=== PATIENT | female | born 1955 | race American Indian/Alaskan Native ===

== ENCOUNTER 2017-01-23 12:50 | Emergency (ER) | payer SELFPAY ==
[2017-01-23 15:12] LABS: Basophils % (Auto) 2.1 % (0.0-1.8); Eosinophils % (Auto) 1.1 % (0.0-4.3); Hematocrit 36.6 % (30.3-42.9); Hemoglobin 11.6 gm/dl (10.1-14.3); Mean Corpuscular HGB Conc 32 % (30-34); Mean Corpuscular Hemoglobin 27 pg (28-32); Mean Corpuscular Volume 84 fl (79-97); Platelet Count 274 K/mm3 (140-440); Red Blood Count 4.36 M/mm3 (3.65-5.03); Red Cell Distribution Width 17.2 % (13.2-15.2)
[2017-01-23 15:14] LABS: BUN/Creatinine Ratio 12.22; Blood Urea Nitrogen 11 mg/dL (7-17); Calcium 9.4 mg/dL (8.4-10.2); Carbon Dioxide 23 mmol/L (22-30); Glucose 229 mg/dL (65-100)
[2017-01-23 15:15] LABS: Anion Gap 18 mmol/L; Chloride 102.9 mmol/L (98-107); Potassium 3.3 mmol/L (3.6-5.0); Sodium 141 mmol/L (137-145)
[2017-01-23 15:48] LABS: Bilirubin,Urine NEG (Negative); Blood,Urine NEG (Negative); Ketones,Urine NEG (Negative); Leukocyte Esterase,Urine SM (Negative); Nitrite,Urine NEG (Negative); RBC,Urine < 1.0 /HPF (0.0-6.0); Urobilinogen,Urine < 2.0 mg/dL (<2.0)
[2017-01-23] MEDS ORDERED: CATAPRES ONE (18:58)
[2017-01-23] MEDS ORDERED: CATAPRES PO ONE (19:02)
--- NOTE | 2017-01-23 19:08 | Emergency Department Report ---
HPI - General Chief Complaint: Nosebleed Time Seen by Provider: 01/23/17 18:47 - HPI HPI: Room 9 The patient is a 62-year-old female presenting with a chief complaint of epistaxis and hypertension. Patient states she developed a nosebleed yesterday this usually happens when her blood pressure is elevated. Patient states she has not been on her blood pressure medication for several months. Patient denies any other complaints. When asked how she is feeling currently the patient replies that she feels "fine." Patient denies headache chest pain or shortness of breath. Location: [see above] Duration: [see above] Quality: Painless Severity: Moderate Modifying factors: [see above] Context: [see above] Mode of transportation: [not driving] ED Past Medical Hx - Past Medical History Hx Hypertension: Yes Hx Diabetes: Yes Additional medical history: TIA - Surgical History Additional Surgical History: GANGLIAN CYST REMOVED RIGHT WRIST. PARTIAL HYSTERECTOMY - Family History Family history: no significant - Social History Smoking Status: Current Every Day Smoker (1/2 pack per day) Substance Use Type: None - Medications Home Medications: Home Medications Medication Instructions Recorded Confirmed Last Taken Type Clonidine HCl [Catapres] 0.2 mg PO TID 06/27/14 06/30/14 06/24/14 History Hydralazine HCl [Apresoline TAB] 50 mg PO TID #90 tablet 07/09/14 Unknown Rx Metformin HCl [metFORMIN ER] 500 mg PO BID #60 tab.er.24 07/09/14 Unknown Rx Valsartan/Hydrochlorothiazide 160 mg PO DAILY #30 tablet 07/09/14 Unknown Rx [Valsartan-Hctz 160-25 mg] amLODIPine [Norvasc] 5 mg PO DAILY #30 tablet 07/09/14 Unknown Rx cloNIDine [Catapres] 0.2 mg PO TID #90 tablet 01/23/17 Unknown Rx ED Review of Systems ROS: Stated complaint: ELEVATED BP Other details as noted in HPI Comment: All other systems reviewed and negative Constitutional: denies: chills, fever Eyes: denies: eye pain, eye discharge, vision change ENT: epistaxis Respiratory: denies: cough, shortness of breath, wheezing Cardiovascular: denies: chest pain, palpitations Endocrine: no symptoms reported Gastrointestinal: denies: abdominal pain, nausea, diarrhea Genitourinary: denies: urgency, dysuria, discharge Musculoskeletal: denies: back pain, joint swelling, arthralgia Skin: denies: rash, lesions Neurological: denies: headache, weakness, paresthesias Psychiatric: denies: anxiety, depression Hematological/Lymphatic: denies: easy bleeding, easy bruising Physical Exam - Physical Exam Vital Signs: Vital Signs 01/23/17 14:16 Temperature 98.1 F Pulse Rate 79 Respiratory 18 Rate Blood Pressure 192/104 O2 Sat by Pulse 98 Oximetry Vital Signs - 24 hr 01/23/17 01/23/17 01/23/17 14:16 19:05 19:11 Temperature 98.1 F Pulse Rate 79 74 74 Respiratory 18 18 Rate Blood Pressure 192/104 187/101 Blood Pressure 187/101 [Left] O2 Sat by Pulse 98 Oximetry 01/23/17 20:31 Temperature Pulse Rate 51 L Respiratory Rate Blood Pressure Blood Pressure 154/80 [Left] O2 Sat by Pulse 100 Oximetry Physical Exam: GENERAL: The patient is well-developed well-nourished female lying on stretcher not appearing to be in acute distress. [] HEENT: Normocephalic. Atraumatic. Extraocular motions are intact. Patient has moist mucous membranes. No epistaxis. NECK: Supple. No meningitic signs are noted. There is no adenopathy noted. CHEST/LUNGS: Clear to auscultation. There is no respiratory distress noted. HEART/CARDIOVASCULAR: Regular. There is no tachycardia. There is no gallop rub or murmur. ABDOMEN: Abdomen is soft, nontender. Patient has normal bowel sounds. There is no abdominal distention. SKIN: There is no rash. There is no edema. There is no diaphoresis. NEURO: The patient is awake, alert, and oriented. The patient is cooperative. The patient has no focal neurologic deficits. The patient has normal speech. Cranial nerves II through XII grossly intact, no drift MUSCULOSKELETAL: There is no evidence of acute injury. ED Course Vital Signs 01/23/17 14:16 Temperature 98.1 F Pulse Rate 79 Respiratory 18 Rate Blood Pressure 192/104 O2 Sat by Pulse 98 Oximetry ED Medical Decision Making - Lab Data Result diagrams: 01/23/17 14:45 01/23/17 14:45 Laboratory Tests 01/23/17 01/23/17 01/23/17 14:27 14:45 14:45 WBC 6.0 RBC 4.36 Hgb 11.6 Hct 36.6 MCV 84 MCH 27 L MCHC 32 RDW 17.2 H Plt Count 274 Lymph % (Auto) 38.2 H [place] % (Auto) 4.1 Eos % (Auto) 1.1 Baso % (Auto) 2.1 H Lymph # 2.3 [place] # 0.2 Eos # 0.1 Baso # 0.1 Seg Neutrophils % 54.5 Seg Neutrophils # 3.3 Sodium 141 Potassium 3.3 L Chloride 102.9 Carbon Dioxide 23 Anion Gap 18 BUN 11 Creatinine 0.9 Estimated GFR > 60 BUN/Creatinine Ratio 12.22 Glucose 229 H POC Glucose 271 H Calcium 9.4 Urine Color Urine Turbidity Urine pH Ur Specific [place] Urine Protein Urine Glucose (UA) Urine Ketones Urine Blood Urine Nitrite Urine Bilirubin Urine Urobilinogen Ur Leukocyte Esterase Urine WBC (Auto) Urine RBC (Auto) U Epithel Cells (Auto) 01/23/17 15:33 WBC RBC Hgb Hct MCV MCH MCHC RDW Plt Count Lymph % (Auto) [place] % (Auto) Eos % (Auto) Baso % (Auto) Lymph # [place] # Eos # Baso # Seg Neutrophils % Seg Neutrophils # Sodium Potassium Chloride Carbon Dioxide Anion Gap BUN Creatinine Estimated GFR BUN/Creatinine Ratio Glucose POC Glucose Calcium Urine Color Yellow Urine Turbidity Clear Urine pH 6.0 Ur Specific [place] 1.015 Urine Protein 30 mg/dl Urine Glucose (UA) 150 Urine Ketones Neg Urine Blood Neg Urine Nitrite Neg Urine Bilirubin Neg Urine Urobilinogen < 2.0 Ur Leukocyte Esterase Sm Urine WBC (Auto) 8.0 H Urine RBC (Auto) < 1.0 U Epithel Cells (Auto) < 1.0 - Differential Diagnosis epistaxis, hypertension Critical care attestation.: If time is entered above; I have spent that time in minutes in the direct care of this critically ill patient, excluding procedure time. ED Disposition Clinical Impression: HTN (hypertension), History of epistaxis Disposition: DISCHARGED TO HOME OR SELFCARE Is pt being admited?: No Does the pt Need Aspirin: No Condition: Stable Instructions: Epistaxis (ED), Hypertension (ED) Additional Instructions: Return to the emergency department immediately should you develop worsening symptoms, fever, inability to tolerate food or liquid or any other concerns. Prescriptions: cloNIDine [Catapres] 0.2 mg PO TID #90 tablet Referrals: VESTA THOMAS MD [Primary Care Provider] - ARIELA Time of Disposition: 21:00
[2017-01-23 20:32] VITALS: BP 154/80
== END 2017-01-23 21:27 | disposition home or self-care (01) ==
LOC: ED 12:50
DX: I10 Essential (primary) hypertension (principal); E11.9 Type 2 diabetes mellitus without complications; Z86.73 Personal history of transient ischemic attack (TIA), and cerebral infarction without residual deficits; Z90.711 Acquired absence of uterus with remaining cervical stump; F17.200 Nicotine dependence, unspecified, uncomplicated; Z79.84 Long term (current) use of oral hypoglycemic drugs
CPT/HCPCS: 36415; 80048; 81001; 82962; 85025; 99283

== ENCOUNTER 2017-03-13 09:35 | Emergency (ER) | payer SELFPAY ==
[2017-03-13 10:36] LABS: Basophils % (Auto) 0.8 % (0.0-1.8); Eosinophils % (Auto) 2.9 % (0.0-4.3); Hemoglobin 11.2 gm/dl (10.1-14.3); Mean Corpuscular HGB Conc 32 % (30-34); Mean Corpuscular Hemoglobin 27 pg (28-32); Mean Corpuscular Volume 83 fl (79-97); Platelet Count 242 K/mm3 (140-440); Red Blood Count 4.23 M/mm3 (3.65-5.03); Red Cell Distribution Width 15.5 % (13.2-15.2); White Blood Count 5.2 K/mm3 (4.5-11.0)
[2017-03-13 10:51] LABS: INR 1.05 (0.87-1.13); Partial Thromboplastin Time 28.2 Sec. (24.2-36.6)
[2017-03-13 10:52] LABS: Anion Gap 15 mmol/L; BUN/Creatinine Ratio 12.22; Blood Urea Nitrogen 11 mg/dL (7-17); Calcium 9.5 mg/dL (8.4-10.2); Carbon Dioxide 27 mmol/L (22-30); Chloride 102.7 mmol/L (98-107); Glucose 152 mg/dL (65-100); Potassium 3.8 mmol/L (3.6-5.0); Sodium 141 mmol/L (137-145)
[2017-03-13] MEDS ORDERED: CATAPRES PO ONE (12:20)
[2017-03-13] MEDS ORDERED: APRESOLINE IV ONE (12:20)
--- NOTE | 2017-03-13 12:34 | Emergency Department Report ---
ED Dizziness HPI - General Chief Complaint: High BP Stated Complaint: HIGH BLOOD PRESSURE Time Seen by Provider: 03/13/17 12:10 Source: patient Mode of arrival: Ambulatory Limitations: No Limitations - History of Present Illness MD Complaint: dizziness, lightheadedness -: Gradual Timing: gradual onset History of Same: Yes History of Trauma: No Severity: mild Improves With: nothing Worsens With: nothing Associated Symptoms: weakness. denies: ataxia, chest pain, confusion, cough, diaphoresis, fever/chills, loss of appetite, malaise, rash, seizure, shortness of breath, syncope - Related Data Previous Rx's Medication Instructions Recorded Last Taken Type Hydralazine HCl [Apresoline TAB] 50 mg PO TID #90 tablet 03/13/17 Unknown Rx amLODIPine [Norvasc] 10 mg PO DAILY #90 tablet 03/13/17 Unknown Rx glipiZIDE [Glucotrol] 10 mg PO QDAY #90 tablet 03/13/17 Unknown Rx Allergies Allergy/AdvReac Type Severity Reaction Status Date / Time No Known Allergies Allergy Verified 01/23/17 14:32 ED Review of Systems ROS: Stated complaint: HIGH BLOOD PRESSURE Other details as noted in HPI Comment: All other systems reviewed and negative ED Past Medical Hx - Past Medical History Previous Medical History?: Yes Hx Hypertension: Yes Hx CVA: Yes (no residual) Hx Congestive Heart Failure: No Hx Diabetes: Yes Hx Asthma: No Hx COPD: No Additional medical history: TIA - Surgical History Past Surgical History?: Yes Additional Surgical History: GANGLIAN CYST REMOVED RIGHT WRIST. PARTIAL HYSTERECTOMY - Social History Smoking Status: Current Every Day Smoker Substance Use Type: Prescribed - Medications Home Medications: Home Medications Medication Instructions Recorded Confirmed Last Taken Type Hydralazine HCl [Apresoline TAB] 50 mg PO TID #90 tablet 03/13/17 Unknown Rx amLODIPine [Norvasc] 10 mg PO DAILY #90 tablet 03/13/17 Unknown Rx glipiZIDE [Glucotrol] 10 mg PO QDAY #90 tablet 03/13/17 Unknown Rx ED Physical Exam - General Limitations: No Limitations (-) General appearance: alert, in no apparent distress - Head Head exam: Present: atraumatic, normocephalic - Eye Eye exam: Present: normal appearance - ENT ENT exam: Present: mucous membranes moist - Neck Neck exam: Present: normal inspection - Respiratory Respiratory exam: Present: normal lung sounds bilaterally. Absent: respiratory distress - Cardiovascular Cardiovascular Exam: Present: regular rate, normal rhythm. Absent: systolic murmur, diastolic murmur, rubs, gallop - GI/Abdominal GI/Abdominal exam: Present: soft, normal bowel sounds - Extremities Exam Extremities exam: Present: normal inspection - Back Exam Back exam: Present: normal inspection - Neurological Exam Neurological exam: Present: alert, oriented X3 - Psychiatric Psychiatric exam: Present: normal affect, normal mood - Skin Skin exam: Present: warm, dry, intact, normal color. Absent: rash ED Course Vital Signs 03/13/17 03/13/17 03/13/17 10:02 12:30 12:39 Temperature 98.2 F 98.7 F Pulse Rate 54 L 69 69 Respiratory 18 16 Rate Blood Pressure 184/114 224/110 Blood Pressure 224/110 [Left] O2 Sat by Pulse 100 98 Oximetry 03/13/17 03/13/17 03/13/17 12:40 12:42 13:00 Temperature Pulse Rate 69 Respiratory Rate Blood Pressure 224/110 Blood Pressure 118/56 [Left] O2 Sat by Pulse 99 Oximetry 03/13/17 13:36 Temperature Pulse Rate 68 Respiratory 14 Rate Blood Pressure Blood Pressure 140/56 [Left] O2 Sat by Pulse 99 Oximetry ED Medical Decision Making - Lab Data Result diagrams: 03/13/17 10:19 03/13/17 10:19 - EKG Data -: EKG Interpreted by Or EKG shows normal: sinus rhythm - EKG Data Interpretation: no acute changes - Radiology Data Radiology results: report reviewed, image reviewed - Medical Decision Making patient doing well, came for HTN urgency due to non compliance with meds. workup included labs and head ct and were negative. will refill her meds and dc with close follow up Critical care attestation.: If time is entered above; I have spent that time in minutes in the direct care of this critically ill patient, excluding procedure time. ED Disposition Clinical Impression: HTN (hypertension) Disposition: DISCHARGED TO HOME OR SELFCARE Is pt being admited?: No Does the pt Need Aspirin: No Condition: Good Instructions: Hypertension (ED) Prescriptions: amLODIPine [Norvasc] 10 mg PO DAILY #90 tablet glipiZIDE [Glucotrol] 10 mg PO QDAY #90 tablet Hydralazine HCl [Apresoline TAB] 50 mg PO TID #90 tablet Time of Disposition: 13:45
--- NOTE | 2017-03-13 13:04 | Cat Scan Report ---
CT HEAD WITHOUT CONTRAST INDICATION: Headache, hypertension. COMPARISON: 06/28/2014. FINDINGS: Noncontrast head CT demonstrates interval resolution of intracranial hemorrhage with mild ex-vacuo dilatation of the left lateral ventricle. Normal sulci and remainder ventricular system. Mild to moderate periventricular and white matter hypodense small vessel ischemic disease. No definite acute infarct, hemorrhage, mass effect or midline shift. No abnormal extra axial fluid collections. Normal posterior fossa with preserved basilar cisterns. Unremarkable eye globes. Clear imaged paranasal sinuses and mastoid air cells. Slight atherosclerotic internal carotid artery calcifications. Mild hyperostosis frontalis interna. Normal scalp. CONCLUSION: No acute intracranial CT abnormality with findings, as above. Thank you for the opportunity to participate in this patient's care.
[2017-03-13 14:52] VITALS: BP 163/71
== END 2017-03-13 14:50 | disposition home or self-care (01) ==
LOC: ED 09:35
DX: I10 Essential (primary) hypertension (principal); E11.9 Type 2 diabetes mellitus without complications; F17.200 Nicotine dependence, unspecified, uncomplicated
CPT/HCPCS: 36415; 70450; 80048; 84484; 85025; 85610; 85730; 93005; 93010; 96374; 99285; J0360

== ENCOUNTER 2017-08-21 11:35 | Emergency (ER) | payer SELFPAY ==
[2017-08-21 12:58] LABS: Basophils % (Auto) 0.5 % (0.0-1.8); Eosinophils % (Auto) 0.7 % (0.0-4.3); Hematocrit 35.3 % (30.3-42.9); Hemoglobin 11.3 gm/dl (10.1-14.3); Mean Corpuscular HGB Conc 32 % (30-34); Mean Corpuscular Hemoglobin 27 pg (28-32); Mean Corpuscular Volume 85 fl (79-97); Platelet Count 202 K/mm3 (140-440); Red Blood Count 4.15 M/mm3 (3.65-5.03); White Blood Count 4.9 K/mm3 (4.5-11.0)
[2017-08-21 12:59] LABS: Partial Thromboplastin Time 28.1 Sec. (24.2-36.6)
[2017-08-21 13:08] LABS: Anion Gap 17 mmol/L; BUN/Creatinine Ratio 16; Blood Urea Nitrogen 18 mg/dL (7-17); Calcium 9.1 mg/dL (8.4-10.2); Carbon Dioxide 25 mmol/L (22-30); Glucose 119 mg/dL (65-100); Potassium 3.9 mmol/L (3.6-5.0); Sodium 145 mmol/L (137-145)
--- NOTE | 2017-08-21 13:19 | Cat Scan Report ---
Cranial CT without contrast. History: Neurological deficits upon wakening. Findings: Comparison is made to the previous study on March 13, 2017. There is a round area of acute hemorrhage in the right thalamus measuring 1.4 cm in diameter. There is minimal extrinsic compression of the right lateral aspect of the third ventricle. No additional areas of hemorrhage are seen. The posterior fossa is normal. The ventricles are otherwise unremarkable. Bilateral periventricular white matter hypodensities are stable. There are no masses or extra-axial collections. The calvarium is normal. Impression: 1. Acute hemorrhagic infarct in the right thalamus with minimal mass effect as described. 2. Chronic periventricular white matter ischemic changes, stable since March 13, 2017. Comment: Code purple: These findings were given by phone to the charge nurse, Mr. Good in the emergency room at 1:10 PM on August 20, 2017.
--- NOTE | 2017-08-21 13:32 | Emergency Department Report ---
ED Neuro Deficit HPI - General Chief Complaint: Neuro Symptoms/Deficit Stated Complaint: LEFT SIDE WEAKNESS Time Seen by Provider: 08/21/17 13:26 Source: patient, family Mode of arrival: Wheelchair Limitations: No Limitations - History of Present Illness Initial Comments: This is a 62-year-old female with a history of hemorrhagic stroke who presents with left upper extremity weakness and clumsiness and unsteady gait. Symptoms started at 10:00 PM last night. They're constant. They have no exacerbating or relieving factors. CT scan in the ER today demonstrated a right-sided thalamic hemorrhagic stroke. -: Gradual Location: left arm Presenting Symptoms: Present: Weak/Paralyzed One Side History of same: Yes Place: home Severity: moderate Quality: weak, numb Improves With: none Worsens With: none On Anticoagulants: No Context: gradual onset Associated Symptoms: vertigo, weakness. denies: confusion, chest pain, diaphoresis, fever/chills, headaches, loss of appetite, malise, nausea/vomiting , shortness of breath, syncope - Related Data Home Medications: Previous Rx's Medication Instructions Recorded Last Taken Type Hydralazine HCl [Apresoline TAB] 50 mg PO TID #90 tablet 03/13/17 Unknown Rx amLODIPine [Norvasc] 10 mg PO DAILY #90 tablet 03/13/17 Unknown Rx glipiZIDE [Glucotrol] 10 mg PO QDAY #90 tablet 03/13/17 Unknown Rx Allergies/Adverse Reactions: Allergies Allergy/AdvReac Type Severity Reaction Status Date / Time No Known Allergies Allergy Verified 08/21/17 11:39 ED Review of Systems ROS: Stated complaint: LEFT SIDE WEAKNESS Other details as noted in HPI Constitutional: malaise. denies: fever Eyes: denies: vision change ENT: denies: epistaxis Respiratory: denies: cough Cardiovascular: denies: chest pain Gastrointestinal: denies: abdominal pain Genitourinary: denies: urgency, dysuria Musculoskeletal: denies: back pain Skin: denies: lesions Neurological: weakness, abnormal gait ED Past Medical Hx - Past Medical History Hx Hypertension: Yes Hx CVA: Yes (no residual) Hx Congestive Heart Failure: No Hx Diabetes: Yes Hx Asthma: No Hx COPD: No Additional medical history: TIA - Surgical History Additional Surgical History: GANGLIAN CYST REMOVED RIGHT WRIST. PARTIAL HYSTERECTOMY - Social History Smoking Status: Current Every Day Smoker Substance Use Type: None - Medications Home Medications: Home Medications Medication Instructions Recorded Confirmed Last Taken Type Hydralazine HCl [Apresoline TAB] 50 mg PO TID #90 tablet 03/13/17 Unknown Rx amLODIPine [Norvasc] 10 mg PO DAILY #90 tablet 03/13/17 Unknown Rx glipiZIDE [Glucotrol] 10 mg PO QDAY #90 tablet 03/13/17 Unknown Rx ED Neuro Physical Exam - General Limitations: No Limitations General appearance: alert, in no apparent distress Suspected Stroke: Yes - Head Head exam: Present: atraumatic, normocephalic - Eye Eye exam: Present: normal appearance, PERRL, EOMI, other (visual acuity intact to finger counting, color perception, reading at a close distance). Absent: nystagmus - ENT ENT exam: Present: normal exam, normal orophraynx, mucous membranes moist, normal external ear exam - Neck Neck exam: Present: normal inspection, full ROM. Absent: tenderness, meningismus - Respiratory Respiratory exam: Present: normal lung sounds bilaterally. Absent: respiratory distress, wheezes, rales, rhonchi, stridor, chest wall tenderness, accessory muscle use, decreased breath sounds, prolonged expiratory - Cardiovascular Cardiovascular Exam: Present: regular rate, normal rhythm, normal heart sounds. Absent: bradycardia, tachycardia, irregular rhythm, systolic murmur, diastolic murmur, rubs, gallop - GI/Abdominal GI/Abdominal exam: Present: soft, normal bowel sounds. Absent: distended, tenderness, guarding, rebound, rigid - Extremities Exam Extremities exam: Present: normal inspection, full ROM, normal capillary refill. Absent: pedal edema, joint swelling, calf tenderness - Back Exam Back exam: Present: normal inspection, full ROM. Absent: paraspinal tenderness , vertebral tenderness - Neurological Exam Neurological exam: Present: alert, oriented X3, abnormal gait (patient is clumsy and ataxic in the left upper extremity), motor sensory deficit (there is 4 out of 5 strength in the left upper extremity), other (there is no facial droop. The tongue is midline. Extraocular movements are intact bilaterally. Sensation intact to light touch in the bilateral upper and lower extremities.) - NIHSS Assessment Interval: Baseline 1a. Level of Consciousness: alert 1b. LOC Questions: answers correctly 1c. LOC Commands: performs tasks correctly 2. Best Gaze: normal 3. Visual: no visual loss 4. Facial Palsy: normal symmetrical movement 5b. Motor Arm Right: no drift 5a. Motor Arm Left: drift 6a. Motor Leg Left: no drift 6b. Motor Leg Right: no drift 7. Limb Ataxia: present 1 limb 8. Sensory: normal 9. Best Language: no aphasia 10. Dysarthria: normal 11. Extinction/Inattention: no abnormality Total Score: 2 Stroke Severity: Minor Stroke - Psychiatric Psychiatric exam: Present: normal affect, normal mood - Skin Skin exam: Present: warm, dry, intact, normal color. Absent: rash ED Course Vital Signs 08/21/17 08/21/17 08/21/17 11:39 13:26 13:31 Temperature 98.1 F Pulse Rate 87 Respiratory 18 Rate Blood Pressure 130/92 155/83 155/83 Blood Pressure [Left] O2 Sat by Pulse 97 99 100 Oximetry 08/21/17 08/21/17 08/21/17 14:00 14:25 14:30 Temperature Pulse Rate 52 L 49 L Respiratory 17 16 16 Rate Blood Pressure 158/88 167/83 Blood Pressure [Left] O2 Sat by Pulse 100 99 99 Oximetry 08/21/17 08/21/17 08/21/17 15:00 15:30 16:00 Temperature Pulse Rate 45 L 45 L 44 L Respiratory 11 L 12 16 Rate Blood Pressure 162/86 161/83 159/83 Blood Pressure [Left] O2 Sat by Pulse 99 99 100 Oximetry 08/21/17 08/21/17 08/21/17 16:29 16:30 17:00 Temperature Pulse Rate 50 L 52 L 65 Respiratory 17 16 Rate Blood Pressure 167/95 141/71 149/78 Blood Pressure [Left] O2 Sat by Pulse 98 100 Oximetry 08/21/17 08/21/17 17:30 18:40 Temperature Pulse Rate 72 67 Respiratory 14 16 Rate Blood Pressure 144/80 Blood Pressure 154/82 [Left] O2 Sat by Pulse 97 99 Oximetry - Reevaluation(s) Reevaluation #1: 08/21/17 14:53 Reassessed, appears comfortable, protecting airway. - Lab Data Result diagrams: 08/21/17 12:33 08/21/17 12:33 Lab Results 08/21/17 08/21/17 08/21/17 Range/Units 12:33 12:33 12:33 WBC 4.9 (4.5-11.0) K/mm3 RBC 4.15 (3.65-5.03) M/mm3 Hgb 11.3 (10.1-14.3) gm/dl Hct 35.3 (30.3-42.9) % MCV 85 (79-97) fl MCH 27 L (28-32) pg MCHC 32 (30-34) % RDW 15.0 (13.2-15.2) % Plt Count 202 (140-440) K/mm3 Lymph % (Auto) 39.5 H (13.4-35.0) % [place] % (Auto) 5.3 (0.0-7.3) % Eos % (Auto) 0.7 (0.0-4.3) % Baso % (Auto) 0.5 (0.0-1.8) % Lymph # 2.0 (1.2-5.4) K/mm3 [place] # 0.3 (0.0-0.8) K/mm3 Eos # 0.0 (0.0-0.4) K/mm3 Baso # 0.0 (0.0-0.1) K/mm3 Seg Neutrophils % 54.0 (40.0-70.0) % Seg Neutrophils # 2.7 (1.8-7.7) K/mm3 PT 13.7 (12.2-14.9) Sec. INR 1.00 (0.87-1.13) APTT 28.1 (24.2-36.6) Sec. Thrombin Time (15.1-19.6) Sec. Sodium 145 (137-145) mmol/L Potassium 3.9 (3.6-5.0) mmol/L Chloride 107.0 (98-107) mmol/L Carbon Dioxide 25 (22-30) mmol/L Anion Gap 17 mmol/L BUN 18 H (7-17) mg/dL Creatinine 1.1 (0.7-1.2) mg/dL Estimated GFR > 60 ml/min BUN/Creatinine Ratio 16 % Glucose 119 H (65-100) mg/dL Calcium 9.1 (8.4-10.2) mg/dL Troponin T < 0.010 (0.00-0.029) ng/mL 08/21/ Range/Units 12:33 WBC (4.5-11.0) K/mm3 RBC (3.65-5.03) M/mm3 Hgb (10.1-14.3) gm/dl Hct (30.3-42.9) % MCV (79-97) fl MCH (28-32) pg MCHC (30-34) % RDW (13.2-15.2) % Plt Count (140-440) K/mm3 Lymph % (Auto) (13.4-35.0) % [place] % (Auto) (0.0-7.3) % Eos % (Auto) (0.0-4.3) % Baso % (Auto) (0.0-1.8) % Lymph # (1.2-5.4) K/mm3 [place] # (0.0-0.8) K/mm3 Eos # (0.0-0.4) K/mm3 Baso # (0.0-0.1) K/mm3 Seg Neutrophils % (40.0-70.0) % Seg Neutrophils # (1.8-7.7) K/mm3 PT (12.2-14.9) Sec. INR (0.87-1.13) APTT (24.2-36.6) Sec. Thrombin Time 15.9 (15.1-19.6) Sec. Sodium (137-145) mmol/L Potassium (3.6-5.0) mmol/L Chloride (98-107) mmol/L Carbon Dioxide (22-30) mmol/L Anion Gap mmol/L BUN (7-17) mg/dL Creatinine (0.7-1.2) mg/dL Estimated GFR ml/min BUN/Creatinine Ratio % Glucose (65-100) mg/dL Calcium (8.4-10.2) mg/dL Troponin T (0.00-0.029) ng/mL - EKG Data -: EKG Interpreted by De EKG shows normal: sinus rhythm Rate: normal Interpretation: unchanged when compared t - Radiology Data Radiology results: report reviewed, image reviewed CT scan demonstrates right-sided thalamic stroke - Medical Decision Making Differential diagnosis: Hemorrhagic stroke, ischemic stroke Assessment and plan: 62-year-old female with spontaneous right-sided thalamic hemorrhagic stroke, left-sided ataxia and weakness, NIH score of 2, GCS of 15, not a thrombolysis or TPA candidate secondary to intracranial hemorrhage. This hospital does not have neurosurgery, or neurology or neuro critical care available for consultation. Given the presence of intracranial hemorrhage with neurologic findings, patient will benefit from transfer to a facility that has these aforementioned subspecialty services. Contacted [facility], they do not have ICU beds. Contacted [facility], case is discussed with Dr. Mayers, accepting neuro critical care physician, accepts patient to the ICU. Patient has no headache, neck pain, chest pain, abdominal pain or shortness of breath at this time. He does not recommend antiepileptic drug therapy at this time, the family informed. Patient informed. Critical Care Time: Yes Critical care time in (mins) excluding proc time.: 35 Critical care attestation.: If time is entered above; I have spent that time in minutes in the direct care of this critically ill patient, excluding procedure time. ED Disposition Clinical Impression: Acute intracerebral hemorrhage Disposition: [id number] IP Is pt being admited?: No Condition: Critical Referrals: PRIMARY CARE, [Primary Care Provider] - 3-5 Days
[2017-08-21] MEDS ORDERED: APRESOLINE IV ONE (16:24)
[2017-08-21] MEDS ORDERED: APRESOLINE ONE (16:28)
[2017-08-21 18:47] VITALS: BP 154/82
== END 2017-08-21 18:40 | disposition short-term general hospital (02) ==
LOC: ED 11:35
DX: I61.9 Nontraumatic intracerebral hemorrhage, unspecified (principal); I10 Essential (primary) hypertension; E11.9 Type 2 diabetes mellitus without complications; F17.200 Nicotine dependence, unspecified, uncomplicated; Z90.710 Acquired absence of both cervix and uterus
CPT/HCPCS: 36415; 70450; 80048; 84484; 85025; 85610; 85670; 85730; 93005; 93010; 96374; 99291; J0360

== ENCOUNTER 2018-01-25 13:06 | Emergency (ER) | payer OTHER ==
--- NOTE | 2018-01-25 15:03 | Cat Scan Report ---
FINAL REPORT EXAM: CT HEAD/BRAIN WO CON HISTORY: RT SIDE WEAKNESS TECHNIQUE: CT of the head was performed. No intravenous contrast was administered. PRIORS: None. FINDINGS: There is no evidence of intracranial hemorrhage. There is no edema, mass effect or midline shift. There are no abnormal extra-axial fluid collections. The ventricles are appropriate for brain volume. There is no skull fracture seen. The visualized aspects of the sinuses are clear. IMPRESSION: There is no acute intracranial abnormality identified.
[2018-01-25 15:24] LABS: Basophils # (Auto) 0.1 K/mm3 (0.0-0.1); Eosinophils # (Auto) 0.1 K/mm3 (0.0-0.4); Hematocrit 36.2 % (30.3-42.9); Hemoglobin 11.9 gm/dl (10.1-14.3); Lymphocytes # (Auto) 1.4 K/mm3 (1.2-5.4); Lymphocytes % (Auto) 24.7 % (13.4-35.0); Mean Corpuscular HGB Conc 33 % (30-34); Mean Corpuscular Hemoglobin 28 pg (28-32); Mean Corpuscular Volume 84 fl (79-97); Monocytes # (Auto) 0.3 K/mm3 (0.0-0.8); Monocytes % (Auto) 4.5 % (0.0-7.3); Platelet Count 184 K/mm3 (140-440); Red Blood Count 4.31 M/mm3 (3.65-5.03); Red Cell Distribution Width 16.2 % (13.2-15.2)
[2018-01-25 15:33] LABS: INR 0.89 (0.87-1.13); Partial Thromboplastin Time 26.9 Sec. (24.2-36.6); Thrombin Time 15.5 Sec. (15.1-19.6)
[2018-01-25 15:45] LABS: BUN/Creatinine Ratio 14; Blood Urea Nitrogen 10 mg/dL (7-17); Calcium 9.3 mg/dL (8.4-10.2); Hemolysis Index 2
--- NOTE | 2018-01-25 16:14 | Emergency Department Report ---
HPI - General Chief Complaint: Neuro Symptoms/Deficit Time Seen by Provider: 01/25/18 13:59 - HPI HPI: 63-year-old -Serbian female states she tripped and fell on the carpet and had some right-sided pain and weakness on the floor. Upon getting off the floor her weakness was gone, still having some pain. Denies any hip pain any chest pain. Patients can move all extremities, no slurred speech. Patient has a history of blood pressure, past CVA. ED Past Medical Hx - Past Medical History Hx Hypertension: Yes Hx CVA: Yes (no residual) Hx Congestive Heart Failure: No Hx Diabetes: Yes Hx Asthma: No Hx COPD: No Additional medical history: TIA - Surgical History Additional Surgical History: GANGLIAN CYST REMOVED RIGHT WRIST. PARTIAL HYSTERECTOMY - Social History Smoking Status: Never Smoker - Medications Home Medications: Home Medications Medication Instructions Recorded Confirmed Last Taken Type Hydralazine HCl [Apresoline TAB] 50 mg PO TID #90 tablet 03/13/17 Unknown Rx amLODIPine [Norvasc] 10 mg PO DAILY #90 tablet 03/13/17 Unknown Rx glipiZIDE [Glucotrol] 10 mg PO QDAY #90 tablet 03/13/17 Unknown Rx ED Review of Systems ROS: Stated complaint: LEFT SIDED WEAKNESS Other details as noted in HPI Comment: All other systems reviewed and negative ENT: denies: ear pain Musculoskeletal: denies: back pain, joint swelling Neurological: denies: headache, weakness Physical Exam - Physical Exam Vital Signs: Vital Signs 01/25/18 01/25/18 01/25/18 13:46 13:51 14:56 Temperature 98.3 F Pulse Rate 62 72 Respiratory 18 18 Rate Blood Pressure 153/89 Blood Pressure 170/93 [Right] O2 Sat by Pulse 96 96 Oximetry Physical Exam: - Physical Exam: - General Limitations: No Limitations General appearance: alert, in no apparent distress. - Head Head exam: Present: atraumatic, normocephalic - Eye Eye exam: Present: normal appearance - ENT ENT exam: Present: mucous membranes moist - Neck Neck exam: Present: normal inspection - Respiratory Respiratory exam: Present: normal lung sounds bilaterally. Absent: respiratory distress - Cardiovascular Cardiovascular Exam: Present: normal rhythm, tachycardia. Absent: systolic murmur, diastolic murmur, rubs, gallop - GI/Abdominal GI/Abdominal exam: Present: soft, normal bowel sounds - Extremities Exam Extremities exam: Present: normal inspection - Back Exam Back exam: Present: normal inspection - Neurological Exam Neurological exam: Present: alert, oriented X3 - Psychiatric Psychiatric exam: normal affect and mood - Skin Skin exam: Present: warm, dry, intact, normal color. Absent: rash ED Course Vital Signs 01/25/18 01/25/18 01/25/18 13:46 13:51 14:56 Temperature 98.3 F Pulse Rate 62 72 Respiratory 18 18 Rate Blood Pressure 153/89 Blood Pressure 170/93 [Right] O2 Sat by Pulse 96 96 Oximetry ED Medical Decision Making - Lab Data Result diagrams: 01/25/18 14:37 01/25/18 14:37 Critical care attestation.: If time is entered above; I have spent that time in minutes in the direct care of this critically ill patient, excluding procedure time. ED Disposition Clinical Impression: Fall Qualifiers: Encounter type: initial encounter Qualified Code(s): W19.XXXA - Unspecified fall, initial encounter Disposition: - TO HOME OR SELFCARE Is pt being admited?: No Does the pt Need Aspirin: No Condition: Stable Instructions: Fall Prevention for Older Adults (ED) Referrals: PRIMARY CARE, [Primary Care Provider] - 3-5 Days
[2018-01-25 17:52] VITALS: BP 165/94
== END 2018-01-25 17:30 | disposition home or self-care (01) ==
LOC: ED 13:06
DX: R53.1 Weakness (principal); M79.1 Myalgia; I10 Essential (primary) hypertension; E11.9 Type 2 diabetes mellitus without complications; Z86.73 Personal history of transient ischemic attack (TIA), and cerebral infarction without residual deficits
CPT/HCPCS: 36415; 70450; 80048; 84484; 85025; 85610; 85670; 85730; 93005; 93010; 99285

== ENCOUNTER 2019-01-26 17:22 | Inpatient (IN) | payer SELFPAY ==
[2019-01-26] MEDS ORDERED: TYLENOL PO PRN (19:12)
[2019-01-26] MEDS ORDERED: DULCOLAX PR PRN (19:12)
[2019-01-26] MEDS ORDERED: MILK OF MAGNESIA PO PRN (19:12)
[2019-01-26] MEDS ORDERED: D50W (25GM) Syringe IV PRN (19:12)
--- NOTE | 2019-01-26 20:19 | History and Physical Report ---
History of Present Illness Date: 01/26/19 Referring Facility: [facility] Date of admission: 01/26/19 19:49 Chief Complaint: CVA History of present illness: 64-year-old female who presented to the ED with stroke symptoms. Stated that nick campoverde had taken a nap and woke up with right facial droop and dysarthria. She was outside the therapeutic window for TPA and was not a candidate for thrombectomy. She was worked up for CVA and the brain MRI showed small left internal capsule lacunar infarct. Hemoglobin A1c at outside hospital was 5.3. She has a history of previous strokes in the past. She and her son state that she had recovered from previous strokes without major residual deficits. She is right hand dominant. She lives with family in a single story home and was previously independent with ADLs. She states is been several days since her last bowel movement. She's been sleeping poorly but declines assistance with medication. Secondary prevention was discussed with her and her son. Stroke prognosis and anticipated recovery time was also discussed. After the patient was medically stabilized they were transferred for further rehabilitation. All available medical records have been reviewed but there are limited records from the acute care hospital. Plan of care was discussed with patient and family and all questions were answered. Past History Past Medical History: diabetes, hypertension, hyperlipidemia, stroke Past Surgical History: No surgical history Social history: lives with family, smoking, full code, other (previously independent, single-story home). denies: alcohol abuse, prescription drug abuse, IV drug use Family history: CAD, cancer, diabetes, hypertension Medications and Allergies Allergies Allergy/AdvReac Type Severity Reaction Status Date / Time No Known Allergies Allergy Verified 08/21/17 11:39 Home Medications Medication Instructions Recorded Confirmed Last Taken Type Hydralazine HCl [Apresoline TAB] 50 mg PO TID #90 tablet 03/13/17 Unknown Rx amLODIPine [Norvasc] 10 mg PO DAILY #90 tablet 03/13/17 Unknown Rx glipiZIDE [Glucotrol] 10 mg PO QDAY #90 tablet 03/13/17 Unknown Rx Active Meds: Active Medications Acetaminophen (Tylenol) 650 mg PO Q4H PRN PRN Reason: Pain MILD(1-3)/Fever >100.5/ARCHER Amlodipine Besylate (Norvasc) 10 mg PO QDAY BAY Aspirin (Ecotrin) 325 mg PO QDAY BAY Atorvastatin Calcium (Lipitor) 40 mg PO QHS BAY Bisacodyl (Dulcolax) 10 mg GA QDAY PRN PRN Reason: Constipation unrelieved by MOM Carvedilol (Coreg) 6.25 mg PO BID BAY Dextrose (D50w (25gm) Syringe) 50 ml IV PRN PRN PRN Reason: Hypoglycemia Enoxaparin Sodium (Lovenox) 40 mg SUB-Q QDAY BAY Insulin Human Lispro (Humalog) 0 unit SUB-Q ACHS BAY; Protocol Lisinopril (Zestril) 40 mg PO QDAY BAY Magnesium Hydroxide (Milk Of Magnesia) 30 ml PO Q4H PRN PRN Reason: Constipation Review of Systems All systems: negative (ROS negative for 12 systems except as noted below with pertinent positives and negatives.) Constitutional: weakness Ears, nose, mouth and throat: dysphagia, voice changes, no decreased hearing Cardiovascular: high blood pressure, no chest pain, no rapid/irregular heart beat, no shortness of breath, no leg edema Respiratory: cough Gastrointestinal: constipation, no nausea, no vomiting Genitourinary Female: no dysuria Musculoskeletal: gait dysfunction Neurological: lack of coordination, change in speech, balance difficulties, gait dysfunction, sensory deficit, no headaches, no change in mentation, no double vision, no hearing difficulties Exam - Exam Narrative exam: MUSCULOSKELETAL SPECIALTY EXAM CONSTITUTIONAL: Well developed, well nourished, appropriately groomed. RIGHT hand dominant. LYMPHATIC: No appreciable abnormalities palpable in neck RESPIRATORY: Clear to ascultation bilaterally, no increased work of breathing CARDIOVASCULAR: Regular Rate/ Rhythm, no swelling, edema or tenderness in BUE or BLE. Pulses palpable in all extremities. All extremities warm. GI: + bowel sounds, soft, NTTP, nondistended. INTEGUMENTARY: Normal, no lesion, rash, masses or bruising noted in extremities. MUSCULOSKELETAL: BUE and BLE normal without defect, crepitus, subluxation, effusion, arthritic changes or TTP. SA EF WE EE FF FA HF KE ADF EHL APF R 4-/5 4-/5 4-/5 4-/5 4-/5 4-/5 4-/5 4-/5 4-/5 4-/5 4-/5 L 5/5 5/5 5/5 5/5 5/5 5 /5 5/5 5/5 5/5 5/5 5/5 ROM full Tone normal NEURO: CN II : Visual hedrick full to confrontation CN II, III : PERRL CN III, IV, : EOMI CN V : Facial sensation intact CN VII : Right facial droop CN VIII : Hearing intact to finger rustle CN IX, X : Palate/uvula elevate midline, phonation impaired CN XI : Intact shoulder shrug and head rotation CN XII : Tongue protrudes midline Sensation intact in all extremities with extinction present on RLE Reflexes 3+ bilaterally at biceps, brachioradialis and patella. No clonus at ankles. Coordination intact in LUE, and altered in RUE. No tremor noted in 4 extremities. Naming and repetition intact. Follows 2 step commands. Dysarthria present Dysphagia present Neglect not appreciated POSTURE and GAIT: Sitting posture good. Balance appears fair. Gait deferred until seen with therapy. PSYCH: Alert, orientated x3, affect appears flat. Insight appears intact. Assessment and Plan Assessment and plan: Patient was assessed and evaluated for Acute Inpatient Rehab Unit. Due to the patients above-mentioned medical complexity, along with decreased functional mobility and self care, this patient continues to require and be appropriate for a comprehensive, multidisciplinary [id number] rehabilitation program. These needs cannot be met in an outpatient or other less intensive setting. The patient would continue to benefit from skilled therapy intervention for at least 3 hours per day, five days a week, with techniques specific to the needs of the patient to improve function, activities of daily living, and reintegration into the community. The patient continues to require: -- OT to improve ROM, self-care, and learn use of adaptive equipment -- PT to improve strength and balance, functional transfers, and ambulation with energy conservation techniques to improve functional mobility -- EXCHANGE TROUBLE SHOOTER to address cognitive deficits and swallowing ability -- 24 hour RN to ensure and prevent skin breakdown, promote progressive independence while ensuring safety, ensure education regarding medications, and incorporation of the rehabilitation at the bedside -- 24 hour Graduate Student Instructor to coordinate this interdisciplinary program, and to manage/prevent complications as a result of the patients medical comorbidities. -Plan of care by day 4 -Weekly team conferences With such a program, there is a reasonable certainty that the goals individualized for this patient can be achieved within the specified length of stay. I69.351 CVA with hemiparesis of the right dominant side: Continue secondary stroke prevention. Monitor for post stroke depression and CRPS. Continue therapy in order to improve stroke recovery. Monitor for change in neurologic function or worsening of stroke symptoms. I69.391 Dysphagia: Continue dysphagia diet and advance as safely able. EXCHANGE TROUBLE SHOOTER monitor and may use FEES and/or MBS to assess for safe diet upgrade. E-stim if needed. I69.322 Dysarthria: Continue EXCHANGE TROUBLE SHOOTER strategies to improve vocalization and are alternative methods of communication if needed. K59.00 Constipation: Start MiraLAX monitor for improvement. Z73.6 ADL dysfunction: OT will work on improving ability to perform ADLs ( including assistive devices) to increase independence and decrease caregiver burden and improve functional transfers and mobility training. R26.2 Difficulty walking: PT will work on gait training and proper use of assistive devices and advance as appropriate to use of stairs and outside ambulation on uneven surfaces. R26.81 Unsteadiness on feet: PT will work on improving static and dynamic sitting and standing balance as well as proper use of assistive devices to decrease risk of falls. R26.89 Abnormality of gait: PT will work to improve safety and efficiency of gait through neuromotor training and gait training along with instruction on proper use of assistive devices. M62.81 Muscle weakness: PT & OT will work on strengthening exercises to improve functional strength including mixture of closed and open kinetic chain exercises. R53.81 Debility: PT & OT will work on improving overall functional status to improve participation with ADLs, mobility and social involvement. R53.83 Fatigue: PT & OT will work on improving endurance through aerobic exercises and therapeutic activity while monitoring patients tolerance for activity and vital signs as needed. Internal medicine consultation for management of diabetes and hypertension. Orders for medications have been placed and the holds were placed on antihypertensives. Appreciate their assistance DVT ppx: Lovenox Pain: Continue physical modalities in therapy and pain medications as needed to achieve functional pain control. Sleep: Monitor and address as needed. Bowel: Monitor and address as needed. Appetite: Monitor and address as needed. Discharge planning: Pending therapy progress and care plan meeting. Will continue discussion with therapy team, SW, patient and family. Restrictions/ Precautions: Falls, swallow WB status: FWB Functional Hx: ADLs: Independent Cognition: Independent Mobility: No AD Barriers to Discharge: Decreased mobility and ability to perform self care, balance deficits, weakness, dominant hemiparesis, dysphagia and dysarthria Estimated Length of Stay: 14-21 days Discharge Destination: Home with family POST ADMISSION PHYSICIAN EVALUATION I have examined the patient and find that functional status, medical condition and appropriateness for IRF admission are essentially unchanged from those described in the preadmission screening. Will monitor for worsening neurologic function and other disorders associated with CVA including shoulder-hand syndrome, post stroke depression, worsening dysphagia, DVT/PE, bowel and bladder complications and complications due to hypertension and diabetes and electrolyte abnormalities. Will attempt to avoid occurrence of these issues or treat them if they present themselves.
[2019-01-26] MEDS: HumaLOG SUB-Q SCH (23:06)
[2019-01-26] MEDS: COREG PO SCH (23:08)
[2019-01-27 05:35] LABS: Basophils % (Auto) 0.6 % (0.0-1.8); Eosinophils # (Auto) 0.1 K/mm3 (0.0-0.4); Hematocrit 32.5 % (30.3-42.9); Hemoglobin 10.6 gm/dl (10.1-14.3); Lymphocytes # (Auto) 2.2 K/mm3 (1.2-5.4); Lymphocytes % (Auto) 54.4 % (13.4-35.0); Mean Corpuscular HGB Conc 33 % (30-34); Mean Corpuscular Volume 84 fl (79-97); Monocytes # (Auto) 0.3 K/mm3 (0.0-0.8); Monocytes % (Auto) 6.7 % (0.0-7.3); Platelet Count 175 K/mm3 (140-440); Red Blood Count 3.85 M/mm3 (3.65-5.03); Red Cell Distribution Width 14.3 % (13.2-15.2)
[2019-01-27 05:54] LABS: Alanine Aminotransferase 6 units/L (7-56); Albumin 3.4 g/dL (3.9-5); BUN/Creatinine Ratio 10; Blood Urea Nitrogen 8 mg/dL (7-17); Chol/HDL Ratio 2.28 %; HDL Cholesterol 49 mg/dL (40-59); Hemolysis Index 2; LDL Cholesterol,Direct 56 mg/dL (50-130)
[2019-01-27] MEDS: HumaLOG SUB-Q SCH ×3 (07:32→16:29)
[2019-01-27] MEDS: NORVASC PO SCH (08:47)
[2019-01-27] MEDS: COREG PO SCH ×2 (08:47→22:14)
[2019-01-27] MEDS: MIRALAX 3350 PO SCH (08:48)
[2019-01-27] MEDS: LOVENOX SUB-Q SCH (08:48)
[2019-01-27] MEDS: ZESTRIL PO SCH (08:48)
[2019-01-27] MEDS: ECOTRIN PO SCH (08:49)
--- NOTE | 2019-01-27 15:20 | Consultation ---
History of Present Illness - Reason for Consult Consult date: 01/27/19 medical management Requesting physician: DAPHNE WYATT III - History of Present Illness 52 pleasant 64-year-old female patient with significant past medical history of diabetes mellitus hypertension dyslipidemia cerebrovascular accident with right facial weakness and dysarthria, patient was not a candidate for TPA or thrombectomy. Admitted to acute rehabilitation unit for rehabilitation PT/OT/ST.Medical consult requested for medical management Patient has history of type 2 diabetes mellitus on oral hypoglycemics, hypertension and dyslipidemia as well as ongoing tobacco use Time of my evaluation patient denies any chest pain or shortness of breath Denies headache dizziness, denies shortness of breath or cough Past History Past Medical History: diabetes, hypertension, hyperlipidemia, stroke Past Surgical History: No surgical history Social history: lives with family, smoking, full code, other (previously independent, single-story home). denies: alcohol abuse, prescription drug ab use, IV drug use Family history: CAD, cancer, diabetes, hypertension Medications and Allergies Allergies Allergy/AdvReac Type Severity Reaction Status Date / Time No Known Allergies Allergy Verified 08/21/17 11:39 Home Medications Medication Instructions Recorded Confirmed Last Taken Type Hydralazine HCl [Apresoline TAB] 50 mg PO TID #90 tablet 03/13/17 Unknown Rx amLODIPine [Norvasc] 10 mg PO DAILY #90 tablet 03/13/17 Unknown Rx glipiZIDE [Glucotrol] 10 mg PO QDAY #90 tablet 03/13/17 Unknown Rx Active Meds: Active Medications Acetaminophen (Tylenol) 650 mg PO Q4H PRN PRN Reason: Pain MILD(1-3)/Fever >100.5/ARCHER Amlodipine Besylate (Norvasc) 10 mg PO QDAY [facility] Last Admin: 01/27/19 08:47 Dose: 10 mg Documented by: Aspirin (Ecotrin) 325 mg PO QDAY [facility] Last Admin: 01/27/19 08:49 Dose: 325 mg Documented by: Atorvastatin Calcium (Lipitor) 40 mg PO QHS [facility] Last Admin: 01/26/19 23:08 Dose: 40 mg Documented by: Bisacodyl (Dulcolax) 10 mg HI QDAY PRN PRN Reason: Constipation unrelieved by MOM Carvedilol (Coreg) 6.25 mg PO BID [facility] Last Admin: 01/27/19 08:47 Dose: 6.25 mg Documented by: Dextrose (D50w (25gm) Syringe) 50 ml IV PRN PRN PRN Reason: Hypoglycemia Enoxaparin Sodium (Lovenox) 40 mg SUB-Q QDAY [facility] Last Admin: 01/27/19 08:48 Dose: 40 mg Documented by: Insulin Human Lispro (Humalog) 0 unit SUB-Q [facility]; Protocol Last Admin: 01/26/19 23:06 Dose: Not Given Documented by: Lisinopril (Zestril) 40 mg PO QDAY [facility] Last Admin: 01/27/19 08:48 Dose: 40 mg Documented by: Magnesium Hydroxide (Milk Of Magnesia) 30 ml PO Q4H PRN PRN Reason: Constipation Polyethylene Glycol (Miralax 3350) 17 gm PO QDAY [facility] Last Admin: 01/27/19 08:48 Dose: 17 gm Documented by: Review of Systems Constitutional: fatigue, weakness, no weight loss, no weight gain Ears, nose, mouth and throat: no nasal congestion, no nasal discharge Cardiovascular: no chest pain, no orthopnea, no palpitations, no lightheadedness Respiratory: no cough, no hemoptysis Gastrointestinal: no abdominal pain, no nausea, no vomiting Genitourinary Female: no flank pain, no dysuria Musculoskeletal: other, no myalgias, no arthritis Integumentary: no rash, no lesions Neurological: weakness, other (dysarthria, facial weakness) Psychiatric: no anxiety, no depression Endocrine: no cold intolerance, no heat intolerance, no polyuria, no nocturia Hematologic/Lymphatic: no easy bruising, no easy bleeding Allergic/Immunologic: no urticaria, no allergic rhinitis Exam - Constitutional Vitals: Temp Pulse Resp BP Pulse Ox 97.8 F 66 18 139/82 98 01/27/19 12:00 01/27/19 12:00 01/27/19 12:00 01/27/19 12:00 01/27/19 12:00 General appearance: Present: no acute distress, well-nourished - EENT Eyes: Present: PERRL, EOM intact - Neck Neck: Present: supple, normal ROM - Respiratory Respiratory effort: normal Respiratory: bilateral: diminished, negative: rales, rhonchi, wheezing - Cardiovascular Rhythm: regular Heart Sounds: Present: S1 & S2 - Extremities Extremities: No edema - Abdominal General gastrointestinal: Present: soft, non-tender, non-distended, normal bowel sounds - Integumentary Integumentary: Present: clear, warm - Musculoskeletal Musculoskeletal: right sided weakness, other (dysarthria) - Psychiatric Psychiatric: appropriate mood/affect, cooperative - Neurologic Neurologic: other (dysarthria, right facial droop, mild right-sided weakness) Results - Labs CBC & Chem 7: 01/27/19 05:12 01/29/19 07:26 Labs: Abnormal lab results 01/26/19 01/27/19 01/27/19 Range/Units 22:35 05:12 05:12 WBC 4.1 L (4.5-11.0) K/mm3 Lymph % (Auto) 54.4 H (13.4-35.0) % Seg Neutrophils % 35.3 L (40.0-70.0) % Seg Neutrophils # 1.5 L (1.8-7.7) K/mm3 Potassium 3.5 L (3.6-5.0) mmol/L Chloride 107.1 H (98-107) mmol/L Glucose 106 H (65-100) mg/dL POC Glucose 112 H (70-105) ALT 6 L (7-56) units/L Total Protein 5.9 L (6.3-8.2) g/dL Albumin 3.4 L (3.9-5) g/dL 01/27/19 Range/Units 11:34 WBC (4.5-11.0) K/mm3 Lymph % (Auto) (13.4-35.0) % Seg Neutrophils % (40.0-70.0) % Seg Neutrophils # (1.8-7.7) K/mm3 Potassium (3.6-5.0) mmol/L Chloride (98-107) mmol/L Glucose (65-100) mg/dL POC Glucose 158 H (70-105) ALT (7-56) units/L Total Protein (6.3-8.2) g/dL Albumin (3.9-5) g/dL Assessment and Plan --Hypertension; moderate control Continue current antihypertensives and when necessary medications --Type 2 diabetes mellitus; Accu-Chek sliding scale coverage and ADA diet Oral hypoglycemics, check hemoglobin A1c, diabetic education if needed --Dyslipidemia; continue statin, low cholesterol diet --History of CVA; with right-sided weakness Not a candidate for TPA or thrombectomy Physical therapy occupational therapist is therapy Speech therapyRehabilitation per protocol --Mild/moderate malnutrition hypoalbuminemia; nutrition supplements --DVT prophylaxis; Lovenox --Full code Monitor closely and adjust the management as needed Plan of care is reviewed with the patient and the son at the bedside Thank you for this consultation We will follow the patient along with you
[2019-01-27] MEDS ORDERED: NON-FORMULARY (Hydralazine Hcl [Apresoline Tab] 50 MG) PO SCH (20:00)
[2019-01-27] MEDS: APRESOLINE PO SCH (22:13)
[2019-01-28] MEDS: HumaLOG SUB-Q SCH ×4 (01:24→23:05)
[2019-01-28] MEDS: LOVENOX SUB-Q SCH (09:23)
[2019-01-28] MEDS: ZESTRIL PO SCH (09:24)
[2019-01-28] MEDS: ECOTRIN PO SCH (09:24)
[2019-01-28] MEDS: COREG PO SCH ×2 (09:24→23:03)
[2019-01-28] MEDS: NORVASC PO SCH (09:25)
[2019-01-28] MEDS: GLUCOTROL PO SCH (09:25)
[2019-01-28] MEDS: APRESOLINE PO SCH ×3 (09:26→23:04)
[2019-01-28] MEDS: MIRALAX 3350 PO SCH (09:26)
[2019-01-28] MEDS ORDERED: NORVASC PO SCH ×2 (10:00)
--- NOTE | 2019-01-28 11:00 | Progress Note ---
Subjective Date of service: 01/28/19 Principal diagnosis: CVA Interval history: 64-year-old female who presented to the ED with stroke symptoms. Stated that she had taken a nap and woke up with right facial droop and dysarthria. She was outside the therapeutic window for TPA and was not a candidate for thrombectomy. She was worked up for CVA and the brain MRI showed small left internal capsule lacunar infarct. Hemoglobin A1c at outside hospital was 5.3. She has a history of previous strokes in the past. She and her son state that she had recovered from previous strokes without major residual deficits. She is right hand dominant. She lives with family in a single story home and was previously independent with ADLs. She states is been several days since her last bowel movement. She's been sleeping poorly but declines assistance with medication. Secondary prevention was discussed with her and her son. Stroke prognosis and anticipated recovery time was also discussed. She is placed back on glipizide by internal medicine. She seemed to be well controlled with this at home. Antihypertensives were adjusted by internal medicine as well. Appreciate their assistance, will continue to monitor. Potassium slightly low, will replace and recheck. Vital signs within normal limits. Patient was discussed in team conference. She is making fair progress and will need to continue working with therapy in order to improve and return back to her prior level of function. With continued work we hope to be able to get her prepared for safe discharge home. She is scheduled for a modified barium swallow today. Patient is participating in therapy and making reasonable progress. Taking rest breaks as needed. -BM, will utilize suppository this afternoon. Denies pain, palpitations, dyspnea, cough, N/V or joint pain. All records, vitals, labs and medications were reviewed. No other issues per patient, nursing or therapy. Objective - Exam Narrative Exam: MUSCULOSKELETAL SPECIALTY EXAM CONSTITUTIONAL: Well developed, well nourished, appropriately groomed. RIGHT hand dominant. RESPIRATORY: Clear to auscultation bilaterally, no increased work of breathing CARDIOVASCULAR: Regular Rate/ Rhythm, no swelling, edema or tenderness in BUE or BLE. All extremities warm. GI: + bowel sounds, soft, NTTP, nondistended. INTEGUMENTARY: Normal, no lesion, rash, masses or bruising noted in extremities. MUSCULOSKELETAL: BUE and BLE normal without defect, crepitus, subluxation, effusion, arthritic changes or TTP. SA EF WE EE FF FA HF KE ADF EHL APF R 4-/5 4-/5 4-/5 4-/5 4-/5 4-/5 4-/5 4-/5 4-/5 4-/5 4-/5 L 5/5 5/5 5/5 5/5 5/5 5 /5 5/5 5/5 5/5 5/5 5/5 ROM full Tone normal NEURO: CN II - XII intact except Right facial droop Sensation intact in all extremities with extinction present on RLE No tremor noted in 4 extremities. Naming and repetition intact. Follows 2 step commands. Dysarthria present Dysphagia present POSTURE and GAIT: Sitting posture good. Balance appears fair. Gait deferred until seen with therapy. PSYCH: Alert, orientated x3, affect appears flat. Insight appears intact. - Constitutional Vitals: Vital Signs - 12hr 01/28/19 01/28/19 01/28/19 05:29 07:39 07:40 Temperature 36.7 C 37.2 C Pulse Rate 52 L 67 52 L Respiratory 18 18 Rate Blood Pressure 140/77 131/86 O2 Sat by Pulse 100 96 100 Oximetry 01/28/19 01/28/19 01/28/19 09:24 09:25 09:26 Temperature Pulse Rate 60 60 60 Respiratory Rate Blood Pressure 131/80 131/80 131/80 O2 Sat by Pulse Oximetry 01/28/19 09:27 Temperature Pulse Rate 60 Respiratory Rate Blood Pressure 131/80 O2 Sat by Pulse Oximetry - Allied health notes Allied health notes reviewed: nursing, PT, ST, OT FIMS assessment as documented by PT/OT/ST: Grooming Patient cleans teeth/dentures: Yes Patient blanco/brushes hair: No Patient washes, rinses and Yes dries face: Patient washes, rinses and Yes dries hands: Patient applies make-up: No Patient performs (no make-up/ 3/4 (75%) shaving): Grooming FIM Score 4. Minimal Assistance (Patient = 75% or more. Needs touching.) Toileting Toileting Device Grab Bar Patient able to: Adjust clothes before Patient able to perform: 2/3 (67%) Toileting FIM Score 3. Moderate Assistance (Patient = 50% or more. Some lifting.) Social interaction/Memory/Problem solving Social Interaction FIM Score 7. Complete [place] (Interacts appropriately. Controls temper.) Memory FIM Score 6. Modified [place](Mild difficulty remembering people/routines.) Problem Solving FIM Score 4. Minimal Assistance (Solves routine problems 75-90%.) Transfers Mode of Locomotion: Walking Bed/Chair/Wheelchair Transfers 3. Moderate Assistance (Patient = 50% or more. FIM Score Some lifting.) Toilet Transfers FIM Score 4. Minimal Assistance (Patient = 75% or more. Needs touching.) Patient transferred to: Shower Shower Transfers FIM Score 4. Minimal Assistance (Patient = 75% or more. Needs touching.) Locomotion- Stairs Stairs FIM Score 0. Activity does not occur Locomotion- walk/wheelchair Most Frequent Mode of Walking Locomotion: Ambulation Distance 6 Walking FIM Score 3. Moderate Assistance (Patient=50% or more. Lifting. Minimum 150 ft.) Wheelchair FIM Score 4. Minimal Assistance (Patient = 75% or more. Minimum of 150 ft.) Eating Eating FIM Score 5. Supervision/Set-Up (Needs help w/ containers, cutting meat, etc.) Dressing-Upper body Patient retrieves clothing No items: Patient applies/removes UE No: n/a prosthesis or orthosis: Upper Body Dressing FIM Score 4. Minimal Assistance (Patient = 75% or more. Needs touching.) Dressing-lower body Patient retrieves clothing No items: Patient applies/removes LE No: n/a prosthesis or orthosis: Lower Body Dressing FIM Score 3. Moderate Assistance (Patient = 50% or more) - Labs CBC & Chem 7: 01/27/19 05:12 01/27/19 05:12 Labs: Laboratory Results - last 72 hr 01/26/19 01/27/19 01/27/19 22:35 05:12 05:12 WBC 4.1 L RBC 3.85 Hgb 10.6 Hct 32.5 MCV 84 MCH 28 MCHC 33 RDW 14.3 Plt Count 175 Lymph % (Auto) 54.4 H [place] % (Auto) 6.7 Eos % (Auto) 3.0 Baso % (Auto) 0.6 Lymph # 2.2 [place] # 0.3 Eos # 0.1 Baso # 0.0 Seg Neutrophils % 35.3 L Seg Neutrophils # 1.5 L Sodium 142 Potassium 3.5 L Chloride 107.1 H Carbon Dioxide 24 Anion Gap 14 BUN 8 Creatinine 0.8 Estimated GFR > 60 BUN/Creatinine Ratio 10 Glucose 106 H POC Glucose 112 H Calcium 9.0 Total Bilirubin 0.20 AST 11 ALT 6 L Alkaline Phosphatase 63 Total Protein 5.9 L Albumin 3.4 L Albumin/Globulin Ratio 1.4 Triglycerides 85 Cholesterol 112 LDL Cholesterol Direct 56 HDL Cholesterol 49 Cholesterol/HDL Ratio 2.28 01/27/19 01/27/19 01/27/19 07:57 11:34 16:45 WBC RBC Hgb Hct MCV MCH MCHC RDW Plt Count Lymph % (Auto) [place] % (Auto) Eos % (Auto) Baso % (Auto) Lymph # [place] # Eos # Baso # Seg Neutrophils % Seg Neutrophils # Sodium Potassium Chloride Carbon Dioxide Anion Gap BUN Creatinine Estimated GFR BUN/Creatinine Ratio Glucose POC Glucose 105 158 H 97 Calcium Total Bilirubin AST ALT Alkaline Phosphatase Total Protein Albumin Albumin/Globulin Ratio Triglycerides Cholesterol LDL Cholesterol Direct HDL Cholesterol Cholesterol/HDL Ratio 01/27/19 01/28/19 22:43 07:42 WBC RBC Hgb Hct MCV MCH MCHC RDW Plt Count Lymph % (Auto) [place] % (Auto) Eos % (Auto) Baso % (Auto) Lymph # [place] # Eos # Baso # Seg Neutrophils % Seg Neutrophils # Sodium Potassium Chloride Carbon Dioxide Anion Gap BUN Creatinine Estimated GFR BUN/Creatinine Ratio Glucose POC Glucose 124 H 112 H Calcium Total Bilirubin AST ALT Alkaline Phosphatase Total Protein Albumin Albumin/Globulin Ratio Triglycerides Cholesterol LDL Cholesterol Direct HDL Cholesterol Cholesterol/HDL Ratio Assessment and Plan I69.351 CVA with hemiparesis of the right dominant side: Continue secondary stroke prevention. Monitor for post stroke depression and CRPS. Continue therapy in order to improve stroke recovery. Monitor for change in neurologic function or worsening of stroke symptoms. I69.391 Dysphagia: Continue dysphagia diet and advance as safely able. WINE STEWARD/STEWARDESS monitor and may use FEES and/or MBS to assess for safe diet upgrade. E-stim if needed. MBSS showed aspiration - [facility] / Eighty Four Thick I69.322 Dysarthria: Continue WINE STEWARD/STEWARDESS strategies to improve vocalization and are alternative methods of communication if needed. K59.00 Constipation: Start MiraLAX monitor for improvement. No improvement, suppository today E87.6 Hypokalemia: Replace and recheck BMP and Mg. Z73.6 ADL dysfunction: OT will work on improving ability to perform ADLs (including assistive devices) to increase independence and decrease caregiver b urden and improve functional transfers and mobility training. R26.2 Difficulty walking: PT will work on gait training and proper use of assistive devices and advance as appropriate to use of stairs and outside ambulation on uneven surfaces. R26.81 Unsteadiness on feet: PT will work on improving static and dynamic sitting and standing balance as well as proper use of assistive devices to decrease risk of falls. R26.89 Abnormality of gait: PT will work to improve safety and efficiency of gait through neuromotor training and gait training along with instruction on proper use of assistive devices. M62.81 Muscle weakness: PT & OT will work on strengthening exercises to improve functional strength including mixture of closed and open kinetic chain exercises. R53.81 Debility: PT & OT will work on improving overall functional status to improve participation with ADLs, mobility and social involvement. R53.83 Fatigue: PT & OT will work on improving endurance through aerobic exercises and therapeutic activity while monitoring patients tolerance for activity and vital signs as needed. Internal medicine consultation for management of diabetes and hypertension. Orders for medications have been placed and the holds were placed on antihypertensives. Appreciate their assistance DVT ppx: Lovenox Pain: Continue physical modalities in therapy and pain medications as needed to achieve functional pain control. Sleep: Monitor and address as needed. Bowel: Monitor and address as needed. Appetite: Monitor and address as needed. Discharge planning: Pending therapy progress and care plan meeting. Will continue discussion with therapy team, SW, patient and family. Restrictions/ Precautions: Falls, swallow WB status: FWB Functional Hx: ADLs: Independent Cognition: Independent Mobility: No AD Barriers to Discharge: Decreased mobility and ability to perform self care, balance deficits, weakness, dominant hemiparesis, dysphagia and dysarthria Estimated Length of Stay: 14-21 days Discharge Destination: Home with family
--- NOTE | 2019-01-28 13:04 | Fluoroscopy Report ---
Modified barium swallow under video fluoroscopy fluoroscopy time 3 minutes.: History: Dysphagia. Findings: There was penetration noted during swallowing of liquid barium. This was not seen with solid food. Completed report to be provided by speech therapist. Impression: Findings as detailed above.
[2019-01-28] MEDS ORDERED: DULCOLAX PR ONE (15:00)
[2019-01-28] MEDS ORDERED: K-DUR PO ONE ×2 (16:00→23:13)
--- NOTE | 2019-01-28 20:06 | Progress Note ---
Assessment and Plan Assessment and plan: --History of CVA; with right-sided weakness Not a candidate for TPA or thrombectomy Physical therapy occupational therapist is therapy Speech therapy ,Rehabilitation per protocols --Hypertension; moderate control Continue current antihypertensives and when necessary medications --Type 2 diabetes mellitus; Accu-Chek sliding scale coverage and ADA diet Oral hypoglycemics, check hemoglobin A1c, diabetic education if needed --Dyslipidemia; continue statin, low cholesterol diet --Mild/moderate malnutrition hypoalbuminemia; nutrition supplements Supportive care --DVT prophylaxis; Lovenox --Full code Monitor closely and adjust the management as needed Plan of care is reviewed with the patient and the son at the bedside History Interval history: Patient seen and examined medical records reviewed No new events. Reported by the nursing patient feels slightly better no new complaints Vital signs noted Hospitalist Physical - Constitutional Vitals: Temp Pulse Resp BP Pulse Ox 97.9 F 63 18 148/85 100 01/28/19 16:30 01/28/19 16:30 01/28/19 16:30 01/28/19 16:30 01/28/19 12:22 General appearance: Present: no acute distress, well-nourished - EENT Eyes: Present: PERRL, EOM intact - Neck Neck: Present: supple, normal ROM - Respiratory Respiratory effort: normal Respiratory: bilateral: diminished, negative: rales, rhonchi, wheezing - Cardiovascular Rhythm: regular Heart Sounds: Present: S1 & S2 - Extremities Extremities: no ischemia, No edema - Abdominal General gastrointestinal: soft, non-tender, non-distended, distended - Integumentary Integumentary: Present: clear, warm - Psychiatric Psychiatric: appropriate mood/affect, other (dysarthria) - Neurologic Neurologic: other (residual weakness) Results - Labs CBC & Chem 7: 01/27/19 05:12 01/29/19 07:26 Labs: Laboratory Last Values WBC 4.1 K/mm3 (4.5-11.0) L 01/27/19 05:12 RBC 3.85 M/mm3 (3.65-5.03) 01/27/19 05:12 Hgb 10.6 gm/dl (10.1-14.3) 01/27/19 05:12 Hct 32.5 % (30.3-42.9) 01/27/19 05:12 MCV 84 fl (79-97) 01/27/19 05:12 MCH 28 pg (28-32) 01/27/19 05:12 MCHC 33 % (30-34) 01/27/19 05:12 RDW 14.3 % (13.2-15.2) 01/27/19 05:12 Plt Count 175 K/mm3 (140-440) 01/27/19 05:12 Lymph % (Auto) 54.4 % (13.4-35.0) H 01/27/19 05:12 [place] % (Auto) 6.7 % (0.0-7.3) 01/27/19 05:12 Eos % (Auto) 3.0 % (0.0-4.3) 01/27/19 05:12 Baso % (Auto) 0.6 % (0.0-1.8) 01/27/19 05:12 Lymph # 2.2 K/mm3 (1.2-5.4) 01/27/19 05:12 [place] # 0.3 K/mm3 (0.0-0.8) 01/27/19 05:12 Eos # 0.1 K/mm3 (0.0-0.4) 01/27/19 05:12 Baso # 0.0 K/mm3 (0.0-0.1) 01/27/19 05:12 Seg Neutrophils % 35.3 % (40.0-70.0) L 01/27/19 05:12 Seg Neutrophils # 1.5 K/mm3 (1.8-7.7) L 01/27/19 05:12 Sodium 142 mmol/L (137-145) 01/27/19 05:12 Potassium 3.5 mmol/L (3.6-5.0) L 01/27/19 05:12 Chloride 107.1 mmol/L (98-107) H 01/27/19 05:12 Carbon Dioxide 24 mmol/L (22-30) 01/27/19 05:12 Anion Gap 14 mmol/L 01/27/19 05:12 BUN 8 mg/dL (7-17) 01/27/19 05:12 Creatinine 0.8 mg/dL (0.7-1.2) 01/27/19 05:12 Estimated GFR > 60 ml/min 01/27/19 05:12 BUN/Creatinine Ratio 10 % 01/27/19 05:12 Glucose 106 mg/dL (65-100) H 01/27/19 05:12 POC Glucose 54 (70-105) L 01/28/19 16:59 Calcium 9.0 mg/dL (8.4-10.2) 01/27/19 05:12 Total Bilirubin 0.20 mg/dL (0.1-1.2) 01/27/19 05:12 AST 11 units/L (5-40) 01/27/19 05:12 ALT 6 units/L (7-56) L 01/27/19 05:12 Alkaline Phosphatase 63 units/L (35-129) 01/27/19 05:12 Total Protein 5.9 g/dL (6.3-8.2) L 01/27/19 05:12 Albumin 3.4 g/dL (3.9-5) L 01/27/19 05:12 Albumin/Globulin Ratio 1.4 % 01/27/19 05:12 Triglycerides 85 mg/dL (2-149) 01/27/19 05:12 Cholesterol 112 mg/dL (50-199) 01/27/19 05:12 LDL Cholesterol Direct 56 mg/dL (50-130) 01/27/19 05:12 HDL Cholesterol 49 mg/dL (40-59) 01/27/19 05:12 Cholesterol/HDL Ratio 2.28 % 01/27/19 05:12 Active Medications - Current Medications Current Medications: Generic Name Dose Route Start Last Admin Trade Name Freq PRN Reason Stop Dose Admin Acetaminophen 650 mg 01/26/19 19:12 Tylenol PO Q4H PRN Pain MILD(1-3)/Fever >100.5/ARCHER Amlodipine Besylate 10 mg 01/27/19 08:00 01/28/19 09:25 Norvasc PO 10 mg QDAY BAY Administration Aspirin 325 mg 01/27/19 08:00 01/28/19 09:24 Ecotrin PO 325 mg QDAY BAY Administration Atorvastatin Calcium 40 mg 01/26/19 21:00 01/27/19 22:12 Lipitor PO 40 mg QHS BAY Administration Bisacodyl 10 mg 01/26/19 19:12 Dulcolax [place] QDAY PRN Constipation unrelieved by MOM Carvedilol 6.25 mg 01/26/19 22:00 01/28/19 09:24 Coreg PO 6.25 mg BID BAY Administration Dextrose 50 ml 01/26/19 19:12 D50w (25gm) Syringe IV PRN PRN Hypoglycemia Enoxaparin Sodium 40 mg 01/27/19 08:00 01/28/19 09:23 Lovenox SUB-Q 40 mg QDAY BAY Administration Glipizide 10 mg 01/28/19 08:00 01/28/19 09:25 Glucotrol PO 10 mg QDDIAB BAY Administration Hydralazine HCl 50 mg 01/27/19 22:00 01/28/19 15:41 Apresoline PO 50 mg Q8HR BAY Administration Insulin Human Lispro 0 unit 01/26/19 22:00 01/28/19 15:46 Humalog SUB-Q Not Given [facility]S [facility] Protocol Lisinopril 40 mg 01/27/19 08:00 01/28/19 09:24 Zestril PO 40 mg QDAY BAY Administration Magnesium Hydroxide 30 ml 01/26/19 19:12 Milk Of Magnesia PO Q4H PRN Constipation Polyethylene Glycol 17 gm 01/27/19 08:00 01/28/19 09:26 Miralax 3350 PO 17 gm QDAY BAY Administration Nutrition/Malnutrition Assess - Dietary Evaluation Nutrition/Malnutrition Findings: Nutrition Notes Start: 01/27/19 12:34 Freq: Status: Active Protocol: Document 01/27/19 12:34 RM (Rec: 01/27/19 12:39 RM [id number]) Nutrition Notes Need for Assessment generated from: MD Order Initial or Follow up Assessment Current Diagnosis Diabetes,Hypertension, Hyperlipidemia Other Pertinent Diagnosis Hx multiple CVAs Current Diet Consistent CHO Labs/Tests A1c 5.3 per Hx and physical Pertinent Medications Reviewed Height 5 ft 1 in Weight 52.9 kg [place] Body Weight (kg) 47.72 BMI 22.0 Subjective/Other Information Consulted for DM diet education. Reviewed DM diet education to prevention development of prediabetes. Gave handout. #1 Nutrition Diagnosis Food and nutrition-related knowledge deficit Etiology lack of prior education As Evidenced by Signs and Symptoms no prior knowledge of need for food and nutrition recommendations Nutrition Intervention Teaching Recipient Patient Learning Readiness Good Teaching Methods Discussion,Handout Response to Teaching Verbalize understanding Education Handouts Provided Carbohydrate Counting for People with Diabetes Barriers to Learning No Barriers RD phone number provided Yes Patient aware of follow up options Yes Goal #1 Utilize carbohydrate counting Revisit per MD consult or patient Sign Off request:
[2019-01-29] MEDS: APRESOLINE PO SCH ×3 (07:34→22:45)
[2019-01-29 07:59] LABS: BUN/Creatinine Ratio 19; Blood Urea Nitrogen 19 mg/dL (7-17); Calcium 9.1 mg/dL (8.4-10.2); Hemolysis Index 18; Prealbumin 0.225 g/L (0.200-0.400)
--- NOTE | 2019-01-29 08:48 | Progress Note ---
Subjective Date of service: 01/29/19 Principal diagnosis: CVA Interval history: 64-year-old female who presented to the ED with stroke symptoms. Stated that she had taken a nap and woke up with right facial droop and dysarthria. She was outside the therapeutic window for TPA and was not a candidate for thrombectomy. She was worked up for CVA and the brain MRI showed small left internal capsule lacunar infarct. Hemoglobin A1c at outside hospital was 5.3. She has a history of previous strokes in the past. She and her son state that she had recovered from previous strokes without major residual deficits. She is right hand dominant. She lives with family in a single story home and was previously independent with ADLs. She states is been several days since her last bowel movement. She's been sleeping poorly but declines assistance with medication. Secondary prevention was discussed with her and her son. Stroke prognosis and anticipated recovery time was also discussed. Potassium normalized. Renal function good, not dehydrated. Encouraged to continue PO fluid intake - she is not a fan of thickener. Vital signs within normal limits, will need to avoid hypotension. Discussed disability with patient and daughter yesterday afternoon as well as secondary stroke prevention and use of RW for safety. Patient is participating in therapy and making reasonable progress. Taking rest breaks as needed. +BM. Denies pain, palpitations, dyspnea, cough, N/V or joint pain. All records, vitals, labs and medications were reviewed. No other issues per patient, nursing or therapy. Objective - Exam Narrative Exam: MUSCULOSKELETAL SPECIALTY EXAM CONSTITUTIONAL: Well developed, well nourished, appropriately groomed. RIGHT hand dominant. RESPIRATORY: Clear to auscultation bilaterally, no increased work of breathing CARDIOVASCULAR: Regular Rate/ Rhythm, no swelling, edema or tenderness in BUE or BLE. All extremities warm. GI: + bowel sounds, soft, NTTP, nondistended. INTEGUMENTARY: Normal, no lesion, rash, masses or bruising noted in extremities. MUSCULOSKELETAL: BUE and BLE normal without defect, crepitus, subluxation, effusion, arthritic changes or TTP. SA EF WE EE FF FA HF KE ADF EHL APF R 4-/5 4-/5 4-/5 4-/5 4-/5 4-/5 4-/5 4-/5 4-/5 4-/5 4-/5 L 5/5 5/5 5/5 5/5 5/5 5 /5 5/5 5/5 5/5 5/5 5/5 ROM full Tone normal NEURO: CN II - XII intact except Right facial droop Sensation intact in all extremities with extinction present on RLE No tremor noted in 4 extremities. Naming and repetition intact. Follows 2 step commands. Dysarthria present Dysphagia present POSTURE and GAIT: Sitting posture good. Balance appears fair. Gait deferred until seen with therapy. PSYCH: Alert, orientated x3, affect appears flat. Insight appears intact. - Constitutional Vitals: Vital Signs - 12hr 01/28/19 01/28/19 01/29/19 23:03 23:04 07:34 Temperature Pulse Rate 67 67 72 Respiratory Rate Blood Pressure 132/84 132/84 115/79 Blood Pressure [Left] O2 Sat by Pulse Oximetry 01/29/19 08:09 Temperature 36.6 C Pulse Rate 72 Respiratory 18 Rate Blood Pressure Blood Pressure 115/79 [Left] O2 Sat by Pulse 97 Oximetry - Allied health notes Allied health notes reviewed: nursing, PT, ST, OT FIMS assessment as documented by PT/OT/ST: Grooming Patient cleans teeth/dentures: Yes Patient blanco/brushes hair: No Patient washes, rinses and Yes dries face: Patient washes, rinses and Yes dries hands: Patient applies make-up: No Patient performs (no make-up/ 3/4 (75%) shaving): Grooming FIM Score 4. Minimal Assistance (Patient = 75% or more. Needs touching.) Toileting Toileting Device Grab Bar Patient able to: Adjust clothes before Patient able to perform: 2/3 (67%) Toileting FIM Score 3. Moderate Assistance (Patient = 50% or more. Some lifting.) Social interaction/Memory/Problem solving Social Interaction FIM Score 7. Complete Dixon (Interacts appropriately. Controls temper.) Memory FIM Score 6. Modified Dixon(Mild difficulty remembering people/routines.) Problem Solving FIM Score 4. Minimal Assistance (Solves routine problems 75-90%.) Transfers Mode of Locomotion: Walking Bed/Chair/Wheelchair Transfers 4. Minimal Assistance (Patient = 75% or more. FIM Score Needs touching.) Toilet Transfers FIM Score 4. Minimal Assistance (Patient = 75% or more. Needs touching.) Patient transferred to: Shower Shower Transfers FIM Score 4. Minimal Assistance (Patient = 75% or more. Needs touching.) Locomotion- Stairs Stairs FIM Score 0. Activity does not occur Locomotion- walk/wheelchair Most Frequent Mode of Walking Locomotion: Ambulation Distance 150 Walking FIM Score 4. Minimal Assistance (Patient = 75% or more. Minimum of 150 ft.) Wheelchair Propulsion Distance 150 Wheelchair FIM Score 5. Supervision (Minimum 150 ft. supv./cues or 50 ft. independently.) Eating Eating FIM Score 5. Supervision/Set-Up (Needs help w/ containers, cutting meat, etc.) Dressing-Upper body Patient retrieves clothing No items: Patient applies/removes UE No: n/a prosthesis or orthosis: Upper Body Dressing FIM Score 4. Minimal Assistance (Patient = 75% or more. Needs touching.) Dressing-lower body Patient retrieves clothing No items: Patient applies/removes LE No: n/a prosthesis or orthosis: Lower Body Dressing FIM Score 3. Moderate Assistance (Patient = 50% or more) - Labs CBC & Chem 7: 01/27/19 05:12 01/29/19 07:26 Labs: Laboratory Results - last 72 hr 01/26/19 01/27/19 01/27/19 22:35 05:12 05:12 WBC 4.1 L RBC 3.85 Hgb 10.6 Hct 32.5 MCV 84 MCH 28 MCHC 33 RDW 14.3 Plt Count 175 Lymph % (Auto) 54.4 H White % (Auto) 6.7 Eos % (Auto) 3.0 Baso % (Auto) 0.6 Lymph # 2.2 White # 0.3 Eos # 0.1 Baso # 0.0 Seg Neutrophils % 35.3 L Seg Neutrophils # 1.5 L Sodium 142 Potassium 3.5 L Chloride 107.1 H Carbon Dioxide 24 Anion Gap 14 BUN 8 Creatinine 0.8 Estimated GFR > 60 BUN/Creatinine Ratio 10 Glucose 106 H POC Glucose 112 H Calcium 9.0 Magnesium Total Bilirubin 0.20 AST 11 ALT 6 L Alkaline Phosphatase 63 Total Protein 5.9 L Albumin 3.4 L Albumin/Globulin Ratio 1.4 Prealbumin Triglycerides 85 Cholesterol 112 LDL Cholesterol Direct 56 HDL Cholesterol 49 Cholesterol/HDL Ratio 2.28 01/27/19 01/27/19 01/27/19 07:57 11:34 16:45 WBC RBC Hgb Hct MCV MCH MCHC RDW Plt Count Lymph % (Auto) White % (Auto) Eos % (Auto) Baso % (Auto) Lymph # White # Eos # Baso # Seg Neutrophils % Seg Neutrophils # Sodium Potassium Chloride Carbon Dioxide Anion Gap BUN Creatinine Estimated GFR BUN/Creatinine Ratio Glucose POC Glucose 105 158 H 97 Calcium Magnesium Total Bilirubin AST ALT Alkaline Phosphatase Total Protein Albumin Albumin/Globulin Ratio Prealbumin Triglycerides Cholesterol LDL Cholesterol Direct HDL Cholesterol Cholesterol/HDL Ratio 01/27/19 01/28/19 01/28/19 22:43 07:42 12:16 WBC RBC Hgb Hct MCV MCH MCHC RDW Plt Count Lymph % (Auto) White % (Auto) Eos % (Auto) Baso % (Auto) Lymph # White # Eos # Baso # Seg Neutrophils % Seg Neutrophils # Sodium Potassium Chloride Carbon Dioxide Anion Gap BUN Creatinine Estimated GFR BUN/Creatinine Ratio Glucose POC Glucose 124 H 112 H 115 H Calcium Magnesium Total Bilirubin AST ALT Alkaline Phosphatase Total Protein Albumin Albumin/Globulin Ratio Prealbumin Triglycerides Cholesterol LDL Cholesterol Direct HDL Cholesterol Cholesterol/HDL Ratio 01/28/19 01/28/19 01/28/19 16:59 18:52 21:42 WBC RBC Hgb Hct MCV MCH MCHC RDW Plt Count Lymph % (Auto) White % (Auto) Eos % (Auto) Baso % (Auto) Lymph # White # Eos # Baso # Seg Neutrophils % Seg Neutrophils # Sodium Potassium Chloride Carbon Dioxide Anion Gap BUN Creatinine Estimated GFR BUN/Creatinine Ratio Glucose POC Glucose 54 L 165 H 92 Calcium Magnesium Total Bilirubin AST ALT Alkaline Phosphatase Total Protein Albumin Albumin/Globulin Ratio Prealbumin Triglycerides Cholesterol LDL Cholesterol Direct HDL Cholesterol Cholesterol/HDL Ratio 01/29/19 01/29/19 07:26 07:44 WBC RBC Hgb Hct MCV MCH MCHC RDW Plt Count Lymph % (Auto) White % (Auto) Eos % (Auto) Baso % (Auto) Lymph # White # Eos # Baso # Seg Neutrophils % Seg Neutrophils # Sodium 143 Potassium 4.1 Chloride 110.0 H Carbon Dioxide 23 Anion Gap 14 BUN 19 H Creatinine 1.0 Estimated GFR > 60 BUN/Creatinine Ratio 19 Glucose 125 H POC Glucose 121 H Calcium 9.1 Magnesium 1.90 Total Bilirubin AST ALT Alkaline Phosphatase Total Protein Albumin Albumin/Globulin Ratio Prealbumin 0.225 Triglycerides Cholesterol LDL Cholesterol Direct HDL Cholesterol Cholesterol/HDL Ratio Assessment and Plan I69.351 CVA with hemiparesis of the right dominant side: Continue secondary stroke prevention. Monitor for post stroke depression and CRPS. Continue therapy in order to improve stroke recovery. Monitor for change in neurologic function or worsening of stroke symptoms. I69.391 Dysphagia: Continue dysphagia diet and advance as safely able. NURSING AIDE monitor and may use FEES and/or MBS to assess for safe diet upgrade. E-stim if needed. MBSS showed aspiration - [facility] [place] Th[facility] I69.322 Dysarthria: Continue NURSING AIDE strategies to improve vocalization and are alternative methods of communication if needed. K59.00 Constipation: Start MiraLAX monitor for improvement. E87.6 Hypokalemia: normalized after replacement, Mg WNL. Z73.6 ADL dysfunction: OT will work on improving ability to perform ADLs (including assistive devices) to increase independence and decrease caregiver burden and improve functional transfers and mobility training. R26.2 Difficulty walking: PT will work on gait training and proper use of assistive devices and advance as appropriate to use of stairs and outside ambulation on uneven surfaces. R26.81 Unsteadiness on feet: PT will work on improving static and dynamic sitting and standing balance as well as proper use of assistive devices to decrease risk of falls. R26.89 Abnormality of gait: PT will work to improve safety and efficiency of gait through neuromotor training and gait training along with instruction on proper use of assistive devices. M62.81 Muscle weakness: PT & OT will work on strengthening exercises to improve functional strength including mixture of closed and open kinetic chain exercises. R53.81 Debility: PT & OT will work on improving overall functional status to improve participation with ADLs, mobility and social involvement. R53.83 Fatigue: PT & OT will work on improving endurance through aerobic exercises and therapeutic activity while monitoring patients tolerance for activity and vital signs as needed. Internal medicine consultation for management of diabetes and hypertension. Orders for medications have been placed and the holds were placed on antihypertensives. Appreciate their assistance DVT ppx: Lovenox Pain: Continue physical modalities in therapy and pain medications as needed to achieve functional pain control. Sleep: Monitor and address as needed. Bowel: Monitor and address as needed. Appetite: Monitor and address as needed. Discharge planning: Pending therapy progress and care plan meeting. Will continue discussion with therapy team, SW, patient and family. Restrictions/ Precautions: Falls, swallow WB status: FWB Functional Hx: ADLs: Independent Cognition: Independent Mobility: No AD Barriers to Discharge: Decreased mobility and ability to perform self care, balance deficits, weakness, dominant hemiparesis, dysphagia and dysarthria Estimated Length of Stay: 14-21 days Discharge Destination: Home with family
[2019-01-29] MEDS: HumaLOG SUB-Q SCH ×5 (09:59→23:39)
[2019-01-29] MEDS: ECOTRIN PO SCH (10:26)
[2019-01-29] MEDS: GLUCOTROL PO SCH (10:26)
[2019-01-29] MEDS: COREG PO SCH ×2 (10:26→22:45)
[2019-01-29] MEDS: NORVASC PO SCH (10:27)
[2019-01-29] MEDS: ZESTRIL PO SCH (10:27)
[2019-01-29] MEDS: LOVENOX SUB-Q SCH (10:28)
[2019-01-29] MEDS: MIRALAX 3350 PO SCH (10:28)
--- NOTE | 2019-01-29 11:49 | IRU Plan of Care ---
Interdisciplinary Plan of Care - [facility] [place] IRU INTERDISCIPLINARY PLAN: [facility] Inpatient Rehab Unit Plan of Care IRU Interdisciplinary Care Plan Start: 01/26/19 20:55 Freq: Admission then PRN Status: Active Protocol: Document 01/29/19 09:19 TH (Rec: 01/29/19 09:24 TH REHAB-DIR) Interdisciplinary Problem List Interdisciplinary Problem List Interdisciplinary Problem List Impaired Eating/Swallowing, Query Text:Answers will Trigger Problems Impaired Bathing/Grooming, and Outcomes on Worklist. Impaired Dressing,Impaired Mobility,Impaired Transfers, Impaired Toileting,Impaired Expression,Impaired Problem Solving,Impaired Skin/Tissue Integrity,Discharge Concerns, Impaired Safety,Medications Education,Diabetes Education IRU Interdisciplinary Care Plan Therapy Services Therapy Services Will Include: Physical Therapy,Occupational Query Text:Patient will be seen for a Therapy,Speech Therapy minimum of 3 hours of daily therapy 5 out of 7 days a week. Therapy intensity may be adjusted within a 7 consecutive day period to effectively serve the individual needs of the patient. Treatment Frequency/Intensity/Duration Treatment Frequency 5 days per week Treatment Intensity 3 hours/day Treatment Duration 14-21 days Problem Area: Eating/Swallowing Eating/Swallowing Outcomes Consume Least Restrictive Diet Eating/Swallowing Interventions Neuromuscular Re-Education, Patient/Caregiver Education Problem Area: Bathing/Grooming Bathing/Grooming Outcomes Improve Worth w/ Grooming,Improve Worth w/ Bathing Bathing/Grooming Interventions ADL Training,Use of Assistive Devices,Therapeutic Exercise, Therapeutic Activity, Neuromuscular Re-Education, Balance Work,Activity Tolerance Work,Patient/ Caregiver Education Problem Area: Dressing Dressing Outcomes Improve Worth w/ UB Dressing,Improve Worth w/ LB Dressing Dressing Interventions ADL Training,Use of Assistive Devices,Neuromuscular Re- Education,Therapeutic Exercise ,Balance Work,Modalities, Patient/Caregiver Education Problem Area: Mobility Mobility Outcomes Improve Worth w/ Bed Mobility,Improve Worth w/ Ambulation,Improve Worth w/ Stairs/Curb, Improve Worth w/ Wheelchair Mobility Interventions Therapeutic Exercise, Neuromuscular Re-Ed.,Activity Tolerance Work,Modalities,Use of Assistive Devices,Patient/ Caregiver Education,Bed Mobility Work,Gait Training, Household Mobility Work,W/C Mobility Work Problem Area: Transfers Transfers Outcomes Improve Worth w/ Toilet Transfers,Improve Worth w/ Tub/Shower Transfers Transfers Interventions Transfer Training,Therapeutic Exercise,Neuromuscular Re- Education,Visual/Perceptual Training,Activity Tolerance Work,Modalities,Use of Assistive Devices,Patient/ Caregiver Education Problem Area: Bowel/Bladder Managment Bowel/Bladder Outcomes Bowel/Bladder Interventions Problem Area: Toileting Toileting Outcomes Improve Worth w/ Toileting Toileting Interventions ADL Training,Balance Work,Use of Assistive Devices,Patient/ Caregiver Education Problem Area: Nutrition Nutrition Outcomes Nutrition Interventions Problem Area: Comprehension Comprehension Outcomes Comprehension Interventions Problem Area: Expression Expression Outcomes Improve Intelligibility Expression Interventions Patient/Caregiver Education Problem Area: Problem Solving Problem Solving Outcomes Improve Problem Solving Problem Solving Interventions Cognitive Training Problem Area: Memory Memory Outcomes Memory Interventions Problem Area: Pain Management Pain Management Outcomes Pain Management Interventions Problem Area: Knowledge Deficits Knowledge Deficits Outcomes Knowledge Deficits Interventions Problem Area: Skin/Tissue Integrity Skin/Tissue Integrity Outcomes Demonstrate Understanding of Pressure Relief Skin/Tissue Integrity Interventions Positioning/Turning Problem Area: Social Interaction Social Interaction Outcomes Social Interaction Interventions Problem Area: Adjustment to Disability Adjustment to Disability Outcomes Adjustment to Disability Interventions Problem Area: Discharge Concerns Discharge Concerns Outcomes Discharge w/ Necessary Equipment,Have Home Health/ Outpatient Services Discharge Concerns Interventions Discharge Planning,Family/ Caregiver Training Problem Area: Community Reintegration Community Reintegration Outcomes Community Reintegration Interventions Problem Area: Home Management Home Management Outcomes Improve Worth w/ Home Management Home Management Interventions Clothing Care,Activity Tolerance Work,House Cleaning, Patient/Caregiver Education Problem Area: Safety Safety Outcomes Provide Safe Environment, Perform Selfcare Safely, Demonstrate Good Safety w/ Transfers/Mobility Safety Interventions Identify Fall Risk,[place] Pt. to Environment,Reduce Environmental Hazards, Implement Mechanical Devices, i.e. Chair Alarm (Post Fall Update) Problem Area: Medication Education Medication Education Outcomes Medication Education Interventions Problem Area: Diabetes Education Diabetes Education Outcomes Demonstrate Knowledge of Resources Availlable in Diabetic Ed. Folder Diabetes Education Interventions Discuss Pathophysiology of Diabetes Problem Area: Oxygenation Oxygenation Outcomes Oxygenation Interventions Problem Area: Cardiovascular Cardiovascular Outcomes Cardiovascular Interventions Physician Only Medical Prognosis and Rehabilitation Potential (Completed by Physician) Good medical prognosis s/p repair of aortic dissection. Rehab potential is good, sternal precautions will limit full use of UE until sternum is healed. Decreased activity tolerance/endurance. Will monitor for cardiac symptoms and utilize rest breaks as needed to maximize participation. This plan of care has been developed based on the findings from the pre- admission assessment, post admission physician evaluation, information gathered from the assessments from all therapy disciplines and other pertinent clinicians. The plan of care has been reviewed and discussed in collaboration with the interdisciplinary team. The plan of care will be reviewed and updated at least weekly.
--- NOTE | 2019-01-29 11:55 | IRU Plan of Care ---
Interdisciplinary Plan of Care - [facility] [place] INTERDISCIPLINARY PLAN: [facility] Inpatient Rehab Unit Plan of Care IRU Interdisciplinary Care Plan Start: 01/26/19 20:55 Freq: Admission then PRN Status: Active Protocol: Document 01/29/19 09:19 TH (Rec: 01/29/19 09:24 TH REHAB-DIR) Interdisciplinary Problem List Interdisciplinary Problem List Interdisciplinary Problem List Impaired Eating/Swallowing, Query Text:Answers will Trigger Problems Impaired Bathing/Grooming, and Outcomes on Worklist. Impaired Dressing,Impaired Mobility,Impaired Transfers, Impaired Toileting,Impaired Expression,Impaired Problem Solving,Impaired Skin/Tissue Integrity,Discharge Concerns, Impaired Safety,Medications Education,Diabetes Education IRU Interdisciplinary Care Plan Therapy Services Therapy Services Will Include: Physical Therapy,Occupational Query Text:Patient will be seen for a Therapy,Speech Therapy minimum of 3 hours of daily therapy 5 out of 7 days a week. Therapy intensity may be adjusted within a 7 consecutive day period to effectively serve the individual needs of the patient. Treatment Frequency/Intensity/Duration Treatment Frequency 5 days per week Treatment Intensity 3 hours/day Treatment Duration 14-21 days Problem Area: Eating/Swallowing Eating/Swallowing Outcomes Consume Least Restrictive Diet Eating/Swallowing Interventions Neuromuscular Re-Education, Patient/Caregiver Education Problem Area: Bathing/Grooming Bathing/Grooming Outcomes Improve Iron w/ Grooming,Improve Iron w/ Bathing Bathing/Grooming Interventions ADL Training,Use of Assistive Devices,Therapeutic Exercise, Therapeutic Activity, Neuromuscular Re-Education, Balance Work,Activity Tolerance Work,Patient/ Caregiver Education Problem Area: Dressing Dressing Outcomes Improve Iron w/ UB Dressing,Improve Iron w/ LB Dressing Dressing Interventions ADL Training,Use of Assistive Devices,Neuromuscular Re- Education,Therapeutic Exercise ,Balance Work,Modalities, Patient/Caregiver Education Problem Area: Mobility Mobility Outcomes Improve Iron w/ Bed Mobility,Improve Iron w/ Ambulation,Improve Iron w/ Stairs/Curb, Improve Iron w/ Wheelchair Mobility Interventions Therapeutic Exercise, Neuromuscular Re-Ed.,Activity Tolerance Work,Modalities,Use of Assistive Devices,Patient/ Caregiver Education,Bed Mobility Work,Gait Training, Household Mobility Work,W/C Mobility Work Problem Area: Transfers Transfers Outcomes Improve Iron w/ Toilet Transfers,Improve Iron w/ Tub/Shower Transfers Transfers Interventions Transfer Training,Therapeutic Exercise,Neuromuscular Re- Education,Visual/Perceptual Training,Activity Tolerance Work,Modalities,Use of Assistive Devices,Patient/ Caregiver Education Problem Area: Bowel/Bladder Managment Bowel/Bladder Outcomes Bowel/Bladder Interventions Problem Area: Toileting Toileting Outcomes Improve Iron w/ Toileting Toileting Interventions ADL Training,Balance Work,Use of Assistive Devices,Patient/ Caregiver Education Problem Area: Nutrition Nutrition Outcomes Nutrition Interventions Problem Area: Comprehension Comprehension Outcomes Comprehension Interventions Problem Area: Expression Expression Outcomes Improve Intelligibility Expression Interventions Patient/Caregiver Education Problem Area: Problem Solving Problem Solving Outcomes Improve Problem Solving Problem Solving Interventions Cognitive Training Problem Area: Memory Memory Outcomes Memory Interventions Problem Area: Pain Management Pain Management Outcomes Pain Management Interventions Problem Area: Knowledge Deficits Knowledge Deficits Outcomes Knowledge Deficits Interventions Problem Area: Skin/Tissue Integrity Skin/Tissue Integrity Outcomes Demonstrate Understanding of Pressure Relief Skin/Tissue Integrity Interventions Positioning/Turning Problem Area: Social Interaction Social Interaction Outcomes Social Interaction Interventions Problem Area: Adjustment to Disability Adjustment to Disability Outcomes Adjustment to Disability Interventions Problem Area: Discharge Concerns Discharge Concerns Outcomes Discharge w/ Necessary Equipment,Have Home Health/ Outpatient Services Discharge Concerns Interventions Discharge Planning,Family/ Caregiver Training Problem Area: Community Reintegration Community Reintegration Outcomes Community Reintegration Interventions Problem Area: Home Management Home Management Outcomes Improve Iron w/ Home Management Home Management Interventions Clothing Care,Activity Tolerance Work,House Cleaning, Patient/Caregiver Education Problem Area: Safety Safety Outcomes Provide Safe Environment, Perform Selfcare Safely, Demonstrate Good Safety w/ Transfers/Mobility Safety Interventions Identify Fall Risk,[place] Pt. to Environment,Reduce Environmental Hazards, Implement Mechanical Devices, i.e. Chair Alarm (Post Fall Update) Problem Area: Medication Education Medication Education Outcomes Medication Education Interventions Problem Area: Diabetes Education Diabetes Education Outcomes Demonstrate Knowledge of Resources Availlable in Diabetic Ed. Folder Diabetes Education Interventions Discuss Pathophysiology of Diabetes Problem Area: Oxygenation Oxygenation Outcomes Oxygenation Interventions Problem Area: Cardiovascular Cardiovascular Outcomes Cardiovascular Interventions Physician Only Medical Prognosis and Rehabilitation Potential (Completed by Physician) Fair medical prognosis, multiple CVAs and not fully compliant with medications. PET SITTER by training. Multiple discussions about compliance. Fair rehab potential, dysarthria and dysphagia will likely be most problematic for her recovery. Taking rest breaks as needed This plan of care has been developed based on the findings from the pre- admission assessment, post admission physician evaluation, information gathered from the assessments from all therapy disciplines and other pertinent clinicians. The plan of care has been reviewed and discussed in collaboration with the interdisciplinary team. The plan of care will be reviewed and updated at least weekly.
--- NOTE | 2019-01-29 15:10 | Progress Note ---
Assessment and Plan Assessment and plan: --Hypertension; well controlled Continue current antihypertensives Amlodipine, carvedilol, Lisinopril, hydralazine and when necessary medications --Type 2 diabetes mellitus; well controlled Continue Accu-Chek sliding scale coverage and ADA diet Glipizide, hemoglobin A1c 9.7, diabetic education if needed --Dyslipidemia; continue statin, low cholesterol diet --Mild/moderate malnutrition hypoalbuminemia; nutrition supplements, Supportive care --History of CVA; with right-sided weakness Not a candidate for TPA or thrombectomy Physical therapy occupational and speech therapy Rehabilitation per protocols --DVT prophylaxis; Lovenox --Full code Continue current management Plan of care reviewed with the patient and her nurse History Interval history: Patient seen and examined medical records reviewed. No events reported by the nursing staff Sitting in the chair comfortably No new complaints Vitals signs reviewed Hospitalist Physical - Constitutional Vitals: Temp Pulse Resp BP Pulse Ox 97.9 F 86 18 110/81 97 01/29/19 08:09 01/29/19 14:07 01/29/19 08:09 01/29/19 14:07 01/29/19 08:09 General appearance: Present: no acute distress, well-nourished - EENT Eyes: Present: PERRL, EOM intact - Neck Neck: Present: supple, normal ROM - Respiratory Respiratory effort: normal Respiratory: bilateral: diminished, negative: rales, rhonchi, wheezing - Cardiovascular Rhythm: regular Heart Sounds: Present: S1 & S2 - Extremities Extremities: no ischemia, No edema - Abdominal General gastrointestinal: soft, non-tender, non-distended, normal bowel sounds - Integumentary Integumentary: Present: clear, warm - Psychiatric Psychiatric: appropriate mood/affect - Neurologic Neurologic: other (dysarthria and residual weakness) Results - Labs CBC & Chem 7: 01/27/19 05:12 01/29/19 07:26 Labs: Laboratory Last Values WBC 4.1 K/mm3 (4.5-11.0) L 01/27/19 05:12 RBC 3.85 M/mm3 (3.65-5.03) 01/27/19 05:12 Hgb 10.6 gm/dl (10.1-14.3) 01/27/19 05:12 Hct 32.5 % (30.3-42.9) 01/27/19 05:12 MCV 84 fl (79-97) 01/27/19 05:12 MCH 28 pg (28-32) 01/27/19 05:12 MCHC 33 % (30-34) 01/27/19 05:12 RDW 14.3 % (13.2-15.2) 01/27/19 05:12 Plt Count 175 K/mm3 (140-440) 01/27/19 05:12 Lymph % (Auto) 54.4 % (13.4-35.0) H 01/27/19 05:12 [place] % (Auto) 6.7 % (0.0-7.3) 01/27/19 05:12 Eos % (Auto) 3.0 % (0.0-4.3) 01/27/19 05:12 Baso % (Auto) 0.6 % (0.0-1.8) 01/27/19 05:12 Lymph # 2.2 K/mm3 (1.2-5.4) 01/27/19 05:12 [place] # 0.3 K/mm3 (0.0-0.8) 01/27/19 05:12 Eos # 0.1 K/mm3 (0.0-0.4) 01/27/19 05:12 Baso # 0.0 K/mm3 (0.0-0.1) 01/27/19 05:12 Seg Neutrophils % 35.3 % (40.0-70.0) L 01/27/19 05:12 Seg Neutrophils # 1.5 K/mm3 (1.8-7.7) L 01/27/19 05:12 Sodium 143 mmol/L (137-145) 01/29/19 07:26 Potassium 4.1 mmol/L (3.6-5.0) 01/29/19 07:26 Chloride 110.0 mmol/L (98-107) H 01/29/19 07:26 Carbon Dioxide 23 mmol/L (22-30) 01/29/19 07:26 Anion Gap 14 mmol/L 01/29/19 07:26 BUN 19 mg/dL (7-17) H 01/29/19 07:26 Creatinine 1.0 mg/dL (0.7-1.2) 01/29/19 07:26 Estimated GFR > 60 ml/min 01/29/19 07:26 BUN/Creatinine Ratio 19 % 01/29/19 07:26 Glucose 125 mg/dL (65-100) H 01/29/19 07:26 POC Glucose 170 (70-105) H 01/29/19 11:23 Calcium 9.1 mg/dL (8.4-10.2) 01/29/19 07:26 Magnesium 1.90 mg/dL (1.7-2.3) 01/29/19 07:26 Total Bilirubin 0.20 mg/dL (0.1-1.2) 01/27/19 05:12 AST 11 units/L (5-40) 01/27/19 05:12 ALT 6 units/L (7-56) L 01/27/19 05:12 Alkaline Phosphatase 63 units/L (35-129) 01/27/19 05:12 Total Protein 5.9 g/dL (6.3-8.2) L 01/27/19 05:12 Albumin 3.4 g/dL (3.9-5) L 01/27/19 05:12 Albumin/Globulin Ratio 1.4 % 01/27/19 05:12 Prealbumin 0.225 g/L (0.200-0.400) 01/29/19 07:26 Triglycerides 85 mg/dL (2-149) 01/27/19 05:12 Cholesterol 112 mg/dL (50-199) 01/27/19 05:12 LDL Cholesterol Direct 56 mg/dL (50-130) 01/27/19 05:12 HDL Cholesterol 49 mg/dL (40-59) 01/27/19 05:12 Cholesterol/HDL Ratio 2.28 % 01/27/19 05:12 Active Medications - Current Medications Current Medications: Generic Name Dose Route Start Last Admin Trade Name Freq PRN Reason Stop Dose Admin Acetaminophen 650 mg 01/26/19 19:12 Tylenol PO Q4H PRN Pain MILD(1-3)/Fever >100.5/ARCHER Amlodipine Besylate 10 mg 01/27/19 08:00 01/29/19 10:27 Norvasc PO 10 mg QDAY BAY Administration Aspirin 325 mg 01/27/19 08:00 01/29/19 10:26 Ecotrin PO 325 mg QDAY BAY Administration Atorvastatin Calcium 40 mg 01/26/19 21:00 01/28/19 23:03 Lipitor PO 40 mg QHS BAY Administration Bisacodyl 10 mg 01/26/19 19:12 Dulcolax OK QDAY PRN Constipation unrelieved by MOM Carvedilol 6.25 mg 01/26/19 22:00 01/29/19 10:26 Coreg PO 6.25 mg BID BAY Administration Dextrose 50 ml 01/26/19 19:12 D50w (25gm) Syringe IV PRN PRN Hypoglycemia Enoxaparin Sodium 40 mg 01/27/19 08:00 01/29/19 10:28 Lovenox SUB-Q 40 mg QDAY BAY Administration Glipizide 10 mg 01/28/19 08:00 01/29/19 10:26 Glucotrol PO 10 mg QDDIAB BAY Administration Hydralazine HCl 50 mg 01/27/19 22:00 01/29/19 14:07 Apresoline PO 25 mg Q8HR BAY Administration Insulin Human Lispro 0 unit 01/26/19 22:00 01/29/19 14:09 Humalog SUB-Q Not Given [facility] Protocol Lisinopril 40 mg 01/27/19 08:00 01/29/19 10:27 Zestril PO 40 mg QDAY BAY Administration Magnesium Hydroxide 30 ml 01/26/19 19:12 Milk Of Magnesia PO Q4H PRN Constipation Polyethylene Glycol 17 gm 01/27/19 08:00 01/29/19 10:28 Miralax 3350 PO 17 gm QDAY BAY Administration Nutrition/Malnutrition Assess - Dietary Evaluation Nutrition/Malnutrition Findings: Nutrition Notes Start: 01/27/19 12:34 Freq: Status: Active Protocol: Document 01/27/19 12:34 RM (Rec: 01/27/19 12:39 RM [id number]) Nutrition Notes Need for Assessment generated from: MD Order Initial or Follow up Assessment Current Diagnosis Diabetes,Hypertension, Hyperlipidemia Other Pertinent Diagnosis Hx multiple CVAs Current Diet Consistent CHO Labs/Tests A1c 5.3 per Hx and physical Pertinent Medications Reviewed Height 5 ft 1 in Weight 52.9 kg [place] Body Weight (kg) 47.72 BMI 22.0 Subjective/Other Information Consulted for DM diet education. Reviewed DM diet education to prevention development of prediabetes. Gave handout. #1 Nutrition Diagnosis Food and nutrition-related knowledge deficit Etiology lack of prior education As Evidenced by Signs and Symptoms no prior knowledge of need for food and nutrition recommendations Nutrition Intervention Teaching Recipient Patient Learning Readiness Good Teaching Methods Discussion,Handout Response to Teaching Verbalize understanding Education Handouts Provided Carbohydrate Counting for People with Diabetes Barriers to Learning No Barriers RD phone number provided Yes Patient aware of follow up options Yes Goal #1 Utilize carbohydrate counting Revisit per MD consult or patient Sign Off request:
[2019-01-30] MEDS: APRESOLINE PO SCH ×2 (06:22→15:40)
[2019-01-30] MEDS: ZESTRIL PO SCH (09:35)
[2019-01-30] MEDS: HumaLOG SUB-Q SCH ×4 (10:05→23:02)
[2019-01-30] MEDS: GLUCOTROL PO SCH ×2 (10:05→11:49)
--- NOTE | 2019-01-30 11:01 | Progress Note ---
Subjective Date of service: 01/30/19 Principal diagnosis: CVA Interval history: 64-year-old female who presented to the ED with stroke symptoms. Stated that she had taken a nap and woke up with right facial droop and dysarthria. She was outside the therapeutic window for TPA and was not a candidate for thrombectomy. She was worked up for CVA and the brain MRI showed small left internal capsule lacunar infarct. Hemoglobin A1c at outside hospital was 5.3. She has a history of previous strokes in the past. She and her son state that she had recovered from previous strokes without major residual deficits. She is right hand dominant. She lives with family in a single story home and was previously independent with ADLs. She states is been several days since her last bowel movement. She's been sleeping poorly but declines assistance with medication. Secondary prevention was discussed with her and her son. Stroke prognosis and anticipated recovery time was also discussed. States she is getting lightheaded at times when standing, BP is trending to the lower side. Would prefer to keep her SBP >120 if possible. GLU has improved but she does have reduced PO intake compared to home due to food preference, consistency and thickeners. May be beneficial to reduce glipizide for now to avoid hypoglycemia. Encouraged to continue PO fluid intake - she is not a fan of thickener. Vital signs within normal limits, will need to avoid hypotension. Patient is participating in therapy and making reasonable progress. Taking rest breaks as needed. +BM. Denies pain, palpitations, dyspnea, cough, N/V or joint pain. Right inattention worse with ambulation. All records, vitals, labs and medications were reviewed. No other issues per patient, nursing or therapy. Objective - Exam Narrative Exam: MUSCULOSKELETAL SPECIALTY EXAM CONSTITUTIONAL: Well developed, well nourished, appropriately groomed. RIGHT hand dominant. RESPIRATORY: Clear to auscultation bilaterally, no increased work of breathing CARDIOVASCULAR: Regular Rate/ Rhythm, no swelling, edema or tenderness in BUE or BLE. All extremities warm. GI: + bowel sounds, soft, NTTP, nondistended. INTEGUMENTARY: Normal, no lesion, rash, masses or bruising noted in extremities. MUSCULOSKELETAL: BUE and BLE normal without defect, crepitus, subluxation, effusion, arthritic changes or TTP. SA EF WE EE FF FA HF KE ADF EHL APF R 4-/5 4-/5 4-/5 4-/5 4-/5 4-/5 4-/5 4-/5 4-/5 4-/5 4-/5 L 5/5 5/5 5/5 5/5 5/5 5 /5 5/5 5/5 5/5 5/5 5/5 ROM full Tone normal NEURO: CN II - XII intact except Right facial droop Sensation intact in all extremities with extinction present on RLE No tremor noted in 4 extremities. Naming and repetition intact. Follows 2 step commands. Dysarthria present Dysphagia present Some right sided inattention when ambulating with contact of reyes. Able to draw a clock with no issue. Continue to push for improvement in scanning with walking. POSTURE and GAIT: Sitting posture good. Balance appears fair. Gait slowed, tends to drift right. PSYCH: Alert, orientated x3, affect appears flat. Insight appears intact. - Constitutional Vitals: Vital Signs - 12hr 01/30/19 01/30/19 01/30/19 00:02 04:31 07:26 Temperature 36.7 C 36.4 C 37.1 C Pulse Rate 59 L 56 L Respiratory 17 17 16 Rate Blood Pressure 135/81 128/72 106/64 O2 Sat by Pulse 100 98 Oximetry 01/30/19 07:30 Temperature Pulse Rate 74 Respiratory Rate Blood Pressure O2 Sat by Pulse Oximetry - Allied health notes Allied health notes reviewed: nursing, PT, ST, OT FIMS assessment as documented by PT/OT/ST: Grooming Patient cleans teeth/dentures: Yes Patient blanco/brushes hair: No Patient washes, rinses and Yes dries face: Patient washes, rinses and Yes dries hands: Patient applies make-up: No Patient performs (no make-up/ 3/4 (75%) shaving): Grooming FIM Score 4. Minimal Assistance (Patient = 75% or more. Needs touching.) Toileting Toileting Device Grab Bar Patient able to: Adjust clothes before Patient able to perform: 2/3 (67%) Toileting FIM Score 3. Moderate Assistance (Patient = 50% or more. Some lifting.) Social interaction/Memory/Problem solving Social Interaction FIM Score 3. Moderate Assistance (Interacts appropriately 50-74%.) Memory FIM Score 3. Moderate Assistance (Recognizes and remembers 50-74%.) Problem Solving FIM Score 3. Moderate Assistance (Solves routine problems 50-74%.) Transfers Mode of Locomotion: Wheelchair Bed/Chair/Wheelchair Transfers 4. Minimal Assistance (Patient = 75% or more. FIM Score Needs touching.) Toilet Transfers FIM Score 4. Minimal Assistance (Patient = 75% or more. Needs touching.) Patient transferred to: Shower Shower Transfers FIM Score 4. Minimal Assistance (Patient = 75% or more. Needs touching.) Locomotion- Stairs Device used on Stairs Handrail/s Number of Stairs Ascended/ 12 Descended Patient used handrail/support: Yes Stairs FIM Score 5. Supervision (12-14 stairs w/ supv. 4-6 stairs independently.) Locomotion- walk/wheelchair Most Frequent Mode of Walking Locomotion: Ambulation Distance 170 Walking FIM Score 4. Minimal Assistance (Patient = 75% or more. Minimum of 150 ft.) Wheelchair Propulsion Distance 150 Wheelchair FIM Score 5. Supervision (Minimum 150 ft. supv./cues or 50 ft. independently.) Eating Eating FIM Score 3. Moderate Assistance (Patient = 50% or more) Dressing-Upper body Patient retrieves clothing No items: Patient applies/removes UE No: n/a prosthesis or orthosis: Upper Body Dressing FIM Score 4. Minimal Assistance (Patient = 75% or more. Needs touching.) Dressing-lower body Patient retrieves clothing No items: Patient applies/removes LE No: n/a prosthesis or orthosis: Lower Body Dressing FIM Score 3. Moderate Assistance (Patient = 50% or more) - Labs CBC & Chem 7: 01/27/19 05:12 01/29/19 07:26 Labs: Laboratory Results - last 72 hr 01/27/19 01/27/19 01/27/19 11:34 16:45 22:43 Sodium Potassium Chloride Carbon Dioxide Anion Gap BUN Creatinine Estimated GFR BUN/Creatinine Ratio Glucose POC Glucose 158 H 97 124 H Calcium Magnesium Prealbumin 01/28/19 01/28/19 01/28/19 07:42 12:16 16:59 Sodium Potassium Chloride Carbon Dioxide Anion Gap BUN Creatinine Estimated GFR BUN/Creatinine Ratio Glucose POC Glucose 112 H 115 H 54 L Calcium Magnesium Prealbumin 04/04/19 04/04/19 04/05/19 18:52 21:42 07:26 Sodium 143 Potassium 4.1 Chloride 110.0 H Carbon Dioxide 23 Anion Gap 14 BUN 19 H Creatinine 1.0 Estimated GFR > 60 BUN/Creatinine Ratio 19 Glucose 125 H POC Glucose 165 H 92 Calcium 9.1 Magnesium 1.90 Prealbumin 0.225 01/29/19 01/29/19 01/29/19 07:44 11:23 16:50 Sodium Potassium Chloride Carbon Dioxide Anion Gap BUN Creatinine Estimated GFR BUN/Creatinine Ratio Glucose POC Glucose 121 H 170 H 63 L Calcium Magnesium Prealbumin 01/29/19 01/30/19 22:05 07:30 Sodium Potassium Chloride Carbon Dioxide Anion Gap BUN Creatinine Estimated GFR BUN/Creatinine Ratio Glucose POC Glucose 83 85 Calcium Magnesium Prealbumin Assessment and Plan I69.351 CVA with hemiparesis of the right dominant side: Continue secondary stroke prevention. Monitor for post stroke depression and CRPS. Continue therapy in order to improve stroke recovery. Monitor for change in neurologic function or worsening of stroke symptoms. I69.391 Dysphagia: Continue dysphagia diet and advance as safely able. RECORDER GRAVITY PROSPECTING monitor and may use FEES and/or MBS to assess for safe diet upgrade. E-stim if needed. MBSS showed aspiration - will remain on Mech Soft / [place] Thick I69.322 Dysarthria: Continue RECORDER GRAVITY PROSPECTING strategies to improve vocalization and are alternative methods of communication if needed. K59.00 Constipation: Start MiraLAX monitor for improvement. E87.6 Hypokalemia: normalized after replacement, Mg WNL. Z73.6 ADL dysfunction: OT will work on improving ability to perform ADLs (including assistive devices) to increase independence and decrease caregiver burden and improve functional transfers and mobility training. R26.2 Difficulty walking: PT will work on gait training and proper use of assistive devices and advance as appropriate to use of stairs and outside ambulation on uneven surfaces. R26.81 Unsteadiness on feet: PT will work on improving static and dynamic si tting and standing balance as well as proper use of assistive devices to decrease risk of falls. R26.89 Abnormality of gait: PT will work to improve safety and efficiency of gait through neuromotor training and gait training along with instruction on proper use of assistive devices. M62.81 Muscle weakness: PT & OT will work on strengthening exercises to improve functional strength including mixture of closed and open kinetic chain exercises. R53.81 Debility: PT & OT will work on improving overall functional status to improve participation with ADLs, mobility and social involvement. R53.83 Fatigue: PT & OT will work on improving endurance through aerobic exercises and therapeutic activity while monitoring patients tolerance for activity and vital signs as needed. Internal medicine consultation for management of diabetes and hypertension. Appreciate their assistance. BP trending to low side, patient states she has felt lightheaded recently with standing, consider reduction of hydralazine. GLU on lower side, patient with reduced intake due to food preference and consistency, consider reduction of glipizide. DVT ppx: Lovenox Pain: Continue physical modalities in therapy and pain medications as needed to achieve functional pain control. Sleep: Monitor and address as needed. Bowel: Monitor and address as needed. Appetite: Monitor and address as needed. Discharge planning: Pending therapy progress and care plan meeting. Will continue discussion with therapy team, SW, patient and family. Restrictions/ Precautions: Falls, swallow WB status: FWB Functional Hx: ADLs: Independent Cognition: Independent Mobility: No AD Barriers to Discharge: Decreased mobility and ability to perform self care, balance deficits, weakness, dominant hemiparesis, dysphagia and dysarthria Estimated Length of Stay: 14-21 days Discharge Destination: Home with family
[2019-01-30] MEDS: LOVENOX SUB-Q SCH (11:48)
[2019-01-30] MEDS: ECOTRIN PO SCH (11:49)
[2019-01-30] MEDS: COREG PO SCH ×2 (11:49→21:39)
[2019-01-30] MEDS: MIRALAX 3350 PO SCH (11:50)
--- NOTE | 2019-01-30 14:04 | Progress Note ---
Assessment and Plan Assessment and plan: --Hypertension; well controlled Blood pressures in the lower range, did not need all the medications today DC lisinopril, hydralazine, amlodipine, continue carvedilol When necessary hydralazine, closely monitor blood pressures Adjust medications as needed --Type 2 diabetes mellitus; well controlled Continue Accu-Chek sliding scale coverage and ADA diet Glipizide, hemoglobin A1c 9.7, diabetic education if needed --Dyslipidemia; continue statin, low cholesterol diet --Mild/moderate malnutrition hypoalbuminemia; nutrition supplements, Supportive care --History of CVA; with right-sided weakness/dysarthria Not a candidate for TPA or thrombectomy Physical therapy occupational and speech therapy Rehabilitation per protocols --DVT prophylaxis; Lovenox --Full code Plan of care reviewed with the patient and her nurse History Interval history: Patient seen and examined medical records reviewed Patient feels better, speech slowly improving Patient's blood pressures are in the lower range We will adjust antihypertensives Patient is alert and awake responding to simple questions appropriately Not in acute distress, vital signs reviewed Hospitalist Physical - Constitutional Vitals: Temp Pulse Resp BP Pulse Ox 97.6 F 75 18 113/76 97 01/30/19 11:30 01/30/19 11:49 01/30/19 11:30 01/30/19 11:49 01/30/19 11:30 General appearance: Present: no acute distress, well-nourished - EENT Eyes: Present: PERRL, EOM intact - Neck Neck: Present: supple, rigidity - Respiratory Respiratory effort: normal Respiratory: bilateral: diminished, negative: rales, rhonchi, wheezing - Cardiovascular Rhythm: regular Heart Sounds: Present: S1 & S2 - Extremities Extremities: no ischemia, No edema - Abdominal General gastrointestinal: soft, non-tender, non-distended, normal bowel sounds - Integumentary Integumentary: Present: clear, warm - Psychiatric Psychiatric: appropriate mood/affect, cooperative - Neurologic Neurologic: other (CVA with residual weakness, dysarthria) Results - Labs CBC & Chem 7: 01/27/19 05:12 01/29/19 07:26 Labs: Laboratory Last Values WBC 4.1 K/mm3 (4.5-11.0) L 01/27/19 05:12 RBC 3.85 M/mm3 (3.65-5.03) 04/03/19 05:12 Hgb 10.6 gm/dl (10.1-14.3) 01/27/19 05:12 Hct 32.5 % (30.3-42.9) 01/27/19 05:12 MCV 84 fl (79-97) 01/27/19 05:12 MCH 28 pg (28-32) 01/27/19 05:12 MCHC 33 % (30-34) 01/27/19 05:12 RDW 14.3 % (13.2-15.2) 01/27/19 05:12 Plt Count 175 K/mm3 (140-440) 01/27/19 05:12 Lymph % (Auto) 54.4 % (13.4-35.0) H 01/27/19 05:12 [place]ron % (Auto) 6.7 % (0.0-7.3) 01/27/19 05:12 Eos % (Auto) 3.0 % (0.0-4.3) 01/27/19 05:12 Baso % (Auto) 0.6 % (0.0-1.8) 01/27/19 05:12 Lymph # 2.2 K/mm3 (1.2-5.4) 01/27/19 05:12 Barron # 0.3 K/mm3 (0.0-0.8) 01/27/19 05:12 Eos # 0.1 K/mm3 (0.0-0.4) 01/27/19 05:12 Baso # 0.0 K/mm3 (0.0-0.1) 01/27/19 05:12 Seg Neutrophils % 35.3 % (40.0-70.0) L 01/27/19 05:12 Seg Neutrophils # 1.5 K/mm3 (1.8-7.7) L 01/27/19 05:12 Sodium 143 mmol/L (137-145) 01/29/19 07:26 Potassium 4.1 mmol/L (3.6-5.0) 01/29/19 07:26 Chloride 110.0 mmol/L (98-107) H 01/29/19 07:26 Carbon Dioxide 23 mmol/L (22-30) 01/29/19 07:26 Anion Gap 14 mmol/L 01/29/19 07:26 BUN 19 mg/dL (7-17) H 01/29/19 07:26 Creatinine 1.0 mg/dL (0.7-1.2) 01/29/19 07:26 Estimated GFR > 60 ml/min 01/29/19 07:26 BUN/Creatinine Ratio 19 % 01/29/19 07:26 Glucose 125 mg/dL (65-100) H 01/29/19 07:26 POC Glucose 220 (70-105) H 01/30/19 11:30 Calcium 9.1 mg/dL (8.4-10.2) 01/29/19 07:26 Magnesium 1.90 mg/dL (1.7-2.3) 01/29/19 07:26 Total Bilirubin 0.20 mg/dL (0.1-1.2) 01/27/19 05:12 AST 11 units/L (5-40) 01/27/19 05:12 ALT 6 units/L (7-56) L 01/27/19 05:12 Alkaline Phosphatase 63 units/L (35-129) 01/27/19 05:12 Total Protein 5.9 g/dL (6.3-8.2) L 01/27/19 05:12 Albumin 3.4 g/dL (3.9-5) L 01/27/19 05:12 Albumin/Globulin Ratio 1.4 % 01/27/19 05:12 Prealbumin 0.225 g/L (0.200-0.400) 01/29/19 07:26 Triglycerides 85 mg/dL (2-149) 01/27/19 05:12 Cholesterol 112 mg/dL (50-199) 01/27/19 05:12 LDL Cholesterol Direct 56 mg/dL (50-130) 01/27/19 05:12 HDL Cholesterol 49 mg/dL (40-59) 01/27/19 05:12 Cholesterol/HDL Ratio 2.28 % 01/27/19 05:12 Active Medications - Current Medications Current Medications: Generic Name Dose Route Start Last Admin Trade Name Freq PRN Reason Stop Dose Admin Acetaminophen 650 mg 01/26/19 19:12 Tylenol PO Q4H PRN Pain MILD(1-3)/Fever >100.5/ARCHER Amlodipine Besylate 10 mg 01/27/19 08:00 01/29/19 10:27 Norvasc PO 10 mg QDAY BAY Administration Aspirin 325 mg 01/27/19 08:00 01/30/19 11:49 Ecotrin PO 325 mg QDAY BAY Administration Atorvastatin Calcium 40 mg 01/26/19 21:00 01/29/19 22:45 Lipitor PO 40 mg QHS BAY Administration Bisacodyl 10 mg 01/26/19 19:12 Dulcolax AR QDAY PRN Constipation unrelieved by MOM Carvedilol 6.25 mg 01/26/19 22:00 01/30/19 11:49 Coreg PO 6.25 mg BID BAY Administration Dextrose 50 ml 01/26/19 19:12 D50w (25gm) Syringe IV PRN PRN Hypoglycemia Enoxaparin Sodium 40 mg 01/27/19 08:00 01/30/19 11:48 Lovenox SUB-Q 40 mg QDAY BAY Administration Glipizide 10 mg 01/28/19 08:00 01/30/19 11:49 Glucotrol PO 10 mg QDDIAB BAY Administration Hydralazine HCl 50 mg 01/27/19 22:00 01/30/19 06:22 Apresoline PO 50 mg Q8HR BAY Administration Insulin Human Lispro 0 unit 01/26/19 22:00 01/30/19 12:41 Humalog SUB-Q Not Given [facility] Protocol Lisinopril 40 mg 01/27/19 08:00 01/29/19 10:27 Zestril PO 40 mg QDAY BAY Administration Magnesium Hydroxide 30 ml 01/26/19 19:12 Milk Of Magnesia PO Q4H PRN Constipation Polyethylene Glycol 17 gm 01/27/19 08:00 01/30/19 11:50 Miralax 3350 PO Not Given QDAY BAY Nutrition/Malnutrition Assess - Dietary Evaluation Nutrition/Malnutrition Findings: Nutrition Notes Start: 01/27/19 12:34 Freq: Status: Active Protocol: Document 01/27/19 12:34 RM (Rec: 01/27/19 12:39 RM [id number]) Nutrition Notes Need for Assessment generated from: MD Order Initial or Follow up Assessment Current Diagnosis Diabetes,Hypertension, Hyperlipidemia Other Pertinent Diagnosis Hx multiple CVAs Current Diet Consistent CHO Labs/Tests A1c 5.3 per Hx and physical Pertinent Medications Reviewed Height 5 ft 1 in Weight 52.9 kg [place] Body Weight (kg) 47.72 BMI 22.0 Subjective/Other Information Consulted for DM diet education. Reviewed DM diet education to prevention development of prediabetes. Gave handout. #1 Nutrition Diagnosis Food and nutrition-related knowledge deficit Etiology lack of prior education As Evidenced by Signs and Symptoms no prior knowledge of need for food and nutrition recommendations Nutrition Intervention Teaching Recipient Patient Learning Readiness Good Teaching Methods Discussion,Handout Response to Teaching Verbalize understanding Education Handouts Provided Carbohydrate Counting for People with Diabetes Barriers to Learning No Barriers RD phone number provided Yes Patient aware of follow up options Yes Goal #1 Utilize carbohydrate counting Revisit per MD consult or patient Sign Off request:
[2019-01-30] MEDS: NORVASC PO SCH (15:33)
[2019-01-31] MEDS: HumaLOG SUB-Q SCH ×4 (07:00→22:46)
[2019-01-31] MEDS: COREG PO SCH ×2 (08:10→22:41)
[2019-01-31] MEDS: LOVENOX SUB-Q SCH (08:10)
[2019-01-31] MEDS: GLUCOTROL PO SCH ×2 (08:10→16:30)
[2019-01-31] MEDS: MIRALAX 3350 PO SCH (08:35)
[2019-01-31] MEDS: ECOTRIN PO SCH (08:35)
--- NOTE | 2019-01-31 11:07 | Progress Note ---
Subjective Date of service: 01/31/19 Principal diagnosis: CVA Interval history: 64-year-old female who presented to the ED with stroke symptoms. Stated that she had taken a nap and woke up with right facial droop and dysarthria. She was outside the therapeutic window for TPA and was not a candidate for thrombectomy. She was worked up for CVA and the brain MRI showed small left internal capsule lacunar infarct. Hemoglobin A1c at outside hospital was 5.3. She has a history of previous strokes in the past. She and her son state that she had recovered from previous strokes without major residual deficits. She is right hand dominant. She lives with family in a single story home and was previously independent with ADLs. She states is been several days since her last bowel movement. She's been sleeping poorly but declines assistance with medication. Secondary prevention was discussed with her and her son. Stroke prognosis and anticipated recovery time was also discussed. States lightheadedness when standing has improved, BP is improved. GLU has improved but she does have reduced PO intake compared to home due to food preference, consistency and thickeners. May be beneficial to reduce glipizide for now to avoid hypoglycemia. Most recent A1c at OSH was 5.3. Encouraged to continue PO fluid intake. Vital signs within normal limits. Patient is participating in therapy and making reasonable progress. Taking rest breaks as needed. +BM. Denies pain, palpitations, dyspnea, cough, N/V or joint pain. Right inattention worse with ambulation but clock drawing is actu ally pretty good. Discussed use of walker vs furniture walking for safety purposes. All records, vitals, labs and medications were reviewed. No other issues per patient, nursing or therapy. Objective - Exam Narrative Exam: MUSCULOSKELETAL SPECIALTY EXAM CONSTITUTIONAL: Well developed, well nourished, appropriately groomed. RIGHT hand dominant. RESPIRATORY: Clear to auscultation bilaterally, no increased work of breathing CARDIOVASCULAR: Regular Rate/ Rhythm, no swelling, edema or tenderness in BUE or BLE. All extremities warm. GI: + bowel sounds, soft, NTTP, nondistended. INTEGUMENTARY: Normal, no lesion, rash, masses or bruising noted in extremities. MUSCULOSKELETAL: BUE and BLE normal without defect, crepitus, subluxation, effusion, arthritic changes or TTP. SA EF WE EE FF FA HF KE ADF EHL APF R 4-/5 4-/5 4-/5 4-/5 4-/5 4-/5 4-/5 4-/5 4-/5 4-/5 4-/5 L 5/5 5/5 5/5 5/5 5/5 5 /5 5/5 5/5 5/5 5/5 5/5 ROM full Tone normal NEURO: CN II - XII intact except Right facial droop Sensation intact in all extremities with extinction present on RLE No tremor noted in 4 extremities. Naming and repetition intact. Follows 2 step commands. Dysarthria present Dysphagia present Some right sided inattention when ambulating with contact of reyes. Able to draw a clock with no issue. Continue to push for improvement in scanning with walking. POSTURE and GAIT: Sitting posture good. Balance appears fair. Gait slowed, tends to drift right. PSYCH: Alert, orientated x3, affect appears flat. Insight appears intact. - Constitutional Vitals: Vital Signs - 12hr 01/31/19 07:52 Temperature 36.7 C Pulse Rate 77 Respiratory 18 Rate Blood Pressure 141/85 O2 Sat by Pulse 99 Oximetry - Allied health notes Allied health notes reviewed: nursing, PT, ST FIMS assessment as documented by PT/OT/ST: Grooming Patient cleans teeth/dentures: Yes Patient blanco/brushes hair: Yes Patient washes, rinses and Yes dries face: Patient washes, rinses and Yes dries hands: Patient shaves: No Patient applies make-up: No Patient performs (no make-up/ 3/4 (75%) shaving): Grooming FIM Score 5. Supervision (Mcnabb applies toothpaste or opens containers.) Toileting Toileting Device Grab Bar Patient able to: Adjust clothes before Patient able to perform: 2/3 (67%) Toileting FIM Score 3. Moderate Assistance (Patient = 50% or more. Some lifting.) Social interaction/Memory/Problem solving Social Interaction FIM Score 6. Mod. Semora (Mostly appropriate. May need meds. No supv.) Memory FIM Score 4. Minimal Assistance (Recognizes and remembers 75-90%.) Problem Solving FIM Score 4. Minimal Assistance (Solves routine problems 75-90%.) Transfers Mode of Locomotion: Wheelchair Bed/Chair/Wheelchair Transfers 4. Minimal Assistance (Patient = 75% or more. FIM Score Needs touching.) Toilet Transfers FIM Score 4. Minimal Assistance (Patient = 75% or more. Needs touching.) Patient transferred to: Shower Shower Transfers FIM Score 4. Minimal Assistance (Patient = 75% or more. Needs touching.) Locomotion- Stairs Device used on Stairs Handrail/s Number of Stairs Ascended/ 12 Descended Patient used handrail/support: Yes Stairs FIM Score 5. Supervision (12-14 stairs w/ supv. 4-6 stairs independently.) Locomotion- walk/wheelchair Most Frequent Mode of Wheelchair Locomotion: Ambulation Distance 155 Walking FIM Score 4. Minimal Assistance (Patient = 75% or more. Minimum of 150 ft.) Wheelchair Propulsion Distance 150 Wheelchair FIM Score 5. Supervision (Minimum 150 ft. supv./cues or 50 ft. independently.) Eating Eating FIM Score 4. Minimal Assistance (Patient = 75% or more) Dressing-Upper body Patient retrieves clothing No items: Patient applies/removes UE No: n/a prosthesis or orthosis: Upper Body Dressing FIM Score 5. Supv./Set-Up (Mcnabb sets out clothes or applies pros./orth.) Dressing-lower body Patient retrieves clothing No items: Patient applies/removes LE No: n/a prosthesis or orthosis: Lower Body Dressing FIM Score 5. Supv./Set-Up (Mcnabb sets out clothes or applies pros./orth.) - Labs CBC & Chem 7: 01/27/19 05:12 01/29/19 07:26 Labs: Laboratory Results - last 72 hr 01/28/19 01/28/19 01/28/19 12:16 16:59 18:52 Sodium Potassium Chloride Carbon Dioxide Anion Gap BUN Creatinine Estimated GFR BUN/Creatinine Ratio Glucose POC Glucose 115 H 54 L 165 H Calcium Magnesium Prealbumin 01/28/19 01/29/19 01/29/19 21:42 07:26 07:44 Sodium 143 Potassium 4.1 Chloride 110.0 H Carbon Dioxide 23 Anion Gap 14 BUN 19 H Creatinine 1.0 Estimated GFR > 60 BUN/Creatinine Ratio 19 Glucose 125 H POC Glucose 92 121 H Calcium 9.1 Magnesium 1.90 Prealbumin 0.225 01/29/19 01/29/19 01/29/19 11:23 16:50 22:05 Sodium Potassium Chloride Carbon Dioxide Anion Gap BUN Creatinine Estimated GFR BUN/Creatinine Ratio Glucose POC Glucose 170 H 63 L 83 Calcium Magnesium Prealbumin 01/30/19 01/30/19 01/30/19 07:30 11:30 16:24 Sodium Potassium Chloride Carbon Dioxide Anion Gap BUN Creatinine Estimated GFR BUN/Creatinine Ratio Glucose POC Glucose 85 220 H 128 H Calcium Magnesium Prealbumin 01/31/19 07:55 Sodium Potassium Chloride Carbon Dioxide Anion Gap BUN Creatinine Estimated GFR BUN/Creatinine Ratio Glucose POC Glucose 97 Calcium Magnesium Prealbumin Assessment and Plan I69.351 CVA with hemiparesis of the right dominant side: Continue secondary stroke prevention. Monitor for post stroke depression and CRPS. Continue therapy in order to improve stroke recovery. Monitor for change in neurologic function or worsening of stroke symptoms. I69.391 Dysphagia: Continue dysphagia diet and advance as safely able. CLAMP REMOVER monitor and may use FEES and/or MBS to assess for safe diet upgrade. E-stim if needed. MBSS showed aspiration [facility] [place] Thick I69.322 Dysarthria: Continue CLAMP REMOVER strategies to improve vocalization and are alternative methods of communication if needed. K59.00 Constipation: Start MiraLAX monitor for improvement. Z73.6 ADL dysfunction: OT will work on improving ability to perform ADLs (including assistive devices) to increase independence and decrease caregiver burden and improve functional transfers and mobility training. R26.2 Difficulty walking: PT will work on gait training and proper use of assistive devices and advance as appropriate to use of stairs and outside ambulation on uneven surfaces. R26.81 Unsteadiness on feet: PT will work on improving static and dynamic sitting and standing balance as well as proper use of assistive devices to decrease risk of falls. R26.89 Abnormality of gait: PT will work to improve safety and efficiency of gait through neuromotor training and gait training along with instruction on proper use of assistive devices. M62.81 Muscle weakness: PT & OT will work on strengthening exercises to improve functional strength including mixture of closed and open kinetic chain exercises. R53.81 Debility: PT & OT will work on improving overall functional status to improve participation with ADLs, mobility and social involvement. R53.83 Fatigue: PT & OT will work on improving endurance through aerobic exercises and therapeutic activity while monitoring patients tolerance for activity and vital signs as needed. Internal medicine consultation for management of diabetes and hypertension. Appreciate their assistance. BP trending to low side, patient states she has felt lightheaded recently with standing, consider reduction of hydralazine. GLU on lower side, patient with reduced intake due to food preference and consistency, consider reduction of glipizide. DVT ppx: Lovenox Pain: Continue physical modalities in therapy and pain medications as needed to achieve functional pain control. Sleep: Monitor and address as needed. Bowel: Monitor and address as needed. Appetite: Monitor and address as needed. Discharge planning: Pending therapy progress and care plan meeting. Will continue discussion with therapy team, SW, patient and family. Restrictions/ Precautions: Falls, swallow WB status: FWB Functional Hx: ADLs: Independent Cognition: Independent Mobility: No AD Barriers to Discharge: Decreased mobility and ability to perform self care, balance deficits, weakness, dominant hemiparesis, dysphagia and dysarthria Estimated Length of Stay: 14-21 days Discharge Destination: Home with family
--- NOTE | 2019-01-31 11:22 | Progress Note ---
Assessment and Plan Assessment and plan: --Hypertension; well controlled Continue current antihypertensives, when necessary medications --Type 2 diabetes mellitus; well controlled Accu-Chek SSC and ADA diet Glipizide, hemoglobin A1c 9.7, diabetic education --Dyslipidemia; on statin, low cholesterol diet --Mild/moderate malnutrition hypoalbuminemia; nutrition supplements --History of CVA; with right-sided weakness/dysarthria Not a candidate for TPA or thrombectomy PT,OT,ST and rehab --DVT prophylaxis; Lovenox --Full code Plan of care reviewed with the patient and her nurse Also discussed with the family member at the bedside History Interval history: Patient seen and examined The patient is comfortable in no new complaints Family member at the bedside Vital signs stable Hospitalist Physical - Constitutional Vitals: Temp Pulse Resp BP Pulse Ox 98.0 F 77 18 141/85 99 01/31/19 07:52 01/31/19 07:52 01/31/19 07:52 01/31/19 07:52 01/31/19 07:52 General appearance: Present: no acute distress, well-nourished - EENT Eyes: Present: PERRL, EOM intact - Neck Neck: Present: supple, normal ROM - Respiratory Respiratory effort: normal Respiratory: bilateral: diminished, negative: rales, rhonchi, wheezing - Cardiovascular Rhythm: regular Heart Sounds: Present: S1 & S2 - Extremities Extremities: no ischemia, No edema - Abdominal General gastrointestinal: soft, non-tender, non-distended, normal bowel sounds - Integumentary Integumentary: Present: clear, warm - Psychiatric Psychiatric: appropriate mood/affect, cooperative - Neurologic Neurologic: CNII-XII intact, moves all extremities Results - Labs CBC & Chem 7: 01/27/19 05:12 01/29/19 07:26 Labs: Laboratory Last Values WBC 4.1 K/mm3 (4.5-11.0) L 01/27/19 05:12 RBC 3.85 M/mm3 (3.65-5.03) 01/27/19 05:12 Hgb 10.6 gm/dl (10.1-14.3) 01/27/19 05:12 Hct 32.5 % (30.3-42.9) 01/27/19 05:12 MCV 84 fl (79-97) 01/27/19 05:12 MCH 28 pg (28-32) 01/27/19 05:12 MCHC 33 % (30-34) 01/27/19 05:12 RDW 14.3 % (13.2-15.2) 01/27/19 05:12 Plt Count 175 K/mm3 (140-440) 01/27/19 05:12 Lymph % (Auto) 54.4 % (13.4-35.0) H 01/27/19 05:12 Hunt % (Auto) 6.7 % (0.0-7.3) 01/27/19 05:12 Eos % (Auto) 3.0 % (0.0-4.3) 01/27/19 05:12 Baso % (Auto) 0.6 % (0.0-1.8) 01/27/19 05:12 Lymph # 2.2 K/mm3 (1.2-5.4) 01/27/19 05:12 Hunt # 0.3 K/mm3 (0.0-0.8) 01/27/19 05:12 Eos # 0.1 K/mm3 (0.0-0.4) 01/27/19 05:12 Baso # 0.0 K/mm3 (0.0-0.1) 01/27/19 05:12 Seg Neutrophils % 35.3 % (40.0-70.0) L 01/27/19 05:12 Seg Neutrophils # 1.5 K/mm3 (1.8-7.7) L 01/27/19 05:12 Sodium 143 mmol/L (137-145) 01/29/19 07:26 Potassium 4.1 mmol/L (3.6-5.0) 01/29/19 07:26 Chloride 110.0 mmol/L (98-107) H 01/29/19 07:26 Carbon Dioxide 23 mmol/L (22-30) 01/29/19 07:26 Anion Gap 14 mmol/L 01/29/19 07:26 BUN 19 mg/dL (7-17) H 01/29/19 07:26 Creatinine 1.0 mg/dL (0.7-1.2) 01/29/19 07:26 Estimated GFR > 60 ml/min 01/29/19 07:26 BUN/Creatinine Ratio 19 % 01/29/19 07:26 Glucose 125 mg/dL (65-100) H 01/29/19 07:26 POC Glucose 97 (70-105) 01/31/19 07:55 Calcium 9.1 mg/dL (8.4-10.2) 01/29/19 07:26 Magnesium 1.90 mg/dL (1.7-2.3) 01/29/19 07:26 Total Bilirubin 0.20 mg/dL (0.1-1.2) 01/27/19 05:12 AST 11 units/L (5-40) 01/27/19 05:12 ALT 6 units/L (7-56) L 01/27/19 05:12 Alkaline Phosphatase 63 units/L (35-129) 01/27/19 05:12 Total Protein 5.9 g/dL (6.3-8.2) L 01/27/19 05:12 Albumin 3.4 g/dL (3.9-5) L 01/27/19 05:12 Albumin/Globulin Ratio 1.4 % 01/27/19 05:12 Prealbumin 0.225 g/L (0.200-0.400) 01/29/19 07:26 Triglycerides 85 mg/dL (2-149) 01/27/19 05:12 Cholesterol 112 mg/dL (50-199) 01/27/19 05:12 LDL Cholesterol Direct 56 mg/dL (50-130) 01/27/19 05:12 HDL Cholesterol 49 mg/dL (40-59) 01/27/19 05:12 Cholesterol/HDL Ratio 2.28 % 01/27/19 05:12 Active Medications - Current Medications Current Medications: Generic Name Dose Route Start Last Admin Trade Name Freq PRN Reason Stop Dose Admin Acetaminophen 650 mg 01/26/19 19:12 Tylenol PO Q4H PRN Pain MILD(1-3)/Fever >100.5/ARCHER Aspirin 325 mg 01/27/19 08:00 01/30/19 11:49 Ecotrin PO 325 mg QDAY BAY Administration Atorvastatin Calcium 40 mg 01/26/19 21:00 01/30/19 21:39 Lipitor PO 40 mg QHS BAY Administration Bisacodyl 10 mg 01/26/19 19:12 Dulcolax NV QDAY PRN Constipation unrelieved by MOM Carvedilol 6.25 mg 01/26/19 22:00 01/31/19 08:10 Coreg PO 6.25 mg BID BAY Administration Dextrose 50 ml 01/26/19 19:12 D50w (25gm) Syringe IV PRN PRN Hypoglycemia Enoxaparin Sodium 40 mg 01/27/19 08:00 01/31/19 08:10 Lovenox SUB-Q 40 mg QDAY BAY Administration Glipizide 10 mg 01/28/19 08:00 01/31/19 08:10 Glucotrol PO 10 mg QDDIAB BAY Administration Insulin Human Lispro 0 unit 01/26/19 22:00 01/30/19 23:02 Humalog SUB-Q Not Given ACHS [facility] Protocol Magnesium Hydroxide 30 ml 01/26/19 19:12 Milk Of Magnesia PO Q4H PRN Constipation Polyethylene Glycol 17 gm 01/27/19 08:00 01/30/19 11:50 Miralax 3350 PO Not Given QDAY BAY Nutrition/Malnutrition Assess - Dietary Evaluation Nutrition/Malnutrition Findings: Nutrition Notes Start: 01/27/19 12:34 Freq: Status: Active Protocol: Document 01/27/19 12:34 RM (Rec: 01/27/19 12:39 RM [email or web address]) Nutrition Notes Need for Assessment generated from: MD Order Initial or Follow up Assessment Current Diagnosis Diabetes,Hypertension, Hyperlipidemia Other Pertinent Diagnosis Hx multiple CVAs Current Diet Consistent CHO Labs/Tests A1c 5.3 per Hx and physical Pertinent Medications Reviewed Height 5 ft 1 in Weight 52.9 kg [place] Body Weight (kg) 47.72 BMI 22.0 Subjective/Other Information Consulted for DM diet education. Reviewed DM diet education to prevention development of prediabetes. Gave handout. #1 Nutrition Diagnosis Food and nutrition-related knowledge deficit Etiology lack of prior education As Evidenced by Signs and Symptoms no prior knowledge of need for food and nutrition recommendations Nutrition Intervention Teaching Recipient Patient Learning Readiness Good Teaching Methods Discussion,Handout Response to Teaching Verbalize understanding Education Handouts Provided Carbohydrate Counting for People with Diabetes Barriers to Learning No Barriers RD phone number provided Yes Patient aware of follow up options Yes Goal #1 Utilize carbohydrate counting Revisit per MD consult or patient Sign Off request:
[2019-02-01] MEDS: HumaLOG SUB-Q SCH ×4 (07:35→22:10)
[2019-02-01] MEDS: ECOTRIN PO SCH (08:11)
[2019-02-01] MEDS: GLUCOTROL PO SCH (08:12)
[2019-02-01] MEDS: COREG PO SCH ×2 (08:12→21:50)
--- NOTE | 2019-02-01 15:12 | Progress Note ---
Subjective Date of service: 02/01/19 Principal diagnosis: CVA Interval history: 64-year-old female who presented to the ED with stroke symptoms. Stated that she had taken a nap and woke up with right facial droop and dysarthria. She was outside the therapeutic window for TPA and was not a candidate for thrombectomy. She was worked up for CVA and the brain MRI showed small left internal capsule lacunar infarct. Hemoglobin A1c at outside hospital was 5.3. She has a history of previous strokes in the past. She and her son state that she had recovered from previous strokes without major residual deficits. She is right hand dominant. She lives with family in a single story home and was previously independent with ADLs. She states is been several days since her last bowel movement. She's been sleeping poorly but declines assistance with medication. Secondary prevention was discussed with her and her son. Stroke prognosis and anticipated recovery time was also discussed. GLU has improved but she does have reduced PO intake compared to home due to food preference, consistency and thickeners. Glipizide reduced, monitor GLU for improvement. Most recent A1c at OSH was 5.3. Encouraged to continue PO fluid intake. Vital signs within normal limits. Patient is participating in therapy and making reasonable progress. Taking rest breaks as needed. +BM. Denies pain, palpitations, dyspnea, cough, N/V or joint pain. Right inattention worse with ambulation. E-Stim being used to improve swallowing ability. Constipated - will try suppository tonight. All records, vitals, labs and medications were reviewed. No other issues per patient, nursing or therapy. Objective - Exam Narrative Exam: MUSCULOSKELETAL SPECIALTY EXAM CONSTITUTIONAL: Well developed, well nourished, appropriately groomed. RIGHT hand dominant. RESPIRATORY: Clear to auscultation bilaterally, no increased work of breathing CARDIOVASCULAR: Regular Rate/ Rhythm, no swelling, edema or tenderness in BUE or BLE. All extremities warm. GI: + bowel sounds, soft, NTTP, nondistended. INTEGUMENTARY: Normal, no lesion, rash, masses or bruising noted in extremities. MUSCULOSKELETAL: BUE and BLE normal without defect, crepitus, subluxation, effusion, arthritic changes or TTP. SA EF WE EE FF FA HF KE ADF EHL APF R 4-/5 4-/5 4-/5 4-/5 4-/5 4-/5 4-/5 4-/5 4-/5 4-/5 4-/5 L 5/5 5/5 5/5 5/5 5/5 5 /5 5/5 5/5 5/5 5/5 5/5 ROM full Tone normal NEURO: CN II - XII intact except Right facial droop Sensation intact in all extremities with extinction present on RLE No tremor noted in 4 extremities. Naming and repetition intact. Follows 2 step commands. Dysarthria present Dysphagia present Some right sided inattention when ambulating with contact of reyes. Able to draw a clock with no issue. Continue to push for improvement in scanning with walking. POSTURE and GAIT: Sitting posture good. Balance appears fair. Gait slowed, tends to drift right. PSYCH: Alert, orientated x3, affect appears flat. Insight appears intact. - Constitutional Vitals: Vital Signs - 12hr 02/01/19 02/01/19 02/01/19 07:30 08:12 10:24 Temperature 36.7 C Pulse Rate 56 L 60 Respiratory 18 Rate Blood Pressure 147/85 Blood Pressure 147/85 [Left] O2 Sat by Pulse 99 99 Oximetry 02/01/19 11:30 Temperature 37.2 C Pulse Rate 84 Respiratory 16 Rate Blood Pressure Blood Pressure 110/80 [Left] O2 Sat by Pulse 97 Oximetry - Allied health notes Allied health notes reviewed: nursing, PT, ST, OT FIMS assessment as documented by PT/OT/ST: Grooming Patient cleans teeth/dentures: Yes Patient blanco/brushes hair: Yes Patient washes, rinses and Yes dries face: Patient washes, rinses and Yes dries hands: Patient shaves: No: N/A Patient applies make-up: No Patient performs (no make-up/ 3/4 (75%) shaving): Grooming FIM Score 4. Minimal Assistance (Patient = 75% or more. Needs touching.) Toileting Toileting Device Grab Bar Patient able to: Adjust clothes before Patient able to perform: 2/3 (67%) Toileting FIM Score 3. Moderate Assistance (Patient = 50% or more. Some lifting.) Social interaction/Memory/Problem solving Social Interaction FIM Score 6. Mod. Lee (Mostly appropriate. May need meds. No supv.) Memory FIM Score 5. Supervision (Needs cueing <10%, stressful/ unfamiliar situations.) Problem Solving FIM Score 4. Minimal Assistance (Solves routine problems 75-90%.) Transfers Mode of Locomotion: Wheelchair Bed/Chair/Wheelchair Transfers 4. Minimal Assistance (Patient = 75% or more. FIM Score Needs touching.) Toilet Transfers FIM Score 4. Minimal Assistance (Patient = 75% or more. Needs touching.) Patient transferred to: Shower Shower Transfers FIM Score 4. Minimal Assistance (Patient = 75% or more. Needs touching.) Locomotion- Stairs Device used on Stairs Handrail/s Number of Stairs Ascended/ 12 Descended Patient used handrail/support: Yes Stairs FIM Score 5. Supervision (12-14 stairs w/ supv. 4-6 stairs independently.) Locomotion- walk/wheelchair Most Frequent Mode of Wheelchair Locomotion: Ambulation Distance 155 Walking FIM Score 4. Minimal Assistance (Patient = 75% or more. Minimum of 150 ft.) Wheelchair Propulsion Distance 150 Wheelchair FIM Score 5. Supervision (Minimum 150 ft. supv./cues or 50 ft. independently.) Eating Eating FIM Score 4. Minimal Assistance (Patient = 75% or more) Dressing-Upper body Patient retrieves clothing No items: Patient applies/removes UE No: N/A prosthesis or orthosis: Upper Body Dressing FIM Score 4. Minimal Assistance (Patient = 75% or more. Needs touching.) Dressing-lower body Patient retrieves clothing No items: Patient applies/removes LE No: N/A prosthesis or orthosis: Lower Body Dressing FIM Score 3. Moderate Assistance (Patient = 50% or more) - Labs CBC & Chem 7: 01/27/19 05:12 01/29/19 07:26 Labs: Laboratory Results - last 72 hr 01/29/19 01/29/19 01/30/19 16:50 22:05 07:30 POC Glucose 63 L 83 85 01/30/19 01/30/19 01/31/19 11:30 16:24 07:55 POC Glucose 220 H 128 H 97 01/31/19 01/31/19 01/31/19 11:54 16:47 18:24 POC Glucose 86 64 L 151 H 01/31/19 02/01/19 02/01/19 22:49 07:18 11:49 POC Glucose 107 H 78 229 H Assessment and Plan I69.351 CVA with hemiparesis of the right dominant side: Continue secondary stroke prevention. Monitor for post stroke depression and CRPS. Continue therapy in order to improve stroke recovery. Monitor for change in neurologic function or worsening of stroke symptoms. I69.391 Dysphagia: Continue dysphagia diet and advance as safely able. UTILITY REPAIRER monitor and may use FEES and/or MBS to assess for safe diet upgrade. E-stim if needed. MBSS showed [facility] [place] Thick I69.322 Dysarthria: Continue UTILITY REPAIRER strategies to improve vocalization and are alternative methods of communication if needed. K59.00 Constipation: Start MiraLAX monitor for improvement. Bisacodyl supp prn Z73.6 ADL dysfunction: OT will work on improving ability to perform ADLs (including assistive devices) to increase independence and decrease caregiver burden and improve functional transfers and mobility training. R26.2 Difficulty walking: PT will work on gait training and proper use of assistive devices and advance as appropriate to use of stairs and outside ambu lation on uneven surfaces. R26.81 Unsteadiness on feet: PT will work on improving static and dynamic sitting and standing balance as well as proper use of assistive devices to decrease risk of falls. R26.89 Abnormality of gait: PT will work to improve safety and efficiency of gait through neuromotor training and gait training along with instruction on proper use of assistive devices. M62.81 Muscle weakness: PT & OT will work on strengthening exercises to improve functional strength including mixture of closed and open kinetic chain exercises. R53.81 Debility: PT & OT will work on improving overall functional status to improve participation with ADLs, mobility and social involvement. R53.83 Fatigue: PT & OT will work on improving endurance through aerobic exercises and therapeutic activity while monitoring patients tolerance for activity and vital signs as needed. Internal medicine consultation for management of diabetes and hypertension. Appreciate their assistance. BP improving. DVT ppx: Lovenox Pain: Continue physical modalities in therapy and pain medications as needed to achieve functional pain control. Sleep: Monitor and address as needed. Bowel: Monitor and address as needed. Appetite: Monitor and address as needed. Discharge planning: Pending therapy progress and care plan meeting. Will continue discussion with therapy team, SW, patient and family. Restrictions/ Precautions: Falls, swallow WB status: FWB Functional Hx: ADLs: Independent Cognition: Independent Mobility: No AD Barriers to Discharge: Decreased mobility and ability to perform self care, balance deficits, weakness, dominant hemiparesis, dysphagia and dysarthria Estimated Length of Stay: 14-21 days Discharge Destination: Home with family
[2019-02-01] MEDS: MIRALAX 3350 PO SCH (17:20)
[2019-02-01] MEDS: LOVENOX SUB-Q SCH (17:21)
--- NOTE | 2019-02-01 17:59 | Progress Note ---
Assessment and Plan Assessment and plan: --Hypertension; well controlled Continue current antihypertensives, when necessary medications --Type 2 diabetes mellitus; well controlled Accu-Chek SSC and ADA diet Glipizide 5 mg daily hemoglobin A1c 9.7, diabetic education --Dyslipidemia; on statin, low cholesterol diet --Mild/moderate malnutrition hypoalbuminemia; nutrition supplements --History of CVA; with right-sided weakness/dysarthria Not a candidate for TPA or thrombectomy PT,OT,ST and rehab --DVT prophylaxis; Lovenox --Full code Plan of care reviewed with the patient and her nurse Also discussed with the family member at the bedside History Interval history: Patient seen and examined this morning medical records reviewed Patient feels better sitting in a chair in the dining room Not in acute distress Vital signs reviewed Hospitalist Physical - Constitutional Vitals: Temp Pulse Resp BP Pulse Ox 98.9 F 84 16 110/80 97 02/01/19 11:30 02/01/19 11:30 02/01/19 11:30 02/01/19 11:30 02/01/19 11:30 General appearance: Present: no acute distress, well-nourished - EENT Eyes: Present: PERRL, EOM intact - Neck Neck: Present: supple, normal ROM - Respiratory Respiratory effort: normal Respiratory: bilateral: diminished, negative: rales, rhonchi, wheezing - Cardiovascular Rhythm: regular Heart Sounds: Present: S1 & S2 - Extremities Extremities: no ischemia, No edema - Abdominal General gastrointestinal: soft, non-tender, non-distended, normal bowel sounds - Integumentary Integumentary: Present: clear, warm - Psychiatric Psychiatric: appropriate mood/affect, cooperative - Neurologic Neurologic: other (Dysarthria and residual weakness) Results - Labs CBC & Chem 7: 01/27/19 05:12 01/29/19 07:26 Labs: Laboratory Last Values WBC 4.1 K/mm3 (4.5-11.0) L 01/27/19 05:12 RBC 3.85 M/mm3 (3.65-5.03) 01/27/19 05:12 Hgb 10.6 gm/dl (10.1-14.3) 01/27/19 05:12 Hct 32.5 % (30.3-42.9) 01/27/19 05:12 MCV 84 fl (79-97) 01/27/19 05:12 MCH 28 pg (28-32) 01/27/19 05:12 MCHC 33 % (30-34) 01/27/19 05:12 RDW 14.3 % (13.2-15.2) 01/27/19 05:12 Plt Count 175 K/mm3 (140-440) 01/27/19 05:12 Lymph % (Auto) 54.4 % (13.4-35.0) H 01/27/19 05:12 Love % (Auto) 6.7 % (0.0-7.3) 01/27/19 05:12 Eos % (Auto) 3.0 % (0.0-4.3) 01/27/19 05:12 Baso % (Auto) 0.6 % (0.0-1.8) 01/27/19 05:12 Lymph # 2.2 K/mm3 (1.2-5.4) 01/27/19 05:12 Love # 0.3 K/mm3 (0.0-0.8) 01/27/19 05:12 Eos # 0.1 K/mm3 (0.0-0.4) 01/27/19 05:12 Baso # 0.0 K/mm3 (0.0-0.1) 01/27/19 05:12 Seg Neutrophils % 35.3 % (40.0-70.0) L 01/27/19 05:12 Seg Neutrophils # 1.5 K/mm3 (1.8-7.7) L 01/27/19 05:12 Sodium 143 mmol/L (137-145) 01/29/19 07:26 Potassium 4.1 mmol/L (3.6-5.0) 01/29/19 07:26 Chloride 110.0 mmol/L (98-107) H 01/29/19 07:26 Carbon Dioxide 23 mmol/L (22-30) 01/29/19 07:26 Anion Gap 14 mmol/L 01/29/19 07:26 BUN 19 mg/dL (7-17) H 01/29/19 07:26 Creatinine 1.0 mg/dL (0.7-1.2) 01/29/19 07:26 Estimated GFR > 60 ml/min 01/29/19 07:26 BUN/Creatinine Ratio 19 % 01/29/19 07:26 Glucose 125 mg/dL (65-100) H 01/29/19 07:26 POC Glucose 181 (70-105) H 02/01/19 17:17 Calcium 9.1 mg/dL (8.4-10.2) 01/29/19 07:26 Magnesium 1.90 mg/dL (1.7-2.3) 01/29/19 07:26 Total Bilirubin 0.20 mg/dL (0.1-1.2) 01/27/19 05:12 AST 11 units/L (5-40) 01/27/19 05:12 ALT 6 units/L (7-56) L 01/27/19 05:12 Alkaline Phosphatase 63 units/L (35-129) 01/27/19 05:12 Total Protein 5.9 g/dL (6.3-8.2) L 01/27/19 05:12 Albumin 3.4 g/dL (3.9-5) L 01/27/19 05:12 Albumin/Globulin Ratio 1.4 % 01/27/19 05:12 Prealbumin 0.225 g/L (0.200-0.400) 01/29/19 07:26 Triglycerides 85 mg/dL (2-149) 01/27/19 05:12 Cholesterol 112 mg/dL (50-199) 01/27/19 05:12 LDL Cholesterol Direct 56 mg/dL (50-130) 01/27/19 05:12 HDL Cholesterol 49 mg/dL (40-59) 01/27/19 05:12 Cholesterol/HDL Ratio 2.28 % 01/27/19 05:12 Active Medications - Current Medications Current Medications: Generic Name Dose Route Start Last Admin Trade Name Freq PRN Reason Stop Dose Admin Acetaminophen 650 mg 01/26/19 19:12 Tylenol PO Q4H PRN Pain MILD(1-3)/Fever >100.5/ARCHER Aspirin 325 mg 01/27/19 08:00 02/01/19 08:11 Ecotrin PO 325 mg QDAY BAY Administration Atorvastatin Calcium 40 mg 01/26/19 21:00 01/31/19 20:53 Lipitor PO 40 mg QHS BAY Administration Bisacodyl 10 mg 01/26/19 19:12 Dulcolax [place] QDAY PRN Constipation unrelieved by MOM Carvedilol 6.25 mg 01/26/19 22:00 02/01/19 08:12 Coreg PO 6.25 mg BID BAY Administration Dextrose 50 ml 01/26/19 19:12 D50w (25gm) Syringe IV PRN PRN Hypoglycemia Enoxaparin Sodium 40 mg 01/27/19 08:00 02/01/19 17:21 Lovenox SUB-Q 40 mg QDAY BAY Administration Glipizide 5 mg 01/31/19 16:06 02/01/19 08:12 Glucotrol PO 5 mg QDDIAB BAY Administration Insulin Human Lispro 0 unit 01/26/19 22:00 02/01/19 17:34 Humalog SUB-Q 2 unit ACHS BAY Administration Protocol Magnesium Hydroxide 30 ml 01/26/19 19:12 Milk Of Magnesia PO Q4H PRN Constipation Polyethylene Glycol 17 gm 01/27/19 08:00 02/01/19 17:20 Miralax 3350 PO 17 gm QDAY BAY Administration Nutrition/Malnutrition Assess - Dietary Evaluation Nutrition/Malnutrition Findings: Nutrition Notes Start: 01/27/19 12:34 Freq: Status: Active Protocol: Document 01/27/19 12:34 RM (Rec: 01/27/19 12:39 RM [id number]) Nutrition Notes Need for Assessment generated from: MD Order Initial or Follow up Assessment Current Diagnosis Diabetes,Hypertension, Hyperlipidemia Other Pertinent Diagnosis Hx multiple CVAs Current Diet Consistent CHO Labs/Tests A1c 5.3 per Hx and physical Pertinent Medications Reviewed Height 5 ft 1 in Weight 52.9 kg [place] Body Weight (kg) 47.72 BMI 22.0 Subjective/Other Information Consulted for DM diet education. Reviewed DM diet education to prevention development of prediabetes. Gave handout. #1 Nutrition Diagnosis Food and nutrition-related knowledge deficit Etiology lack of prior education As Evidenced by Signs and Symptoms no prior knowledge of need for food and nutrition recommendations Nutrition Intervention Teaching Recipient Patient Learning Readiness Good Teaching Methods Discussion,Handout Response to Teaching Verbalize understanding Education Handouts Provided Carbohydrate Counting for People with Diabetes Barriers to Learning No Barriers RD phone number provided Yes Patient aware of follow up options Yes Goal #1 Utilize carbohydrate counting Revisit per MD consult or patient Sign Off request:
[2019-02-02] MEDS: HumaLOG SUB-Q SCH ×4 (07:44→21:03)
[2019-02-02] MEDS: MIRALAX 3350 PO SCH (08:55)
[2019-02-02] MEDS: ECOTRIN PO SCH (08:56)
[2019-02-02] MEDS: GLUCOTROL PO SCH (08:56)
[2019-02-02] MEDS: LOVENOX SUB-Q SCH (08:56)
[2019-02-02] MEDS: COREG PO SCH ×2 (08:56→21:09)
--- NOTE | 2019-02-02 11:22 | Progress Note ---
Assessment and Plan Assessment and plan: --Hypertension; well controlled Continue current antihypertensives, when necessary medications --Type 2 diabetes mellitus; well controlled Accu-Chek SSC and ADA diet Glipizide 5 mg daily , A1c 9.7, diabetic education --Dyslipidemia; on statin, low cholesterol diet --Mild/moderate malnutrition hypoalbuminemia; nutrition supplements --History of CVA; with right-sided weakness/dysarthria Not a candidate for TPA or thrombectomy PT,OT,ST and rehab --DVT prophylaxis; Lovenox --Full code Plan of care reviewed with the patient and her nurse Also discussed with the family member at the bedside History Interval history: Patient seen and examined this morning medical records reviewed No new complaints, tolerating physical therapy Alert awake, mild dysarthria Vital signs noted Hospitalist Physical - Constitutional Vitals: Temp Pulse Resp BP Pulse Ox 97.8 F 76 17 138/82 99 02/02/19 03:24 02/02/19 08:56 02/02/19 03:24 02/02/19 08:56 02/02/19 03:24 General appearance: Present: no acute distress, well-nourished - EENT Eyes: Present: PERRL, EOM intact - Neck Neck: Present: supple, normal ROM - Respiratory Respiratory effort: normal Respiratory: bilateral: diminished, negative: rales, rhonchi, wheezing - Cardiovascular Rhythm: regular Heart Sounds: Present: S1 & S2 - Extremities Extremities: no ischemia, No edema - Abdominal General gastrointestinal: soft, non-tender, non-distended, normal bowel sounds - Integumentary Integumentary: Present: clear, warm - Psychiatric Psychiatric: appropriate mood/affect, cooperative - Neurologic Neurologic: CNII-XII intact, moves all extremities Results - Labs CBC & Chem 7: 01/27/19 05:12 01/29/19 07:26 Labs: Laboratory Last Values WBC 4.1 K/mm3 (4.5-11.0) L 01/27/19 05:12 RBC 3.85 M/mm3 (3.65-5.03) 01/27/19 05:12 Hgb 10.6 gm/dl (10.1-14.3) 01/27/19 05:12 Hct 32.5 % (30.3-42.9) 01/27/19 05:12 MCV 84 fl (79-97) 01/27/19 05:12 MCH 28 pg (28-32) 01/27/19 05:12 MCHC 33 % (30-34) 01/27/19 05:12 RDW 14.3 % (13.2-15.2) 01/27/19 05:12 Plt Count 175 K/mm3 (140-440) 01/27/19 05:12 Lymph % (Auto) 54.4 % (13.4-35.0) H 01/27/19 05:12 [place] % (Auto) 6.7 % (0.0-7.3) 01/27/19 05:12 Eos % (Auto) 3.0 % (0.0-4.3) 01/27/19 05:12 Baso % (Auto) 0.6 % (0.0-1.8) 01/27/19 05:12 Lymph # 2.2 K/mm3 (1.2-5.4) 01/27/19 05:12 [place] # 0.3 K/mm3 (0.0-0.8) 01/27/19 05:12 Eos # 0.1 K/mm3 (0.0-0.4) 01/27/19 05:12 Baso # 0.0 K/mm3 (0.0-0.1) 01/27/19 05:12 Seg Neutrophils % 35.3 % (40.0-70.0) L 01/27/19 05:12 Seg Neutrophils # 1.5 K/mm3 (1.8-7.7) L 01/27/19 05:12 Sodium 143 mmol/L (137-145) 01/29/19 07:26 Potassium 4.1 mmol/L (3.6-5.0) 01/29/19 07:26 Chloride 110.0 mmol/L (98-107) H 01/29/19 07:26 Carbon Dioxide 23 mmol/L (22-30) 01/29/19 07:26 Anion Gap 14 mmol/L 01/29/19 07:26 BUN 19 mg/dL (7-17) H 01/29/19 07:26 Creatinine 1.0 mg/dL (0.7-1.2) 01/29/19 07:26 Estimated GFR > 60 ml/min 01/29/19 07:26 BUN/Creatinine Ratio 19 % 01/29/19 07:26 Glucose 125 mg/dL (65-100) H 01/29/19 07:26 POC Glucose 204 (70-105) H 02/02/19 11:17 Calcium 9.1 mg/dL (8.4-10.2) 01/29/19 07:26 Magnesium 1.90 mg/dL (1.7-2.3) 01/29/19 07:26 Total Bilirubin 0.20 mg/dL (0.1-1.2) 01/27/19 05:12 AST 11 units/L (5-40) 01/27/19 05:12 ALT 6 units/L (7-56) L 01/27/19 05:12 Alkaline Phosphatase 63 units/L (35-129) 01/27/19 05:12 Total Protein 5.9 g/dL (6.3-8.2) L 01/27/19 05:12 Albumin 3.4 g/dL (3.9-5) L 01/27/19 05:12 Albumin/Globulin Ratio 1.4 % 01/27/19 05:12 Prealbumin 0.225 g/L (0.200-0.400) 01/29/19 07:26 Triglycerides 85 mg/dL (2-149) 01/27/19 05:12 Cholesterol 112 mg/dL (50-199) 01/27/19 05:12 LDL Cholesterol Direct 56 mg/dL (50-130) 01/27/19 05:12 HDL Cholesterol 49 mg/dL (40-59) 01/27/19 05:12 Cholesterol/HDL Ratio 2.28 % 01/27/19 05:12 Active Medications - Current Medications Current Medications: Generic Name Dose Route Start Last Admin Trade Name Freq PRN Reason Stop Dose Admin Acetaminophen 650 mg 01/26/19 19:12 Tylenol PO Q4H PRN Pain MILD(1-3)/Fever >100.5/ARCHER Aspirin 325 mg 01/27/19 08:00 02/02/19 08:56 Ecotrin PO 325 mg QDAY BAY Administration Atorvastatin Calcium 40 mg 01/26/19 21:00 02/01/19 21:49 Lipitor PO 40 mg QHS BAY Administration Bisacodyl 10 mg 01/26/19 19:12 Dulcolax [place] QDAY PRN Constipation unrelieved by MOM Carvedilol 6.25 mg 01/26/19 22:00 02/02/19 08:56 Coreg PO 6.25 mg BID BAY Administration Dextrose 50 ml 01/26/19 19:12 D50w (25gm) Syringe IV PRN PRN Hypoglycemia Enoxaparin Sodium 40 mg 01/27/19 08:00 02/02/19 08:56 Lovenox SUB-Q 40 mg QDAY BAY Administration Glipizide 5 mg 01/31/19 16:06 02/02/19 08:56 Glucotrol PO 5 mg QDDIAB BAY Administration Insulin Human Lispro 0 unit 01/26/19 22:00 02/02/19 07:44 Humalog SUB-Q Not Given ACHS [facility] Protocol Magnesium Hydroxide 30 ml 01/26/19 19:12 Milk Of Magnesia PO Q4H PRN Constipation Polyethylene Glycol 17 gm 01/27/19 08:00 02/02/19 08:55 Miralax 3350 PO 17 gm QDAY BAY Administration Nutrition/Malnutrition Assess - Dietary Evaluation Nutrition/Malnutrition Findings: Nutrition Notes Start: 01/27/19 12:34 Freq: Status: Active Protocol: Document 01/27/19 12:34 RM (Rec: 01/27/19 12:39 RM [id number]) Nutrition Notes Need for Assessment generated from: MD Order Initial or Follow up Assessment Current Diagnosis Diabetes,Hypertension, Hyperlipidemia Other Pertinent Diagnosis Hx multiple CVAs Current Diet Consistent CHO Labs/Tests A1c 5.3 per Hx and physical Pertinent Medications Reviewed Height 5 ft 1 in Weight 52.9 kg [place] Body Weight (kg) 47.72 BMI 22.0 Subjective/Other Information Consulted for DM diet education. Reviewed DM diet education to prevention development of prediabetes. Gave handout. #1 Nutrition Diagnosis Food and nutrition-related knowledge deficit Etiology lack of prior education As Evidenced by Signs and Symptoms no prior knowledge of need for food and nutrition recommendations Nutrition Intervention Teaching Recipient Patient Learning Readiness Good Teaching Methods Discussion,Handout Response to Teaching Verbalize understanding Education Handouts Provided Carbohydrate Counting for People with Diabetes Barriers to Learning No Barriers RD phone number provided Yes Patient aware of follow up options Yes Goal #1 Utilize carbohydrate counting Revisit per MD consult or patient Sign Off request:
--- NOTE | 2019-02-02 13:43 | Progress Note ---
Subjective Date of service: 02/02/19 Principal diagnosis: CVA Interval history: 64-year-old female who presented to the ED with stroke symptoms. Stated that she had taken a nap and woke up with right facial droop and dysarthria. She was outside the therapeutic window for TPA and was not a candidate for thrombectomy. She was worked up for CVA and the brain MRI showed small left internal capsule lacunar infarct. Hemoglobin A1c at outside hospital was 5.3. She has a history of previous strokes in the past. She and her son state that she had recovered from previous strokes without major residual deficits. She is right hand dominant. She lives with family in a single story home and was previously independent with ADLs. She states is been several days since her last bowel movement. She's been sleeping poorly but declines assistance with medication. Secondary prevention was discussed with her and her son. Stroke prognosis and anticipated recovery time was also discussed. GLU has improved but she does have reduced PO intake compared to home due to food preference, consistency and thickeners. Glipizide reduced, monitor GLU for improvement. Most recent A1c at OSH was 5.3. Encouraged to continue PO fluid intake. Vital signs within normal limits. Patient is participating in therapy and making reasonable progress. Taking rest breaks as needed. +BM. Denies pain, palpitations, dyspnea, cough, N/V or joint pain. Right inattention worse with ambulation but improving. Using flynn walker with good success. E-Stim being used to improve swallowing ability. Discussed in Team Conference. Ambulating with a flynn walker. Dysphagia/dysarthria are major issues. Safety awareness is improving. Supportive family available at discharge. Continue to work towards goals. All records, vitals, labs and medications were reviewed. No other issues per patient, nursing or therapy. Objective - Exam Narrative Exam: MUSCULOSKELETAL SPECIALTY EXAM CONSTITUTIONAL: Well developed, well nourished, appropriately groomed. RIGHT hand dominant. RESPIRATORY: Clear to auscultation bilaterally, no increased work of breathing CARDIOVASCULAR: Regular Rate/ Rhythm, no swelling, edema or tenderness in BUE or BLE. All extremities warm. GI: + bowel sounds, soft, NTTP, nondistended. INTEGUMENTARY: Normal, no lesion, rash, masses or bruising noted in extremities. MUSCULOSKELETAL: BUE and BLE normal without defect, crepitus, subluxation, effusion, arthritic changes or TTP. SA EF WE EE FF FA HF KE ADF EHL APF R 4-/5 4-/5 4-/5 4-/5 4-/5 4-/5 4-/5 4-/5 4-/5 4-/5 4-/5 L 5/5 5/5 5/5 5/5 5/5 5 /5 5/5 5/5 5/5 5/5 5/5 ROM full Tone normal NEURO: CN II - XII intact except Right facial droop Sensation intact in all extremities with extinction present on RLE No tremor noted in 4 extremities. Naming and repetition intact. Follows 2 step commands. Dysarthria present Dysphagia present Some right sided inattention when ambulating with contact of reyes. Able to draw a clock with no issue. Continue to push for improvement in scanning with walking. POSTURE and GAIT: Sitting posture good. Balance appears fair. Gait slowed, using flynn walker now with improving step to gait pattern. PSYCH: Alert, orientated x3, affect appears flat. Insight appears intact. - Constitutional Vitals: Vital Signs - 12hr 02/02/19 02/02/19 02/02/19 03:24 08:56 11:00 Temperature 36.6 C 36.6 C Pulse Rate 57 L 76 73 Respiratory 17 18 Rate Blood Pressure 148/85 138/82 Blood Pressure 123/78 [Left] O2 Sat by Pulse 99 98 Oximetry - Allied health notes Allied health notes reviewed: nursing, PT, ST, OT FIMS assessment as documented by PT/OT/ST: Grooming Patient cleans teeth/dentures: Yes Patient blanco/brushes hair: Yes Patient washes, rinses and Yes dries face: Patient washes, rinses and Yes dries hands: Patient shaves: No: N/A Patient applies make-up: No Patient performs (no make-up/ 3/4 (75%) shaving): Grooming FIM Score 4. Minimal Assistance (Patient = 75% or more. Needs touching.) Toileting Toileting Device Grab Bar Patient able to: Adjust clothes before Patient able to perform: 2/3 (67%) Toileting FIM Score 3. Moderate Assistance (Patient = 50% or more. Some lifting.) Social interaction/Memory/Problem solving Social Interaction FIM Score 6. Mod. [place]comb (Mostly appropriate. May need meds. No supv.) Memory FIM Score 5. Supervision (Needs cueing <10%, stressful/ unfamiliar situations.) Problem Solving FIM Score 4. Minimal Assistance (Solves routine problems 75-90%.) Transfers Mode of Locomotion: Wheelchair Bed/Chair/Wheelchair Transfers 4. Minimal Assistance (Patient = 75% or more. FIM Score Needs touching.) Toilet Transfers FIM Score 4. Minimal Assistance (Patient = 75% or more. Needs touching.) Patient transferred to: Shower Shower Transfers FIM Score 4. Minimal Assistance (Patient = 75% or more. Needs touching.) Locomotion- Stairs Device used on Stairs Handrail/s Number of Stairs Ascended/ 12 Descended Patient used handrail/support: Yes Stairs FIM Score 5. Supervision (12-14 stairs w/ supv. 4-6 stairs independently.) Locomotion- walk/wheelchair Most Frequent Mode of Wheelchair Locomotion: Ambulation Distance 100 Walking FIM Score 3. Moderate Assistance (Patient=50% or more. Lifting. Minimum 150 ft.) Wheelchair Propulsion Distance 150 Wheelchair FIM Score 5. Supervision (Minimum 150 ft. supv./cues or 50 ft. independently.) Eating Eating FIM Score 4. Minimal Assistance (Patient = 75% or more) Dressing-Upper body Patient retrieves clothing No items: Patient applies/removes UE No: N/A prosthesis or orthosis: Upper Body Dressing FIM Score 4. Minimal Assistance (Patient = 75% or more. Needs touching.) Dressing-lower body Patient retrieves clothing No items: Patient applies/removes LE No: N/A prosthesis or orthosis: Lower Body Dressing FIM Score 3. Moderate Assistance (Patient = 50% or more) - Labs CBC & Chem 7: 01/27/19 05:12 01/29/19 07:26 Labs: Laboratory Results - last 72 hr 01/30/19 01/31/19 01/31/19 16:24 07:55 11:54 POC Glucose 128 H 97 86 01/31/19 01/31/19 01/31/19 16:47 18:24 22:49 POC Glucose 64 L 151 H 107 H 02/01/19 02/01/19 02/01/19 07:18 11:49 16:43 POC Glucose 78 229 H 59 L 02/01/19 02/01/1902/02/19 17:17 22:00 07:42 POC Glucose 181 H 126 H 116 H 02/02/19 11:17 POC Glucose 204 H Assessment and Plan I69.351 CVA with hemiparesis of the right dominant side: Continue secondary stroke prevention. Monitor for post stroke depression and CRPS. Continue therapy in order to improve stroke recovery. Monitor for change in neurologic function or worsening of stroke symptoms. I69.391 Dysphagia: Continue dysphagia diet and advance as safely able. PROCESS PROJECT ENGINEER monitor and may use FEES and/or MBS to assess for safe diet upgrade. E-stim if needed. MBSS showed aspiration - will remain on [facility] Soft / [place] Thick I69.322 Dysarthria: Continue PROCESS PROJECT ENGINEER strategies to improve vocalization and are alternative methods of communication if needed. K59.00 Constipation: Start MiraLAX monitor for improvement. Bisacodyl supp prn Z73.6 ADL dysfunction: OT will work on improving ability to perform ADLs (including assistive devices) to increase independence and decrease caregiver burden and improve functional transfers and mobility training. R26.2 Difficulty walking: PT will work on gait training and proper use of assistive devices and advance as appropriate to use of stairs and outside ambulation on uneven surfaces. R26.81 Unsteadiness on feet: PT will work on improving static and dynamic sitting and standing balance as well as proper use of assistive devices to decrease risk of falls. R26.89 Abnormality of gait: PT will work to improve safety and efficiency of gait through neuromotor training and gait training along with instruction on proper use of assistive devices. M62.81 Muscle weakness: PT & OT will work on strengthening exercises to improve functional strength including mixture of closed and open kinetic chain e xercises. R53.81 Debility: PT & OT will work on improving overall functional status to improve participation with ADLs, mobility and social involvement. R53.83 Fatigue: PT & OT will work on improving endurance through aerobic exercises and therapeutic activity while monitoring patients tolerance for activity and vital signs as needed. Internal medicine consultation for management of diabetes and hypertension. Appreciate their assistance. BP improving. GLU better DVT ppx: Lovenox Pain: Continue physical modalities in therapy and pain medications as needed to achieve functional pain control. Sleep: Monitor and address as needed. Bowel: Monitor and address as needed. Appetite: Monitor and address as needed. Discharge planning: Pending therapy progress and care plan meeting. Will continue discussion with therapy team, SW, patient and family. Restrictions/ Precautions: Falls, swallow WB status: FWB Functional Hx: ADLs: Independent Cognition: Independent Mobility: No AD Barriers to Discharge: Decreased mobility and ability to perform self care, balance deficits, weakness, dominant hemiparesis, dysphagia and dysarthria Estimated Length of Stay: 14-21 days Discharge Destination: Home with family
[2019-02-03] MEDS: HumaLOG SUB-Q SCH ×4 (08:02→22:27)
[2019-02-03] MEDS: ECOTRIN PO SCH (08:56)
[2019-02-03] MEDS: COREG PO SCH ×2 (08:56→23:00)
[2019-02-03] MEDS: MIRALAX 3350 PO SCH (08:57)
[2019-02-03] MEDS: LOVENOX SUB-Q SCH (08:58)
[2019-02-03] MEDS: GLUCOTROL PO SCH (08:59)
--- NOTE | 2019-02-03 17:04 | Progress Note ---
Assessment and Plan Assessment and plan: --Hypertension; well controlled Continue current antihypertensives, when necessary medications --Type 2 diabetes mellitus; well controlled Accu-Chek SSC and ADA diet Glipizide 5 mg daily , A1c 9.7, diabetic education --Dyslipidemia; on statin, low cholesterol diet --Mild/moderate malnutrition hypoalbuminemia; nutrition supplements --History of CVA; with right-sided weakness/dysarthria Not a candidate for TPA or thrombectomy PT,OT,ST and rehab --DVT prophylaxis; Lovenox --Full code Plan of care reviewed with the patient and her nurse Also discussed with the family member at the bedside History Interval history: Patient seen and examined medical records reviewed No new complaints Tolerating physical therapy Vitals stable Hospitalist Physical - Constitutional Vitals: Temp Pulse Resp BP Pulse Ox 98.9 F 61 17 133/70 93 02/03/19 15:38 02/03/19 15:38 02/03/19 15:38 02/03/19 15:38 02/03/19 15:38 General appearance: Present: no acute distress, well-nourished - EENT Eyes: Present: PERRL, EOM intact - Neck Neck: Present: supple, normal ROM - Respiratory Respiratory effort: normal Respiratory: bilateral: diminished, negative: rales, rhonchi, wheezing - Cardiovascular Rhythm: regular Heart Sounds: Present: S1 & S2 - Extremities Extremities: no ischemia, No edema - Abdominal General gastrointestinal: soft, non-tender, non-distended, normal bowel sounds - Integumentary Integumentary: Present: clear, warm - Psychiatric Psychiatric: appropriate mood/affect, cooperative - Neurologic Neurologic: other ( residual deficit) Results - Labs CBC & Chem 7: 01/27/19 05:12 01/29/19 07:26 Labs: Laboratory Last Values WBC 4.1 K/mm3 (4.5-11.0) L 01/27/19 05:12 RBC 3.85 M/mm3 (3.65-5.03) 01/27/19 05:12 Hgb 10.6 gm/dl (10.1-14.3) 01/27/19 05:12 Hct 32.5 % (30.3-42.9) 01/27/19 05:12 MCV 84 fl (79-97) 01/27/19 05:12 MCH 28 pg (28-32) 01/27/19 05:12 MCHC 33 % (30-34) 01/27/19 05:12 RDW 14.3 % (13.2-15.2) 01/27/19 05:12 Plt Count 175 K/mm3 (140-440) 01/27/19 05:12 Lymph % (Auto) 54.4 % (13.4-35.0) H 01/27/19 05:12 [place] % (Auto) 6.7 % (0.0-7.3) 01/27/19 05:12 Eos % (Auto) 3.0 % (0.0-4.3) 01/27/19 05:12 Baso % (Auto) 0.6 % (0.0-1.8) 01/27/19 05:12 Lymph # 2.2 K/mm3 (1.2-5.4) 01/27/19 05:12 [place] # 0.3 K/mm3 (0.0-0.8) 01/27/19 05:12 Eos # 0.1 K/mm3 (0.0-0.4) 01/27/19 05:12 Baso # 0.0 K/mm3 (0.0-0.1) 01/27/19 05:12 Seg Neutrophils % 35.3 % (40.0-70.0) L 01/27/19 05:12 Seg Neutrophils # 1.5 K/mm3 (1.8-7.7) L 01/27/19 05:12 Sodium 143 mmol/L (137-145) 01/29/19 07:26 Potassium 4.1 mmol/L (3.6-5.0) 01/29/19 07:26 Chloride 110.0 mmol/L (98-107) H 01/29/19 07:26 Carbon Dioxide 23 mmol/L (22-30) 01/29/19 07:26 Anion Gap 14 mmol/L 01/29/19 07:26 BUN 19 mg/dL (7-17) H 01/29/19 07:26 Creatinine 1.0 mg/dL (0.7-1.2) 01/29/19 07:26 Estimated GFR > 60 ml/min 01/29/19 07:26 BUN/Creatinine Ratio 19 % 01/29/19 07:26 Glucose 125 mg/dL (65-100) H 01/29/19 07:26 POC Glucose 79 (70-105) 02/03/19 16:32 Calcium 9.1 mg/dL (8.4-10.2) 01/29/19 07:26 Magnesium 1.90 mg/dL (1.7-2.3) 01/29/19 07:26 Total Bilirubin 0.20 mg/dL (0.1-1.2) 01/27/19 05:12 AST 11 units/L (5-40) 01/27/19 05:12 ALT 6 units/L (7-56) L 01/27/19 05:12 Alkaline Phosphatase 63 units/L (35-129) 01/27/19 05:12 Total Protein 5.9 g/dL (6.3-8.2) L 01/27/19 05:12 Albumin 3.4 g/dL (3.9-5) L 01/27/19 05:12 Albumin/Globulin Ratio 1.4 % 01/27/19 05:12 Prealbumin 0.225 g/L (0.200-0.400) 01/29/19 07:26 Triglycerides 85 mg/dL (2-149) 01/27/19 05:12 Cholesterol 112 mg/dL (50-199) 01/27/19 05:12 LDL Cholesterol Direct 56 mg/dL (50-130) 01/27/19 05:12 HDL Cholesterol 49 mg/dL (40-59) 01/27/19 05:12 Cholesterol/HDL Ratio 2.28 % 01/27/19 05:12 Active Medications - Current Medications Current Medications: Generic Name Dose Route Start Last Admin Trade Name Freq PRN Reason Stop Dose Admin Acetaminophen 650 mg 01/26/19 19:12 Tylenol PO Q4H PRN Pain MILD(1-3)/Fever >100.5/ARCHER Aspirin 325 mg 01/27/19 08:00 02/03/19 08:56 Ecotrin PO 325 mg QDAY BAY Administration Atorvastatin Calcium 40 mg 01/26/19 21:00 02/02/19 21:05 Lipitor PO 40 mg QHS BAY Administration Bisacodyl 10 mg 01/26/19 19:12 Dulcolax HI QDAY PRN Constipation unrelieved by MOM Carvedilol 6.25 mg 01/26/19 22:00 02/03/19 08:56 Coreg PO 6.25 mg BID BAY Administration Dextrose 50 ml 01/26/19 19:12 D50w (25gm) Syringe IV PRN PRN Hypoglycemia Enoxaparin Sodium 40 mg 01/27/19 08:00 02/03/19 08:58 Lovenox SUB-Q 40 mg QDAY BAY Administration Glipizide 5 mg 01/31/19 16:06 02/03/19 08:59 Glucotrol PO 5 mg QDDIAB BAY Administration Insulin Human Lispro 0 unit 01/26/19 22:00 02/03/19 16:37 Humalog SUB-Q Not Given ACHS BAY Protocol Magnesium Hydroxide 30 ml 01/26/19 19:12 Milk Of Magnesia PO Q4H PRN Constipation Polyethylene Glycol 17 gm 01/27/19 08:00 02/03/19 08:57 Miralax 3350 PO 17 gm QDAY BAY Administration Nutrition/Malnutrition Assess - Dietary Evaluation Nutrition/Malnutrition Findings: Nutrition Notes Start: 01/27/19 12:34 Freq: Status: Active Protocol: Document 01/27/19 12:34 RM (Rec: 01/27/19 12:39 RM [id number]) Nutrition Notes Need for Assessment generated from: MD Order Initial or Follow up Assessment Current Diagnosis Diabetes,Hypertension, Hyperlipidemia Other Pertinent Diagnosis Hx multiple CVAs Current Diet Consistent CHO Labs/Tests A1c 5.3 per Hx and physical Pertinent Medications Reviewed Height 5 ft 1 in Weight 52.9 kg [place] Body Weight (kg) 47.72 BMI 22.0 Subjective/Other Information Consulted for DM diet education. Reviewed DM diet education to prevention development of prediabetes. Gave handout. #1 Nutrition Diagnosis Food and nutrition-related knowledge deficit Etiology lack of prior education As Evidenced by Signs and Symptoms no prior knowledge of need for food and nutrition recommendations Nutrition Intervention Teaching Recipient Patient Learning Readiness Good Teaching Methods Discussion,Handout Response to Teaching Verbalize understanding Education Handouts Provided Carbohydrate Counting for People with Diabetes Barriers to Learning No Barriers RD phone number provided Yes Patient aware of follow up options Yes Goal #1 Utilize carbohydrate counting Revisit per MD consult or patient Sign Off request:
[2019-02-04] MEDS: LOVENOX SUB-Q SCH (09:29)
[2019-02-04] MEDS: GLUCOTROL PO SCH (09:29)
[2019-02-04] MEDS: MIRALAX 3350 PO SCH (09:29)
[2019-02-04] MEDS: ECOTRIN PO SCH (09:29)
[2019-02-04] MEDS: HumaLOG SUB-Q SCH ×4 (09:33→22:32)
[2019-02-04] MEDS: COREG PO SCH (13:20)
--- NOTE | 2019-02-04 19:49 | Progress Note ---
Assessment and Plan Assessment and plan: --Type 2 diabetes mellitus; low range blood sugars Hold Glipizide ,A1c 9.7, encourage oral nutrition --Dyslipidemia; on statin, low cholesterol diet --Mild/moderate malnutrition hypoalbuminemia; nutrition supplements --Hypertension; well controlled Continue current antihypertensives, when necessary medications --History of CVA; with right-sided weakness/dysarthria Not a candidate for TPA or thrombectomy PT,OT,ST and rehab --DVT prophylaxis; Lovenox --Full code Plan of care reviewed with the patient and her nurse History Interval history: Patient seen and examined medical records reviewed Patient's blood sugars are in the lower range We'll hold oral hypoglycemics No other symptoms Alert awake oriented Vitals noted Hospitalist Physical - Constitutional Vitals: Temp Pulse Resp BP Pulse Ox 98 F 57 L 17 161/87 98 02/04/19 17:00 02/04/19 17:00 02/04/19 19:22 02/04/19 17:00 02/04/19 12:06 General appearance: Present: no acute distress, well-nourished - EENT Eyes: Present: PERRL, EOM intact - Neck Neck: Present: supple, normal ROM - Respiratory Respiratory effort: normal Respiratory: negative: rales, rhonchi, wheezing - Cardiovascular Rhythm: regular Heart Sounds: Present: S1 & S2 - Extremities Extremities: no ischemia, No edema - Abdominal General gastrointestinal: soft, non-tender, non-distended, normal bowel sounds - Integumentary Integumentary: Present: clear, warm - Psychiatric Psychiatric: appropriate mood/affect, cooperative - Neurologic Neurologic: other (dysarthria ,residual weakness) Results - Labs CBC & Chem 7: 01/27/19 05:12 01/29/19 07:26 Labs: Laboratory Last Values WBC 4.1 K/mm3 (4.5-11.0) L 01/27/19 05:12 RBC 3.85 M/mm3 (3.65-5.03) 01/27/19 05:12 Hgb 10.6 gm/dl (10.1-14.3) 01/27/19 05:12 Hct 32.5 % (30.3-42.9) 01/27/19 05:12 MCV 84 fl (79-97) 01/27/19 05:12 MCH 28 pg (28-32) 01/27/19 05:12 MCHC 33 % (30-34) 01/27/19 05:12 RDW 14.3 % (13.2-15.2) 01/27/19 05:12 Plt Count 175 K/mm3 (140-440) 01/27/19 05:12 Lymph % (Auto) 54.4 % (13.4-35.0) H 01/27/19 05:12 [place] % (Auto) 6.7 % (0.0-7.3) 01/27/19 05:12 Eos % (Auto) 3.0 % (0.0-4.3) 01/27/19 05:12 Baso % (Auto) 0.6 % (0.0-1.8) 01/27/19 05:12 Lymph # 2.2 K/mm3 (1.2-5.4) 01/27/19 05:12 [place] # 0.3 K/mm3 (0.0-0.8) 01/27/19 05:12 Eos # 0.1 K/mm3 (0.0-0.4) 01/27/19 05:12 Baso # 0.0 K/mm3 (0.0-0.1) 01/27/19 05:12 Seg Neutrophils % 35.3 % (40.0-70.0) L 01/27/19 05:12 Seg Neutrophils # 1.5 K/mm3 (1.8-7.7) L 01/27/19 05:12 Sodium 143 mmol/L (137-145) 01/29/19 07:26 Potassium 4.1 mmol/L (3.6-5.0) 01/29/19 07:26 Chloride 110.0 mmol/L (98-107) H 01/29/19 07:26 Carbon Dioxide 23 mmol/L (22-30) 01/29/19 07:26 Anion Gap 14 mmol/L 01/29/19 07:26 BUN 19 mg/dL (7-17) H 01/29/19 07:26 Creatinine 1.0 mg/dL (0.7-1.2) 01/29/19 07:26 Estimated GFR > 60 ml/min 01/29/19 07:26 BUN/Creatinine Ratio 19 % 01/29/19 07:26 Glucose 125 mg/dL (65-100) H 01/29/19 07:26 POC Glucose 65 (70-105) L 02/04/19 16:56 Calcium 9.1 mg/dL (8.4-10.2) 01/29/19 07:26 Magnesium 1.90 mg/dL (1.7-2.3) 01/29/19 07:26 Total Bilirubin 0.20 mg/dL (0.1-1.2) 01/27/19 05:12 AST 11 units/L (5-40) 01/27/19 05:12 ALT 6 units/L (7-56) L 01/27/19 05:12 Alkaline Phosphatase 63 units/L (35-129) 01/27/19 05:12 Total Protein 5.9 g/dL (6.3-8.2) L 01/27/19 05:12 Albumin 3.4 g/dL (3.9-5) L 01/27/19 05:12 Albumin/Globulin Ratio 1.4 % 01/27/19 05:12 Prealbumin 0.225 g/L (0.200-0.400) 01/29/19 07:26 Triglycerides 85 mg/dL (2-149) 01/27/19 05:12 Cholesterol 112 mg/dL (50-199) 01/27/19 05:12 LDL Cholesterol Direct 56 mg/dL (50-130) 01/27/19 05:12 HDL Cholesterol 49 mg/dL (40-59) 01/27/19 05:12 Cholesterol/HDL Ratio 2.28 % 01/27/19 05:12 Active Medications - Current Medications Current Medications: Generic Name Dose Route Start Last Admin Trade Name Freq PRN Reason Stop Dose Admin Acetaminophen 650 mg 01/26/19 19:12 Tylenol PO Q4H PRN Pain MILD(1-3)/Fever >100.5/ARCHER Amlodipine Besylate 10 mg 02/05/19 08:00 Norvasc PO QDAY BAY Aspirin 325 mg 01/27/19 08:00 02/04/19 09:29 Ecotrin PO 325 mg QDAY BAY Administration Atorvastatin Calcium 40 mg 01/26/19 21:00 02/03/19 22:08 Lipitor PO 40 mg QHS BAY Administration Bisacodyl 10 mg 01/26/19 19:12 Dulcolax NC QDAY PRN Constipation unrelieved by MOM Dextrose 50 ml 01/26/19 19:12 D50w (25gm) Syringe IV PRN PRN Hypoglycemia Enoxaparin Sodium 40 mg 01/27/19 08:00 02/04/19 09:29 Lovenox SUB-Q 40 mg QDAY BAY Administration Glipizide 5 mg 01/31/19 16:06 02/04/19 09:29 Glucotrol PO 5 mg QDDIAB BAY Administration Insulin Human Lispro 0 unit 01/26/19 22:00 02/04/19 17:06 Humalog SUB-Q Not Given ACHS BAY Protocol Magnesium Hydroxide 30 ml 01/26/19 19:12 Milk Of Magnesia PO Q4H PRN Constipation Polyethylene Glycol 17 gm 01/27/19 08:00 02/04/19 09:29 Miralax 3350 PO 17 gm QDAY BAY Administration Nutrition/Malnutrition Assess - Dietary Evaluation Nutrition/Malnutrition Findings: Nutrition Notes Start: 01/27/19 12:34 Freq: Status: Active Protocol: Document 01/27/19 12:34 RM (Rec: 01/27/19 12:39 RM [id number]) Nutrition Notes Need for Assessment generated from: MD Order Initial or Follow up Assessment Current Diagnosis Diabetes,Hypertension, Hyperlipidemia Other Pertinent Diagnosis Hx multiple CVAs Current Diet Consistent CHO Labs/Tests A1c 5.3 per Hx and physical Pertinent Medications Reviewed Height 5 ft 1 in Weight 52.9 kg [place] Body Weight (kg) 47.72 BMI 22.0 Subjective/Other Information Consulted for DM diet education. Reviewed DM diet education to prevention development of prediabetes. Gave handout. #1 Nutrition Diagnosis Food and nutrition-related knowledge deficit Etiology lack of prior education As Evidenced by Signs and Symptoms no prior knowledge of need for food and nutrition recommendations Nutrition Intervention Teaching Recipient Patient Learning Readiness Good Teaching Methods Discussion,Handout Response to Teaching Verbalize understanding Education Handouts Provided Carbohydrate Counting for People with Diabetes Barriers to Learning No Barriers RD phone number provided Yes Patient aware of follow up options Yes Goal #1 Utilize carbohydrate counting Revisit per MD consult or patient Sign Off request:
[2019-02-05] MEDS: HumaLOG SUB-Q SCH ×3 (08:53→16:58)
[2019-02-05] MEDS: MIRALAX 3350 PO SCH (08:55)
[2019-02-05] MEDS: LOVENOX SUB-Q SCH (08:55)
[2019-02-05] MEDS: NORVASC PO SCH (08:55)
[2019-02-05] MEDS: ECOTRIN PO SCH (08:55)
--- NOTE | 2019-02-05 14:08 | Progress Note ---
Assessment and Plan Assessment and plan: --Hypertension; well controlled Continue amlodipine, PRN hydralazine --Type 2 diabetes mellitus; low range blood sugars Glipizide discontinued ,A1c 9.7, encourage oral nutrition --Dyslipidemia; on statin, low cholesterol diet --Mild/moderate malnutrition hypoalbuminemia; nutrition supplements --History of CVA; with right-sided weakness/dysarthria Not a candidate for TPA or thrombectomy PT,OT,ST and rehab --DVT prophylaxis; Lovenox --Full code Plan of care reviewed with the patient and her nurse History Interval history: Patient seen and examined medical records reviewed Patient feels better and did not like the food Alert awake oriented dysarthria Vital signs noted, Hospitalist Physical - Constitutional Vitals: Temp Pulse Resp BP Pulse Ox 98.9 F 65 16 140/82 97 02/05/19 11:00 02/05/19 11:00 02/05/19 11:00 02/05/19 11:00 02/05/19 11:00 General appearance: Present: no acute distress, well-nourished - EENT Eyes: Present: PERRL, EOM intact - Neck Neck: Present: supple, normal ROM - Respiratory Respiratory effort: normal Respiratory: negative: rales, rhonchi, wheezing - Cardiovascular Rhythm: regular Heart Sounds: Present: S1 & S2 - Extremities Extremities: no ischemia, No edema - Abdominal General gastrointestinal: soft, non-tender, non-distended, normal bowel sounds - Integumentary Integumentary: Present: clear, warm - Psychiatric Psychiatric: appropriate mood/affect, cooperative - Neurologic Neurologic: other (dysarthria and residual weakness) Results - Labs CBC & Chem 7: 01/27/19 05:12 01/29/19 07:26 Labs: Laboratory Last Values WBC 4.1 K/mm3 (4.5-11.0) L 01/27/19 05:12 RBC 3.85 M/mm3 (3.65-5.03) 01/27/19 05:12 Hgb 10.6 gm/dl (10.1-14.3) 01/27/19 05:12 Hct 32.5 % (30.3-42.9) 01/27/19 05:12 MCV 84 fl (79-97) 01/27/19 05:12 MCH 28 pg (28-32) 01/27/19 05:12 MCHC 33 % (30-34) 01/27/19 05:12 RDW 14.3 % (13.2-15.2) 01/27/19 05:12 Plt Count 175 K/mm3 (140-440) 01/27/19 05:12 Lymph % (Auto) 54.4 % (13.4-35.0) H 01/27/19 05:12 [place] % (Auto) 6.7 % (0.0-7.3) 01/27/19 05:12 Eos % (Auto) 3.0 % (0.0-4.3) 01/27/19 05:12 Baso % (Auto) 0.6 % (0.0-1.8) 01/27/19 05:12 Lymph # 2.2 K/mm3 (1.2-5.4) 01/27/19 05:12 [place] # 0.3 K/mm3 (0.0-0.8) 01/27/19 05:12 Eos # 0.1 K/mm3 (0.0-0.4) 01/27/19 05:12 Baso # 0.0 K/mm3 (0.0-0.1) 01/27/19 05:12 Seg Neutrophils % 35.3 % (40.0-70.0) L 01/27/19 05:12 Seg Neutrophils # 1.5 K/mm3 (1.8-7.7) L 01/27/19 05:12 Sodium 143 mmol/L (137-145) 01/29/19 07:26 Potassium 4.1 mmol/L (3.6-5.0) 01/29/19 07:26 Chloride 110.0 mmol/L (98-107) H 01/29/19 07:26 Carbon Dioxide 23 mmol/L (22-30) 01/29/19 07:26 Anion Gap 14 mmol/L 01/29/19 07:26 BUN 19 mg/dL (7-17) H 01/29/19 07:26 Creatinine 1.0 mg/dL (0.7-1.2) 01/29/19 07:26 Estimated GFR > 60 ml/min 01/29/19 07:26 BUN/Creatinine Ratio 19 % 01/29/19 07:26 Glucose 125 mg/dL (65-100) H 01/29/19 07:26 POC Glucose 184 (70-105) H 02/05/19 11:46 Calcium 9.1 mg/dL (8.4-10.2) 01/29/19 07:26 Magnesium 1.90 mg/dL (1.7-2.3) 01/29/19 07:26 Total Bilirubin 0.20 mg/dL (0.1-1.2) 01/27/19 05:12 AST 11 units/L (5-40) 01/27/19 05:12 ALT 6 units/L (7-56) L 01/27/19 05:12 Alkaline Phosphatase 63 units/L (35-129) 01/27/19 05:12 Total Protein 5.9 g/dL (6.3-8.2) L 01/27/19 05:12 Albumin 3.4 g/dL (3.9-5) L 01/27/19 05:12 Albumin/Globulin Ratio 1.4 % 01/27/19 05:12 Prealbumin 0.225 g/L (0.200-0.400) 01/29/19 07:26 Triglycerides 85 mg/dL (2-149) 01/27/19 05:12 Cholesterol 112 mg/dL (50-199) 01/27/19 05:12 LDL Cholesterol Direct 56 mg/dL (50-130) 01/27/19 05:12 HDL Cholesterol 49 mg/dL (40-59) 01/27/19 05:12 Cholesterol/HDL Ratio 2.28 % 01/27/19 05:12 Active Medications - Current Medications Current Medications: Generic Name Dose Route Start Last Admin Trade Name Freq PRN Reason Stop Dose Admin Acetaminophen 650 mg 01/26/19 19:12 Tylenol PO Q4H PRN Pain MILD(1-3)/Fever >100.5/ARCHER Amlodipine Besylate 10 mg 02/05/19 08:00 02/05/19 08:55 Norvasc PO 10 mg QDAY BAY Administration Aspirin 325 mg 01/27/19 08:00 02/05/19 08:55 Ecotrin PO 325 mg QDAY BAY Administration Atorvastatin Calcium 40 mg 01/26/19 21:00 02/04/19 22:16 Lipitor PO 40 mg QHS BAY Administration Bisacodyl 10 mg 01/26/19 19:12 Dulcolax [place] QDAY PRN Constipation unrelieved by MOM Dextrose 50 ml 01/26/19 19:12 D50w (25gm) Syringe IV PRN PRN Hypoglycemia Enoxaparin Sodium 40 mg 01/27/19 08:00 02/05/19 08:55 Lovenox SUB-Q 40 mg QDAY BAY Administration Insulin Human Lispro 0 unit 01/26/19 22:00 02/05/19 13:57 Humalog SUB-Q 2 unit ACHS BAY Administration Protocol Magnesium Hydroxide 30 ml 01/26/19 19:12 Milk Of Magnesia PO Q4H PRN Constipation Polyethylene Glycol 17 gm 01/27/19 08:00 02/05/19 08:55 Miralax 3350 PO 17 gm QDAY BAY Administration Nutrition/Malnutrition Assess - Dietary Evaluation Nutrition/Malnutrition Findings: Nutrition Notes Start: 01/27/19 12:34 Freq: Status: Active Protocol: Document 01/27/19 12:34 RM (Rec: 01/27/19 12:39 RM [id number]) Nutrition Notes Need for Assessment generated from: MD Order Initial or Follow up Assessment Current Diagnosis Diabetes,Hypertension, Hyperlipidemia Other Pertinent Diagnosis Hx multiple CVAs Current Diet Consistent CHO Labs/Tests A1c 5.3 per Hx and physical Pertinent Medications Reviewed Height 5 ft 1 in Weight 52.9 kg [place] Body Weight (kg) 47.72 BMI 22.0 Subjective/Other Information Consulted for DM diet education. Reviewed DM diet education to prevention development of prediabetes. Gave handout. #1 Nutrition Diagnosis Food and nutrition-related knowledge deficit Etiology lack of prior education As Evidenced by Signs and Symptoms no prior knowledge of need for food and nutrition recommendations Nutrition Intervention Teaching Recipient Patient Learning Readiness Good Teaching Methods Discussion,Handout Response to Teaching Verbalize understanding Education Handouts Provided Carbohydrate Counting for People with Diabetes Barriers to Learning No Barriers RD phone number provided Yes Patient aware of follow up options Yes Goal #1 Utilize carbohydrate counting Revisit per MD consult or patient Sign Off request:
[2019-02-06] MEDS: HumaLOG SUB-Q SCH ×5 (05:35→22:36)
[2019-02-06] MEDS: NORVASC PO SCH (08:55)
[2019-02-06] MEDS: ECOTRIN PO SCH (08:55)
[2019-02-06] MEDS: LOVENOX SUB-Q SCH (08:55)
[2019-02-06] MEDS: MIRALAX 3350 PO SCH (08:56)
--- NOTE | 2019-02-06 11:06 | Progress Note ---
Assessment and Plan Assessment and plan: --Hypertension; well controlled Continue amlodipine, PRN hydralazine --Type 2 diabetes mellitus; low range blood sugars Glipizide discontinued ,A1c 9.7, encourage oral nutrition --Dyslipidemia; on statin, low cholesterol diet --Mild/moderate malnutrition hypoalbuminemia; nutrition supplements --History of CVA; with right-sided weakness/dysarthria Not a candidate for TPA or thrombectomy PT,OT,ST and rehab --DVT prophylaxis; Lovenox --Full code Plan of care reviewed with the patient and her nurse History Interval history: Patient seen and examined medical records reviewed Feels slightly better no new complaints Alert and awake Vital signs reviewed Hospitalist Physical - Constitutional Vitals: Temp Pulse Resp BP Pulse Ox 98.3 F 54 L 16 140/80 99 02/06/19 07:20 02/06/19 07:20 02/06/19 07:20 02/06/19 08:55 02/06/19 07:20 General appearance: Present: no acute distress, well-nourished - EENT Eyes: Present: PERRL, EOM intact - Neck Neck: Present: supple, normal ROM - Respiratory Respiratory effort: normal Respiratory: bilateral: diminished, negative: rales, rhonchi, wheezing - Cardiovascular Rhythm: regular Heart Sounds: Present: S1 & S2 - Extremities Extremities: no ischemia, No edema - Abdominal General gastrointestinal: soft, non-tender, non-distended, normal bowel sounds - Integumentary Integumentary: Present: clear, warm - Psychiatric Psychiatric: appropriate mood/affect, cooperative - Neurologic Neurologic: CNII-XII intact, moves all extremities Results - Labs CBC & Chem 7: 01/27/19 05:12 01/29/19 07:26 Labs: Laboratory Last Values WBC 4.1 K/mm3 (4.5-11.0) L 01/27/19 05:12 RBC 3.85 M/mm3 (3.65-5.03) 01/27/19 05:12 Hgb 10.6 gm/dl (10.1-14.3) 01/27/19 05:12 Hct 32.5 % (30.3-42.9) 01/27/19 05:12 MCV 84 fl (79-97) 01/27/19 05:12 MCH 28 pg (28-32) 01/27/19 05:12 MCHC 33 % (30-34) 01/27/19 05:12 RDW 14.3 % (13.2-15.2) 01/27/19 05:12 Plt Count 175 K/mm3 (140-440) 01/27/19 05:12 Lymph % (Auto) 54.4 % (13.4-35.0) H 01/27/19 05:12 [place] % (Auto) 6.7 % (0.0-7.3) 01/27/19 05:12 Eos % (Auto) 3.0 % (0.0-4.3) 01/27/19 05:12 Baso % (Auto) 0.6 % (0.0-1.8) 01/27/19 05:12 Lymph # 2.2 K/mm3 (1.2-5.4) 01/27/19 05:12 [place] # 0.3 K/mm3 (0.0-0.8) 01/27/19 05:12 Eos # 0.1 K/mm3 (0.0-0.4) 01/27/19 05:12 Baso # 0.0 K/mm3 (0.0-0.1) 01/27/19 05:12 Seg Neutrophils % 35.3 % (40.0-70.0) L 01/27/19 05:12 Seg Neutrophils # 1.5 K/mm3 (1.8-7.7) L 01/27/19 05:12 Sodium 143 mmol/L (137-145) 01/29/19 07:26 Potassium 4.1 mmol/L (3.6-5.0) 01/29/19 07:26 Chloride 110.0 mmol/L (98-107) H 01/29/19 07:26 Carbon Dioxide 23 mmol/L (22-30) 01/29/19 07:26 Anion Gap 14 mmol/L 01/29/19 07:26 BUN 19 mg/dL (7-17) H 01/29/19 07:26 Creatinine 1.0 mg/dL (0.7-1.2) 01/29/19 07:26 Estimated GFR > 60 ml/min 01/29/19 07:26 BUN/Creatinine Ratio 19 % 01/29/19 07:26 Glucose 125 mg/dL (65-100) H 01/29/19 07:26 POC Glucose 107 (70-105) H 02/05/19 21:38 Calcium 9.1 mg/dL (8.4-10.2) 01/29/19 07:26 Magnesium 1.90 mg/dL (1.7-2.3) 01/29/19 07:26 Total Bilirubin 0.20 mg/dL (0.1-1.2) 01/27/19 05:12 AST 11 units/L (5-40) 01/27/19 05:12 ALT 6 units/L (7-56) L 01/27/19 05:12 Alkaline Phosphatase 63 units/L (35-129) 01/27/19 05:12 Total Protein 5.9 g/dL (6.3-8.2) L 01/27/19 05:12 Albumin 3.4 g/dL (3.9-5) L 01/27/19 05:12 Albumin/Globulin Ratio 1.4 % 01/27/19 05:12 Prealbumin 0.225 g/L (0.200-0.400) 01/29/19 07:26 Triglycerides 85 mg/dL (2-149) 01/27/19 05:12 Cholesterol 112 mg/dL (50-199) 01/27/19 05:12 LDL Cholesterol Direct 56 mg/dL (50-130) 01/27/19 05:12 HDL Cholesterol 49 mg/dL (40-59) 01/27/19 05:12 Cholesterol/HDL Ratio 2.28 % 01/27/19 05:12 Active Medications - Current Medications Current Medications: Generic Name Dose Route Start Last Admin Trade Name Freq PRN Reason Stop Dose Admin Acetaminophen 650 mg 01/26/19 19:12 Tylenol PO Q4H PRN Pain MILD(1-3)/Fever >100.5/ARCHER Amlodipine Besylate 10 mg 02/05/19 08:00 02/06/19 08:55 Norvasc PO 10 mg QDAY BAY Administration Aspirin 325 mg 01/27/19 08:00 02/06/19 08:55 Ecotrin PO 325 mg QDAY BAY Administration Atorvastatin Calcium 40 mg 01/26/19 21:00 02/05/19 21:38 Lipitor PO 40 mg QHS BAY Administration Bisacodyl 10 mg 01/26/19 19:12 Dulcolax [place] QDAY PRN Constipation unrelieved by MOM Dextrose 50 ml 01/26/19 19:12 D50w (25gm) Syringe IV PRN PRN Hypoglycemia Enoxaparin Sodium 40 mg 01/27/19 08:00 02/06/19 08:55 Lovenox SUB-Q 40 mg QDAY BAY Administration Insulin Human Lispro 0 unit 01/26/19 22:00 02/06/19 07:50 Humalog SUB-Q Not Given ACHS [facility] Protocol Magnesium Hydroxide 30 ml 01/26/19 19:12 Milk Of Magnesia PO Q4H PRN Constipation Polyethylene Glycol 17 gm 01/27/19 08:00 02/06/19 08:56 Miralax 3350 PO 17 gm QDAY BAY Administration Nutrition/Malnutrition Assess - Dietary Evaluation Nutrition/Malnutrition Findings: Nutrition Notes Start: 01/27/19 12:34 Freq: Status: Active Protocol: Document 01/27/19 12:34 RM (Rec: 01/27/19 12:39 RM [id number]) Nutrition Notes Need for Assessment generated from: MD Order Initial or Follow up Assessment Current Diagnosis Diabetes,Hypertension, Hyperlipidemia Other Pertinent Diagnosis Hx multiple CVAs Current Diet Consistent CHO Labs/Tests A1c 5.3 per Hx and physical Pertinent Medications Reviewed Height 5 ft 1 in Weight 52.9 kg [place] Body Weight (kg) 47.72 BMI 22.0 Subjective/Other Information Consulted for DM diet education. Reviewed DM diet education to prevention development of prediabetes. Gave handout. #1 Nutrition Diagnosis Food and nutrition-related knowledge deficit Etiology lack of prior education As Evidenced by Signs and Symptoms no prior knowledge of need for food and nutrition recommendations Nutrition Intervention Teaching Recipient Patient Learning Readiness Good Teaching Methods Discussion,Handout Response to Teaching Verbalize understanding Education Handouts Provided Carbohydrate Counting for People with Diabetes Barriers to Learning No Barriers RD phone number provided Yes Patient aware of follow up options Yes Goal #1 Utilize carbohydrate counting Revisit per MD consult or patient Sign Off request:
[2019-02-07] MEDS: HumaLOG SUB-Q SCH ×4 (08:11→22:53)
[2019-02-07] MEDS: ECOTRIN PO SCH (08:20)
[2019-02-07] MEDS: MIRALAX 3350 PO SCH (08:20)
[2019-02-07] MEDS: NORVASC PO SCH (08:20)
[2019-02-07] MEDS: LOVENOX SUB-Q SCH (08:21)
--- NOTE | 2019-02-07 19:27 | Progress Note ---
Assessment and Plan Assessment and plan: --History of CVA; with right-sided weakness/dysarthria Not a candidate for TPA or thrombectomy PT,OT,ST and rehab --Hypertension; well controlled Continue amlodipine, PRN hydralazine --Type 2 diabetes mellitus; low range blood sugars Glipizide discontinued ,A1c 9.7, encourage oral nutrition --Dyslipidemia; on statin, low cholesterol diet --Mild/moderate malnutrition hypoalbuminemia; nutrition supplements --DVT prophylaxis; Lovenox --Full code Plan of care reviewed with the patient and her nurse History Interval history: Patient seen and examined this afternoon medical records reviewed Patient was Easily awakens no new complaints Vital signs stable Hospitalist Physical - Constitutional Vitals: Temp Pulse Resp BP Pulse Ox 98.7 F 80 19 120/86 99 02/07/19 15:30 02/07/19 15:30 02/07/19 15:30 02/07/19 15:30 02/07/19 15:30 General appearance: Present: no acute distress, well-nourished - EENT Eyes: Present: PERRL, EOM intact - Neck Neck: Present: supple, normal ROM - Respiratory Respiratory effort: normal Respiratory: negative: rales, rhonchi, wheezing - Cardiovascular Rhythm: regular Heart Sounds: Present: S1 & S2 - Extremities Extremities: no ischemia, No edema - Abdominal General gastrointestinal: soft, non-tender, non-distended, normal bowel sounds - Integumentary Integumentary: Present: clear, warm - Psychiatric Psychiatric: appropriate mood/affect, cooperative - Neurologic Neurologic: other (facial weakness, mild dysarthria and residual weakness) Results - Labs CBC & Chem 7: 01/27/19 05:12 01/29/19 07:26 Labs: Laboratory Last Values WBC 4.1 K/mm3 (4.5-11.0) L 01/27/19 05:12 RBC 3.85 M/mm3 (3.65-5.03) 01/27/19 05:12 Hgb 10.6 gm/dl (10.1-14.3) 01/27/19 05:12 Hct 32.5 % (30.3-42.9) 01/27/19 05:12 MCV 84 fl (79-97) 01/27/19 05:12 MCH 28 pg (28-32) 01/27/19 05:12 MCHC 33 % (30-34) 01/27/19 05:12 RDW 14.3 % (13.2-15.2) 01/27/19 05:12 Plt Count 175 K/mm3 (140-440) 01/27/19 05:12 Lymph % (Auto) 54.4 % (13.4-35.0) H 01/27/19 05:12 [place] % (Auto) 6.7 % (0.0-7.3) 01/27/19 05:12 Eos % (Auto) 3.0 % (0.0-4.3) 01/27/19 05:12 Baso % (Auto) 0.6 % (0.0-1.8) 01/27/19 05:12 Lymph # 2.2 K/mm3 (1.2-5.4) 01/27/19 05:12 [place] # 0.3 K/mm3 (0.0-0.8) 01/27/19 05:12 Eos # 0.1 K/mm3 (0.0-0.4) 01/27/19 05:12 Baso # 0.0 K/mm3 (0.0-0.1) 01/27/19 05:12 Seg Neutrophils % 35.3 % (40.0-70.0) L 01/27/19 05:12 Seg Neutrophils # 1.5 K/mm3 (1.8-7.7) L 01/27/19 05:12 Sodium 143 mmol/L (137-145) 01/29/19 07:26 Potassium 4.1 mmol/L (3.6-5.0) 01/29/19 07:26 Chloride 110.0 mmol/L (98-107) H 01/29/19 07:26 Carbon Dioxide 23 mmol/L (22-30) 01/29/19 07:26 Anion Gap 14 mmol/L 01/29/19 07:26 BUN 19 mg/dL (7-17) H 01/29/19 07:26 Creatinine 1.0 mg/dL (0.7-1.2) 01/29/19 07:26 Estimated GFR > 60 ml/min 01/29/19 07:26 BUN/Creatinine Ratio 19 % 01/29/19 07:26 Glucose 125 mg/dL (65-100) H 01/29/19 07:26 POC Glucose 120 (70-105) H 02/07/19 15:44 Calcium 9.1 mg/dL (8.4-10.2) 01/29/19 07:26 Magnesium 1.90 mg/dL (1.7-2.3) 01/29/19 07:26 Total Bilirubin 0.20 mg/dL (0.1-1.2) 01/27/19 05:12 AST 11 units/L (5-40) 01/27/19 05:12 ALT 6 units/L (7-56) L 01/27/19 05:12 Alkaline Phosphatase 63 units/L (35-129) 01/27/19 05:12 Total Protein 5.9 g/dL (6.3-8.2) L 01/27/19 05:12 Albumin 3.4 g/dL (3.9-5) L 01/27/19 05:12 Albumin/Globulin Ratio 1.4 % 01/27/19 05:12 Prealbumin 0.225 g/L (0.200-0.400) 01/29/19 07:26 Triglycerides 85 mg/dL (2-149) 01/27/19 05:12 Cholesterol 112 mg/dL (50-199) 01/27/19 05:12 LDL Cholesterol Direct 56 mg/dL (50-130) 01/27/19 05:12 HDL Cholesterol 49 mg/dL (40-59) 01/27/19 05:12 Cholesterol/HDL Ratio 2.28 % 01/27/19 05:12 Active Medications - Current Medications Current Medications: Generic Name Dose Route Start Last Admin Trade Name Freq PRN Reason Stop Dose Admin Acetaminophen 650 mg 01/26/19 19:12 Tylenol PO Q4H PRN Pain MILD(1-3)/Fever >100.5/ARCHER Amlodipine Besylate 10 mg 02/05/19 08:00 02/07/19 08:20 Norvasc PO 10 mg QDAY BYA Administration Aspirin 325 mg 01/27/19 08:00 02/07/19 08:20 Ecotrin PO 325 mg QDAY BAY Administration Atorvastatin Calcium 40 mg 01/26/19 21:00 02/06/19 23:00 Lipitor PO 40 mg QHS BAY Administration Bisacodyl 10 mg 01/26/19 19:12 Dulcolax [place] QDAY PRN Constipation unrelieved by MOM Dextrose 50 ml 01/26/19 19:12 D50w (25gm) Syringe IV PRN PRN Hypoglycemia Enoxaparin Sodium 40 mg 01/27/19 08:00 02/07/19 08:21 Lovenox SUB-Q 40 mg QDAY BAY Administration Insulin Human Lispro 0 unit 01/26/19 22:00 02/07/19 17:31 Humalog SUB-Q Not Given ACHS [facility] Protocol Magnesium Hydroxide 30 ml 01/26/19 19:12 Milk Of Magnesia PO Q4H PRN Constipation Polyethylene Glycol 17 gm 01/27/19 08:00 02/07/19 08:20 Miralax 3350 PO 17 gm QDAY BAY Administration Nutrition/Malnutrition Assess - Dietary Evaluation Nutrition/Malnutrition Findings: Nutrition Notes Start: 01/27/19 12:34 Freq: Status: Active Protocol: Document 01/27/19 12:34 RM (Rec: 01/27/19 12:39 RM [id number]) Nutrition Notes Need for Assessment generated from: MD Order Initial or Follow up Assessment Current Diagnosis Diabetes,Hypertension, Hyperlipidemia Other Pertinent Diagnosis Hx multiple CVAs Current Diet Consistent CHO Labs/Tests A1c 5.3 per Hx and physical Pertinent Medications Reviewed Height 5 ft 1 in Weight 52.9 kg [place] Body Weight (kg) 47.72 BMI 22.0 Subjective/Other Information Consulted for DM diet education. Reviewed DM diet education to prevention development of prediabetes. Gave handout. #1 Nutrition Diagnosis Food and nutrition-related knowledge deficit Etiology lack of prior education As Evidenced by Signs and Symptoms no prior knowledge of need for food and nutrition recommendations Nutrition Intervention Teaching Recipient Patient Learning Readiness Good Teaching Methods Discussion,Handout Response to Teaching Verbalize understanding Education Handouts Provided Carbohydrate Counting for People with Diabetes Barriers to Learning No Barriers RD phone number provided Yes Patient aware of follow up options Yes Goal #1 Utilize carbohydrate counting Revisit per MD consult or patient Sign Off request:
[2019-02-08] MEDS: HumaLOG SUB-Q SCH ×4 (08:08→22:10)
[2019-02-08] MEDS: LOVENOX SUB-Q SCH (08:09)
[2019-02-08] MEDS: NORVASC PO SCH (08:09)
[2019-02-08] MEDS: ECOTRIN PO SCH (08:10)
[2019-02-08] MEDS: MIRALAX 3350 PO SCH (08:10)
--- NOTE | 2019-02-08 14:16 | Progress Note ---
Assessment and Plan Assessment and plan: 64-year-old female patient recently diagnosed acute left CVA, not a candidate for TPA Right hemiparesis with dysarthria, and acute rehabilitation for PT OT ST and rehabilitation Hospitalists for medical management --History of CVA; with right-sided weakness/dysarthria Not a candidate for TPA or thrombectomy, aspirin and statin Continue PT,OT,ST and rehabilitation --Poor oral intake/moderate malnutrition and hypoalbuminemia Encourage patient to increase her nutrition, nutritional supplements --Hypertension; well controlled Continue amlodipine, PRN hydralazine --Type 2 DM; glipizide dced due to hypoglycemia. A1c 9.7, SSC, encourage oral nutrition --Dyslipidemia; on statin, low cholesterol diet --Mild/moderate malnutrition hypoalbuminemia; nutrition supplements --DVT prophylaxis; Lovenox --Full code Status Plan of care reviewed with the patient and her nurse History Interval history: Patient seen and examined medical records reviewed Patient tolerated the physical therapy, no new complaints Poor oral intake, patient reports poor appetite Alert and awake mild dysarthria Vital signs noted Hospitalist Physical - Constitutional Vitals: Temp Pulse Resp BP Pulse Ox 98.0 F 66 18 136/78 85 02/08/19 11:21 02/08/19 11:00 02/08/19 11:21 02/08/19 11:21 02/08/19 11:21 General appearance: Present: no acute distress, well-nourished - EENT Eyes: Present: PERRL, EOM intact - Neck Neck: Present: supple, normal ROM - Respiratory Respiratory effort: normal Respiratory: bilateral: diminished, negative: rales, rhonchi, wheezing - Cardiovascular Rhythm: regular Heart Sounds: Present: S1 & S2 - Extremities Extremities: no ischemia, No edema - Abdominal General gastrointestinal: soft, non-tender, non-distended, normal bowel sounds - Integumentary Integumentary: Present: clear, warm - Psychiatric Psychiatric: appropriate mood/affect, cooperative - Neurologic Neurologic: moves all extremities, other (dysarthria, residual right-sided weakness) Results - Labs CBC & Chem 7: 01/27/19 05:12 01/29/19 07:26 Labs: Laboratory Last Values WBC 4.1 K/mm3 (4.5-11.0) L 01/27/19 05:12 RBC 3.85 M/mm3 (3.65-5.03) 01/27/19 05:12 Hgb 10.6 gm/dl (10.1-14.3) 01/27/19 05:12 Hct 32.5 % (30.3-42.9) 01/27/19 05:12 MCV 84 fl (79-97) 01/27/19 05:12 MCH 28 pg (28-32) 01/27/19 05:12 MCHC 33 % (30-34) 01/27/19 05:12 RDW 14.3 % (13.2-15.2) 01/27/19 05:12 Plt Count 175 K/mm3 (140-440) 01/27/19 05:12 Lymph % (Auto) 54.4 % (13.4-35.0) H 01/27/19 05:12 [place] % (Auto) 6.7 % (0.0-7.3) 01/27/19 05:12 Eos % (Auto) 3.0 % (0.0-4.3) 01/27/19 05:12 Baso % (Auto) 0.6 % (0.0-1.8) 01/27/19 05:12 Lymph # 2.2 K/mm3 (1.2-5.4) 01/27/19 05:12 [place] # 0.3 K/mm3 (0.0-0.8) 01/27/19 05:12 Eos # 0.1 K/mm3 (0.0-0.4) 01/27/19 05:12 Baso # 0.0 K/mm3 (0.0-0.1) 01/27/19 05:12 Seg Neutrophils % 35.3 % (40.0-70.0) L 01/27/19 05:12 Seg Neutrophils # 1.5 K/mm3 (1.8-7.7) L 01/27/19 05:12 Sodium 143 mmol/L (137-145) 01/29/19 07:26 Potassium 4.1 mmol/L (3.6-5.0) 01/29/19 07:26 Chloride 110.0 mmol/L (98-107) H 01/29/19 07:26 Carbon Dioxide 23 mmol/L (22-30) 01/29/19 07:26 Anion Gap 14 mmol/L 01/29/19 07:26 BUN 19 mg/dL (7-17) H 01/29/19 07:26 Creatinine 1.0 mg/dL (0.7-1.2) 01/29/19 07:26 Estimated GFR > 60 ml/min 01/29/19 07:26 BUN/Creatinine Ratio 19 % 01/29/19 07:26 Glucose 125 mg/dL (65-100) H 01/29/19 07:26 POC Glucose 135 (70-105) H 02/08/19 11:25 Calcium 9.1 mg/dL (8.4-10.2) 01/29/19 07:26 Magnesium 1.90 mg/dL (1.7-2.3) 01/29/19 07:26 Total Bilirubin 0.20 mg/dL (0.1-1.2) 01/27/19 05:12 AST 11 units/L (5-40) 01/27/19 05:12 ALT 6 units/L (7-56) L 01/27/19 05:12 Alkaline Phosphatase 63 units/L (35-129) 01/27/19 05:12 Total Protein 5.9 g/dL (6.3-8.2) L 01/27/19 05:12 Albumin 3.4 g/dL (3.9-5) L 01/27/19 05:12 Albumin/Globulin Ratio 1.4 % 01/27/19 05:12 Prealbumin 0.225 g/L (0.200-0.400) 01/29/19 07:26 Triglycerides 85 mg/dL (2-149) 01/27/19 05:12 Cholesterol 112 mg/dL (50-199) 01/27/19 05:12 LDL Cholesterol Direct 56 mg/dL (50-130) 01/27/19 05:12 HDL Cholesterol 49 mg/dL (40-59) 01/27/19 05:12 Cholesterol/HDL Ratio 2.28 % 01/27/19 05:12 Active Medications - Current Medications Current Medications: Generic Name Dose Route Start Last Admin Trade Name Freq PRN Reason Stop Dose Admin Acetaminophen 650 mg 01/26/19 19:12 Tylenol PO Q4H PRN Pain MILD(1-3)/Fever >100.5/ARCHER Amlodipine Besylate 10 mg 02/05/19 08:00 02/08/19 08:09 Norvasc PO 10 mg QDAY BAY Administration Aspirin 325 mg 01/27/19 08:00 02/08/19 08:10 Ecotrin PO 325 mg QDAY BAY Administration Atorvastatin Calcium 40 mg 01/26/19 21:00 02/07/19 22:12 Lipitor PO 40 mg QHS BAY Administration Bisacodyl 10 mg 01/26/19 19:12 Dulcolax [place] QDAY PRN Constipation unrelieved by MOM Dextrose 50 ml 01/26/19 19:12 D50w (25gm) Syringe IV PRN PRN Hypoglycemia Enoxaparin Sodium 40 mg 01/27/19 08:00 02/08/19 08:09 Lovenox SUB-Q 40 mg QDAY BAY Administration Insulin Human Lispro 0 unit 01/26/19 22:00 02/08/19 11:40 Humalog SUB-Q Not Given ACHS BAY Protocol Magnesium Hydroxide 30 ml 01/26/19 19:12 Milk Of Magnesia PO Q4H PRN Constipation Polyethylene Glycol 17 gm 01/27/19 08:00 02/08/19 08:10 Miralax 3350 PO 17 gm QDAY BAY Administration Nutrition/Malnutrition Assess - Dietary Evaluation Nutrition/Malnutrition Findings: Nutrition Notes Start: 01/27/19 12:34 Freq: Status: Active Protocol: Document 01/27/19 12:34 RM (Rec: 01/27/19 12:39 RM [email or web address]) Nutrition Notes Need for Assessment generated from: MD Order Initial or Follow up Assessment Current Diagnosis Diabetes,Hypertension, Hyperlipidemia Other Pertinent Diagnosis Hx multiple CVAs Current Diet Consistent CHO Labs/Tests A1c 5.3 per Hx and physical Pertinent Medications Reviewed Height 5 ft 1 in Weight 52.9 kg [place] Body Weight (kg) 47.72 BMI 22.0 Subjective/Other Information Consulted for DM diet education. Reviewed DM diet education to prevention development of prediabetes. Gave handout. #1 Nutrition Diagnosis Food and nutrition-related knowledge deficit Etiology lack of prior education As Evidenced by Signs and Symptoms no prior knowledge of need for food and nutrition recommendations Nutrition Intervention Teaching Recipient Patient Learning Readiness Good Teaching Methods Discussion,Handout Response to Teaching Verbalize understanding Education Handouts Provided Carbohydrate Counting for People with Diabetes Barriers to Learning No Barriers RD phone number provided Yes Patient aware of follow up options Yes Goal #1 Utilize carbohydrate counting Revisit per MD consult or patient Sign Off request:
[2019-02-09] MEDS: HumaLOG SUB-Q SCH ×3 (07:30→18:28)
[2019-02-09] MEDS: NORVASC PO SCH (08:19)
[2019-02-09] MEDS: LOVENOX SUB-Q SCH (08:21)
[2019-02-09] MEDS: MIRALAX 3350 PO SCH (08:21)
[2019-02-09] MEDS: ECOTRIN PO SCH (08:21)
--- NOTE | 2019-02-09 09:45 | Progress Note ---
Subjective Date of service: 02/09/19 Principal diagnosis: CVA Interval history: 64-year-old female who presented to the ED with stroke symptoms. Stated that she had taken a nap and woke up with right facial droop and dysarthria. She was outside the therapeutic window for TPA and was not a candidate for thrombectomy. She was worked up for CVA and the brain MRI showed small left internal capsule lacunar infarct. Hemoglobin A1c at outside hospital was 5.3. She has a history of previous strokes in the past. She and her son state that she had recovered from previous strokes without major residual deficits. She is right hand dominant. She lives with family in a single story home and was previously independent with ADLs. She states is been several days since her last bowel movement. She's been sleeping poorly but declines assistance with medication. Secondary prevention was discussed with her and her son. Stroke prognosis and anticipated recovery time was also discussed. GLU has improved but she does have reduced PO intake compared to home due to food preference, consistency and thickeners. Glipizide discontinued due to hypoglycemia monitor GLU for improvement. Most recent A1c at OSH was 5.3. Encouraged to continue PO fluid intake. Vital signs within normal limits. Patient is participating in therapy and making reasonable progress. Taking rest breaks as needed. +BM. Denies pain, palpitations, dyspnea, cough, N/V or joint pain. Right inattention worse with ambulation but improving. Walked without AD this AM over obstacles. E-Stim being used to improve swallowing ability. Discussed in Team Conference. Continues to improve and working towards ability to go home at [place]. Ambulating with a flynn walker. Dysphagia/dysarthria are major issues. Safety awareness is improving. Supportive family available at discharge. Continue to work towards goals. All records, vitals, labs and medications were reviewed. No other issues per patient, nursing or therapy. Objective - Exam Narrative Exam: MUSCULOSKELETAL SPECIALTY EXAM CONSTITUTIONAL: Well developed, well nourished, appropriately groomed. RIGHT hand dominant. RESPIRATORY: Clear to auscultation bilaterally, no increased work of breathing CARDIOVASCULAR: Regular Rate/ Rhythm, no swelling, edema or tenderness in BUE or BLE. All extremities warm. GI: + bowel sounds, soft, NTTP, nondistended. INTEGUMENTARY: Normal, no lesion, rash, masses or bruising noted in extremities. MUSCULOSKELETAL: BUE and BLE normal without defect, crepitus, subluxation, effusion, arthritic changes or TTP. SA EF WE EE FF FA HF KE ADF EHL APF R 4-/5 4-/5 4-/5 4-/5 4-/5 4-/5 4-/5 4-/5 4-/5 4-/5 4-/5 L 5/5 5/5 5/5 5/5 5/5 5 /5 5/5 5/5 5/5 5/5 5/5 ROM full Tone normal NEURO: CN II - XII intact except Right facial droop Sensation intact in all extremities with extinction present on RLE No tremor noted in 4 extremities. Naming and repetition intact. Follows 2 step commands. Dysarthria present Dysphagia present Some right sided inattention when ambulating. Continue to push for improvement in scanning with walking. POSTURE and GAIT: Sitting posture good. Balance appears fair. Gait slowed, using cane now with improving gait pattern. PSYCH: Alert, orientated x3, affect appears flat. Insight appears intact. - Constitutional Vitals: Vital Signs - 12hr 02/09/19 02/09/19 07:14 08:19 Temperature 36.8 C Pulse Rate 53 L 67 Respiratory 15 Rate Blood Pressure 146/87 132/92 O2 Sat by Pulse 99 Oximetry - Allied health notes Allied health notes reviewed: nursing, PT, ST, OT FIMS assessment as documented by PT/OT/ST: Grooming Patient cleans teeth/dentures: Yes Patient blanco/brushes hair: Yes Patient washes, rinses and Yes dries face: Patient washes, rinses and Yes dries hands: Patient shaves: No Patient applies make-up: No Patient performs (no make-up/ 01/28 (100%) shaving): Grooming FIM Score 5. Supervision ([place] applies toothpaste or opens containers.) Toileting Toileting Device Grab Bar Patient able to: Adjust clothes before Patient able to perform: 2/3 (67%) Toileting FIM Score 3. Moderate Assistance (Patient = 50% or more. Some lifting.) Social interaction/Memory/Problem solving Social Interaction FIM Score 6. Mod. [place] (Mostly appropriate. May need meds. No supv.) Memory FIM Score 4. Minimal Assistance (Recognizes and remembers 75-90%.) Problem Solving FIM Score 4. Minimal Assistance (Solves routine problems 75-90%.) Transfers Mode of Locomotion: Walking Bed/Chair/Wheelchair Transfers 4. Minimal Assistance (Patient = 75% or more. FIM Score Needs touching.) Toilet Transfers FIM Score 4. Minimal Assistance (Patient = 75% or more. Needs touching.) Patient transferred to: Shower Shower Transfers FIM Score 4. Minimal Assistance (Patient = 75% or more. Needs touching.) Locomotion- Stairs Device used on Stairs Handrail/s Number of Stairs Ascended/ 12 Descended Patient used handrail/support: Yes Stairs FIM Score 5. Supervision (12-14 stairs w/ supv. 4-6 stairs independently.) Locomotion- walk/wheelchair Most Frequent Mode of Wheelchair Locomotion: Ambulation Distance 123 Walking FIM Score 3. Moderate Assistance (Patient=50% or more. Lifting. Minimum 150 ft.) Wheelchair Propulsion Distance 150 Wheelchair FIM Score 5. Supervision (Minimum 150 ft. supv./cues or 50 ft. independently.) Eating Eating FIM Score 6. Modified [place] (Special consistency or uses device.) Dressing-Upper body Patient retrieves clothing No items: Patient applies/removes UE No: N/A prosthesis or orthosis: Upper Body Dressing FIM Score 5. Supv./Set-Up ([place] sets out clothes or applies pros./orth.) Dressing-lower body Patient retrieves clothing No items: Patient applies/removes LE No: N/A prosthesis or orthosis: Lower Body Dressing FIM Score 4. Minimal Assistance (Patient = 75% or more. Needs touching.) - Labs CBC & Chem 7: 01/27/19 05:12 01/29/19 07:26 Labs: Laboratory Results - last 72 hr 02/06/19 02/06/19 02/06/19 11:29 16:15 21:03 POC Glucose 113 H 156 H 127 H 02/07/19 02/07/19 02/07/19 07:37 11:24 15:44 POC Glucose 121 H 144 H 120 H 02/07/19 02/08/19 02/08/19 22:34 07:14 11:25 POC Glucose 110 H 108 H 135 H 02/08/19 02/08/19 02/09/19 16:20 22:10 07:22 POC Glucose 97 119 H 116 H Assessment and Plan I69.351 CVA with hemiparesis of the right dominant side: Continue secondary stroke prevention. Monitor for post stroke depression and CRPS. Continue therapy in order to improve stroke recovery. Monitor for change in neurologic function or worsening of stroke symptoms. I69.391 Dysphagia: Continue dysphagia diet and advance as safely able. ACCOUNTING SYSTEMS ANALYST monitor and may use FEES and/or MBS to assess for safe diet upgrade. E-stim if needed. Discussed advancing to thin liquids I69.322 Dysarthria: Continue ACCOUNTING SYSTEMS ANALYST strategies to improve vocalization and are alternative methods of communication if needed. K59.00 Constipation: Start MiraLAX monitor for improvement. Bisacodyl supp prn Z73.6 ADL dysfunction: OT will work on improving ability to perform ADLs (including assistive devices) to increase independence and decrease caregiver burden and improve functional transfers and mobility training. R26.2 Difficulty walking: PT will work on gait training and proper use of assistive devices and advance as appropriate to use of stairs and outside ambulation on uneven surfaces. R26.81 Unsteadiness on feet: PT will work on improving static and dynamic sitting and standing balance as well as proper use of assistive devices to decrease risk of falls. R26.89 Abnormality of gait: PT will work to improve safety and efficiency of gait through neuromotor training and gait training along with instruction on proper use of assistive devices. M62.81 Muscle weakness: PT & OT will work on strengthening exercises to improve functional strength including mixture of closed and open kinetic chain exercises. R53.81 Debility: PT & OT will work on improving overall functional status to improve participation with ADLs, mobility and social involvement. R53.83 Fatigue: PT & OT will work on improving endurance through aerobic exercises and therapeutic activity while monitoring patients tolerance for activity and vital signs as needed. Internal medicine consultation for management of diabetes and hypertension. Appreciate their assistance. BP improving. GLU better DVT ppx: Lovenox Pain: Continue physical modalities in therapy and pain medications as needed to achieve functional pain control. Sleep: Monitor and address as needed. Bowel: Monitor and address as needed. Appetite: Monitor and address as needed. Discharge planning: Pending therapy progress and care plan meeting. Will continue discussion with therapy team, SW, patient and family. Restrictions/ Precautions: Falls, swallow WB status: FWB Functional Hx: ADLs: Independent Cognition: Independent Mobility: No AD Barriers to Discharge: Decreased mobility and ability to perform self care, balance deficits, weakness, dominant hemiparesis, dysphagia and dysarthria Estimated Length of Stay: 14-21 days Discharge Destination: Home with family
--- NOTE | 2019-02-09 14:38 | Progress Note ---
Assessment and Plan --History of CVA; with right-sided weakness/dysarthria Not a candidate for TPA or thrombectomy, aspirin and statin Continue PT,OT,ST and rehabilitation --Poor oral intake/moderate malnutrition and hypoalbuminemia Encourage patient to increase her nutrition, nutritional supplements --Hypertension; well controlled Continue amlodipine, PRN hydralazine --Type 2 DM; glipizide dced due to hypoglycemia. A1c 9.7, SSC, encourage oral nutrition --Dyslipidemia; on statin, low cholesterol diet --Mild/moderate malnutrition hypoalbuminemia; nutrition supplements --DVT prophylaxis; Lovenox --Full code Status Plan of care reviewed with the patient and her nurse Brief History 64-year-old female patient recently diagnosed acute left CVA, not a candidate for TPA Right hemiparesis with dysarthria, and acute rehabilitation for PT OT ST and rehabilitation Hospitalists for medical management Hospitalist Physical General appearance: Present: no acute distress, well-nourished - EENT Eyes: Present: PERRL, EOM intact - Neck Neck: Present: supple, normal ROM - Respiratory Respiratory effort: normal Respiratory: bilateral: diminished, negative: rales, rhonchi, wheezing - Cardiovascular Rhythm: regular Heart Sounds: Present: S1 & S2 - Extremities Extremities: no ischemia, No edema - Abdominal General gastrointestinal: soft, non-tender, non-distended, normal bowel sounds - Integumentary Integumentary: Present: clear, warm - Psychiatric Psychiatric: appropriate mood/affect, cooperative - Neurologic Neurologic: moves all extremities, other (dysarthria, residual right-sided weakness) Subjective Date of service: 02/09/19 Principal diagnosis: CVA Interval history: Patient seen and examined medical records reviewed no new complaints, tolerating diet Alert and awake mild dysarthria Vital signs noted Objective - Constitutional Vitals: Vital Signs - 12hr 02/09/19 02/09/19 02/09/19 07:14 08:19 11:23 Temperature 98.3 F 98 F Pulse Rate 53 L 67 67 Respiratory 15 15 Rate Blood Pressure 146/87 132/92 Blood Pressure 134/85 [Left] O2 Sat by Pulse 99 100 Oximetry - Labs CBC & Chem 7: 01/27/19 05:12 01/29/19 07:26 Labs: Abnormal lab results 02/08/19 02/09/19 Range/Units 22:10 07:22 POC Glucose 119 H 116 H (70-105)
[2019-02-10] MEDS: HumaLOG SUB-Q SCH ×3 (06:32→11:30)
[2019-02-10] MEDS: LOVENOX SUB-Q SCH (07:53)
[2019-02-10] MEDS: MIRALAX 3350 PO SCH (07:53)
[2019-02-10] MEDS: ECOTRIN PO SCH (07:53)
[2019-02-10] MEDS: NORVASC PO SCH (07:54)
--- NOTE | 2019-02-10 16:59 | Progress Note ---
Assessment and Plan --History of CVA; with right-sided weakness/dysarthria Not a candidate for TPA or thrombectomy, aspirin and statin Continue PT,OT,ST and rehabilitation --Poor oral intake/moderate malnutrition and hypoalbuminemia Encourage patient to increase her nutrition, nutritional supplements --Hypertension; well controlled Continue amlodipine, PRN hydralazine --Type 2 DM; glipizide dced due to hypoglycemia. A1c 9.7, SSC, encourage oral nutrition --Dyslipidemia; on statin, low cholesterol diet --Mild/moderate malnutrition hypoalbuminemia; nutrition supplements --DVT prophylaxis; Lovenox --Full code Status Plan of care reviewed with the patient and her nurse Brief History 64-year-old female patient recently diagnosed acute left CVA, not a candidate for TPA Right hemiparesis with dysarthria, and acute rehabilitation for PT OT ST and rehabilitation Hospitalists for medical management Hospitalist Physical General appearance: Present: no acute distress, well-nourished - EENT Eyes: Present: PERRL, EOM intact - Neck Neck: Present: supple, normal ROM - Respiratory Respiratory effort: normal Respiratory: bilateral: diminished, negative: rales, rhonchi, wheezing - Cardiovascular Rhythm: regular Heart Sounds: Present: S1 & S2 - Extremities Extremities: no ischemia, No edema - Abdominal General gastrointestinal: soft, non-tender, non-distended, normal bowel sounds - Integumentary Integumentary: Present: clear, warm - Psychiatric Psychiatric: appropriate mood/affect, cooperative - Neurologic Neurologic: moves all extremities, other (dysarthria, residual right-sided weakness) Subjective Date of service: 02/10/19 Principal diagnosis: CVA Interval history: Patient seen and examined medical records reviewed no new complaints, tolerating diet Alert and awake mild dysarthria Vital signs noted Objective - Constitutional Vitals: Vital Signs - 12hr 02/10/19 02/10/19 02/10/19 07:13 07:54 11:01 Temperature 98.5 F 98.3 F Pulse Rate 98 H 70 63 Respiratory 16 18 Rate Blood Pressure 129/92 129/92 128/82 O2 Sat by Pulse 99 100 Oximetry 02/10/19 16:01 Temperature Pulse Rate 59 L Respiratory Rate Blood Pressure O2 Sat by Pulse 100 Oximetry - Labs CBC & Chem 7: 01/27/19 05:12 01/29/19 07:26 Labs: Abnormal lab results 02/09/19 02/09/19 02/09/19 Range/Units 11:08 16:43 21:37 POC Glucose 166 H 112 H 106 H (70-105) 02/10/19 02/10/19 Range/Units 07:23 11:02 POC Glucose 128 H 161 H (70-105)
[2019-02-11] MEDS: HumaLOG SUB-Q SCH ×3 (08:11→17:24)
[2019-02-11] MEDS: LOVENOX SUB-Q SCH (11:27)
[2019-02-11] MEDS: MIRALAX 3350 PO SCH (11:27)
[2019-02-11] MEDS: NORVASC PO SCH (11:27)
[2019-02-11] MEDS: ECOTRIN PO SCH (11:27)
--- NOTE | 2019-02-11 11:31 | Progress Note ---
Subjective Date of service: 02/11/19 Principal diagnosis: CVA Interval history: 64-year-old female who presented to the ED with stroke symptoms. Stated that she had taken a nap and woke up with right facial droop and dysarthria. She was outside the therapeutic window for TPA and was not a candidate for thrombectomy. She was worked up for CVA and the brain MRI showed small left internal capsule lacunar infarct. Hemoglobin A1c at outside hospital was 5.3. She has a history of previous strokes in the past. She and her son state that she had recovered from previous strokes without major residual deficits. She is right hand dominant. She lives with family in a single story home and was previously independent with ADLs. She states is been several days since her last bowel movement. She's been sleeping poorly but declines assistance with medication. Secondary prevention was discussed with her and her son. Stroke prognosis and anticipated recovery time was also discussed. GLU ok. Most recent A1c at OSH was 5.3. Will need to follow up with PCP at [facility] to reassess need for restarting glipizide. Has been ok off of medication but she may change eating habits once she is home. Encouraged to continue PO fluid intake. Vital signs within normal limits. Patient is participating in therapy and making reasonable progress. Taking rest breaks as n eeded. +BM. Denies pain, palpitations, dyspnea, cough, N/V or joint pain. Right inattention worse with ambulation but improving. E-Stim being used to improve swallowing ability. All records, vitals, labs and medications were reviewed. No other issues per patient, nursing or therapy. Objective - Exam Narrative Exam: MUSCULOSKELETAL SPECIALTY EXAM CONSTITUTIONAL: Well developed, well nourished, appropriately groomed. RIGHT hand dominant. RESPIRATORY: Clear to auscultation bilaterally, no increased work of breathing CARDIOVASCULAR: Regular Rate/ Rhythm, no swelling, edema or tenderness in BUE or BLE. All extrem ities warm. GI: + bowel sounds, soft, NTTP, nondistended. INTEGUMENTARY: Normal, no lesion, rash, masses or bruising noted in extremities. MUSCULOSKELETAL: BUE and BLE normal without defect, crepitus, subluxation, effusion, arthritic changes or TTP. SA EF WE EE FF FA HF KE ADF EHL APF R 4-/5 4-/5 4-/5 4-/5 4-/5 4-/5 4-/5 4-/5 4-/5 4-/5 4-/5 L 5/5 5/5 5/5 5/5 5/5 5 /5 5/5 5/5 5/5 5/5 5/5 ROM full Tone normal NEURO: CN II - XII intact except Right facial droop Sensation intact in all extremities with extinction present on RLE No tremor noted in 4 extremities. Naming and repetition intact. Follows 2 step commands. Dysarthria present Dysphagia present Some right sided inattention when ambulating. Continue to push for improvement in scanning with walking. POSTURE and GAIT: Sitting posture good. Balance appears fair. Gait slowed, using cane now with improving gait pattern. PSYCH: Alert, orientated x3, affect appears flat. Insight appears intact. - Constitutional Vitals: Vital Signs - 12hr 02/11/19 02/11/19 02/11/19 07:30 07:52 07:53 Temperature 36.9 C 36.9 C Pulse Rate 63 65 61 Respiratory 18 18 Rate Blood Pressure 149/87 Blood Pressure 149/87 [Left] O2 Sat by Pulse 100 100 Oximetry - Allied health notes Allied health notes reviewed: nursing, PT, ST, OT FIMS assessment as documented by PT/OT/ST: Grooming Patient cleans teeth/dentures: Yes Patient blanco/brushes hair: Yes Patient washes, rinses and Yes dries face: Patient washes, rinses and Yes dries hands: Patient shaves: No Patient applies make-up: No Patient performs (no make-up/ 3/4 (75%) shaving): Patient performs (w/ make-up/ 3/5 (60%) shaving): Grooming FIM Score 5. Supervision ([place] applies toothpaste or opens containers.) Toileting Toileting Device Grab Bar Patient able to: Adjust clothes before Patient able to perform: 2/3 (67%) Toileting FIM Score 3. Moderate Assistance (Patient = 50% or more. Some lifting.) Social interaction/Memory/Problem solving Social Interaction FIM Score 5. Supervision (Needs supv. <10%. Needs encouragement to participate.) Memory FIM Score 5. Supervision (Needs cueing <10%, stressful/ unfamiliar situations.) Problem Solving FIM Score 5. Supervision (Needs cueing <10% to solve routine problems.) Transfers Mode of Locomotion: Wheelchair Bed/Chair/Wheelchair Transfers 5. Supervision (Needs supv. or set-up for FIM Score sliding board, foot rests.) Toilet Transfers FIM Score 4. Minimal Assistance (Patient = 75% or more. Needs touching.) Patient transferred to: Shower Shower Transfers FIM Score 4. Minimal Assistance (Patient = 75% or more. Needs touching.) Locomotion- Stairs Device used on Stairs Handrail/s Number of Stairs Ascended/ 12 Descended Patient used handrail/support: Yes Stairs FIM Score 5. Supervision (12-14 stairs w/ supv. 4-6 stairs independently.) Locomotion- walk/wheelchair Most Frequent Mode of Wheelchair Locomotion: Ambulation Distance 340 Walking FIM Score 4. Minimal Assistance (Patient = 75% or more. Minimum of 150 ft.) Wheelchair Propulsion Distance 150 Wheelchair FIM Score 5. Supervision (Minimum 150 ft. supv./cues or 50 ft. independently.) Eating Eating FIM Score 5. Supervision/Set-Up (Needs help w/ containers, cutting meat, etc.) Dressing-Upper body Patient retrieves clothing Yes items: Patient applies/removes UE No: N/A prosthesis or orthosis: Upper Body Dressing FIM Score 5. Supv./Set-Up ([place] sets out clothes or applies pros./orth.) Dressing-lower body Patient retrieves clothing Yes items: Patient applies/removes LE No: N/A prosthesis or orthosis: Lower Body Dressing FIM Score 5. Supv./Set-Up ([place] sets out clothes or applies pros./orth.) - Labs CBC & Chem 7: 01/27/19 05:12 01/29/19 07:26 Labs: Laboratory Results - last 72 hr 02/08/19 02/08/19 02/08/19 11:25 16:20 22:10 POC Glucose 135 H 97 119 H 02/09/19 02/09/19 02/09/19 07:22 11:08 16:43 POC Glucose 116 H 166 H 112 H 02/09/19 02/10/19 02/10/19 21:37 07:23 11:02 POC Glucose 106 H 128 H 161 H 02/10/19 02/10/19 02/11/19 18:16 21:20 07:28 POC Glucose 79 158 H 113 H Assessment and Plan I69.351 CVA with hemiparesis of the right dominant side: Continue secondary stroke prevention. Monitor for post stroke depression and CRPS. Continue therapy in order to improve stroke recovery. Monitor for change in neurologic function or worsening of stroke symptoms. I69.391 Dysphagia: Continue dysphagia diet and advance as safely able. [employer] monitor and may use FEES and/or MBS to assess for safe diet upgrade. E-stim if needed. Discussed advancing to thin liquids I69.322 Dysarthria: Continue [employer] strategies to improve vocalization and are alternative methods of communication if needed. K59.00 Constipation: Start MiraLAX monitor for improvement. Bisacodyl supp prn Z73.6 ADL dysfunction: OT will work on improving ability to perform ADLs (including assistive devices) to increase independence and decrease caregiver burden and improve functional transfers and mobility training. R26.2 Difficulty walking: PT will work on gait training and proper use of assistive devices and advance as appropriate to use of stairs and outside ambulation on uneven surfaces. R26.81 Unsteadiness on feet: PT will work on improving static and dynamic sitt ing and standing balance as well as proper use of assistive devices to decrease risk of falls. R26.89 Abnormality of gait: PT will work to improve safety and efficiency of gait through neuromotor training and gait training along with instruction on proper use of assistive devices. M62.81 Muscle weakness: PT & OT will work on strengthening exercises to improve functional strength including mixture of closed and open kinetic chain exercises. R53.81 Debility: PT & OT will work on improving overall functional status to improve participation with ADLs, mobility and social involvement. R53.83 Fatigue: PT & OT will work on improving endurance through aerobic exercises and therapeutic activity while monitoring patients tolerance for activity and vital signs as needed. Internal medicine consultation for management of diabetes and hypertension. Appreciate their assistance. BP improving. GLU better DVT ppx: Lovenox Pain: Continue physical modalities in therapy and pain medications as needed to achieve functional pain control. Sleep: Monitor and address as needed. Bowel: Monitor and address as needed. Appetite: Monitor and address as needed. Discharge planning: Pending therapy progress and care plan meeting. Will continue discussion with therapy team, SW, patient and family. Restrictions/ Precautions: Falls, swallow WB status: FWB Functional Hx: ADLs: Independent Cognition: Independent Mobility: No AD Barriers to Discharge: Decreased mobility and ability to perform self care, balance deficits, weakness, dominant hemiparesis, dysphagia and dysarthria Estimated Length of Stay: 14-21 days. May be able to discharge this weekend. She will need periodic assistance and supervision. Family will need to attend family training prior to d/c. Discharge Destination: Home with family
--- NOTE | 2019-02-11 16:42 | Progress Note ---
Assessment and Plan --History of CVA; with right-sided weakness/dysarthria Not a candidate for TPA or thrombectomy, aspirin and statin Continue PT,OT,ST and rehabilitation --Poor oral intake/moderate malnutrition and hypoalbuminemia Encourage patient to increase her nutrition, nutritional supplements --Hypertension; well controlled Continue amlodipine, PRN hydralazine --Type 2 DM; glipizide dced due to hypoglycemia. A1c 9.7, SSC, encourage oral nutrition --Dyslipidemia; on statin, low cholesterol diet --Mild/moderate malnutrition hypoalbuminemia; nutrition supplements --DVT prophylaxis; Lovenox --Full code Status Plan of care reviewed with the patient and her nurse Continue PT/OT, discharge plan per rehab Brief History 64-year-old female patient recently diagnosed acute left CVA, not a candidate for TPA Right hemiparesis with dysarthria, and acute rehabilitation for PT OT ST and rehabilitation Hospitalists for medical management Hospitalist Physical General appearance: Present: no acute distress, well-nourished - EENT Eyes: Present: PERRL, EOM intact - Neck Neck: Present: supple, normal ROM - Respiratory Respiratory effort: normal Respiratory: bilateral: diminished, negative: rales, rhonchi, wheezing - Cardiovascular Rhythm: regular Heart Sounds: Present: S1 & S2 - Extremities Extremities: no ischemia, No edema - Abdominal General gastrointestinal: soft, non-tender, non-distended, normal bowel sounds - Integumentary Integumentary: Present: clear, warm - Psychiatric Psychiatric: appropriate mood/affect, cooperative - Neurologic Neurologic: moves all extremities, other (dysarthria, residual right-sided weakness) Subjective Date of service: 02/11/19 Principal diagnosis: CVA Interval history: Patient seen and examined medical records reviewed no new complaints, tolerating diet Alert and awake mild dysarthria Vital signs noted Objective - Constitutional Vitals: Vital Signs - 12hr 02/11/19 02/11/19 02/11/19 07:30 07:52 07:53 Temperature 98.4 F 98.4 F Pulse Rate 63 65 61 Respiratory 18 18 Rate Blood Pressure 149/87 Blood Pressure 149/87 [Left] O2 Sat by Pulse 100 100 Oximetry - Labs CBC & Chem 7: 02/12/19 04:39 02/12/19 04:39 Labs: Abnormal lab results 02/10/19 02/11/19 02/11/19 Range/Units 21:20 07:28 12:02 POC Glucose 158 H 113 H 142 H (70-105)
[2019-02-12] MEDS: HumaLOG SUB-Q SCH ×5 (00:28→21:36)
[2019-02-12 04:54] LABS: Hemoglobin 10.2 gm/dl (10.1-14.3); Mean Corpuscular HGB Conc 33 % (30-34); Mean Corpuscular Volume 84 fl (79-97); Platelet Count 226 K/mm3 (140-440); Red Blood Count 3.67 M/mm3 (3.65-5.03); Red Cell Distribution Width 14.2 % (13.2-15.2)
[2019-02-12 05:11] LABS: BUN/Creatinine Ratio 17; Blood Urea Nitrogen 17 mg/dL (7-17); Hemolysis Index 1
[2019-02-12 06:27] LABS: Basophils % (Manual) 0 % (0.0-1.8); RBC Morphology Normal; Total Cells Counted 100
[2019-02-12] MEDS: NORVASC PO SCH (09:20)
[2019-02-12] MEDS: ECOTRIN PO SCH (09:20)
[2019-02-12] MEDS: LOVENOX SUB-Q SCH (09:20)
[2019-02-12] MEDS: MIRALAX 3350 PO SCH (13:26)
--- NOTE | 2019-02-12 14:57 | Progress Note ---
Assessment and Plan --History of CVA; with right-sided weakness/dysarthria Not a candidate for TPA or thrombectomy, aspirin and statin Continue PT,OT,ST and rehabilitation --Poor oral intake/moderate malnutrition and hypoalbuminemia Encourage patient to increase her nutrition, nutritional supplements --Hypertension; well controlled Continue amlodipine, PRN hydralazine --Type 2 DM; glipizide dced due to hypoglycemia. A1c 9.7, SSC, encourage oral nutrition --Dyslipidemia; on statin, low cholesterol diet --Mild/moderate malnutrition hypoalbuminemia; nutrition supplements --DVT prophylaxis; Lovenox --Full code Status Plan of care reviewed with the patient and her nurse Continue PT/OT, discharge plan per rehab Brief History 64-year-old female patient recently diagnosed acute left CVA, not a candidate for TPA Right hemiparesis with dysarthria, and acute rehabilitation for PT OT ST and rehabilitation Hospitalists for medical management Hospitalist Physical General appearance: Present: no acute distress, well-nourished - EENT Eyes: Present: PERRL, EOM intact - Neck Neck: Present: supple, normal ROM - Respiratory Respiratory effort: normal Respiratory: bilateral: diminished, negative: rales, rhonchi, wheezing - Cardiovascular Rhythm: regular Heart Sounds: Present: S1 & S2 - Extremities Extremities: no ischemia, No edema - Abdominal General gastrointestinal: soft, non-tender, non-distended, normal bowel sounds - Integumentary Integumentary: Present: clear, warm - Psychiatric Psychiatric: appropriate mood/affect, cooperative - Neurologic Neurologic: moves all extremities, other (dysarthria, residual right-sided weakness) Subjective Date of service: 02/12/19 Principal diagnosis: CVA Interval history: Patient seen and examined medical records reviewed no new complaints, tolerating diet Alert and awake mild dysarthria Vital signs noted Objective - Constitutional Vitals: Vital Signs - 12hr 02/12/19 02/12/19 02/12/19 07:42 07:43 09:20 Temperature 97.8 F Pulse Rate 67 60 67 Respiratory 18 Rate Blood Pressure 132/94 132/94 O2 Sat by Pulse 98 99 Oximetry - Labs CBC & Chem 7: 02/12/19 04:39 02/12/19 04:39 Labs: Abnormal lab results 02/11/19 02/11/19 02/12/19 Range/Units 16:10 23:03 04:39 WBC 3.8 L (4.5-11.0) K/mm3 Seg Neuts % (Manual) 39.0 L (40.0-70.0) % Lymphocytes % (Manual) 54.0 H (13.4-35.0) % Seg Neutrophils # Man 1.5 L (1.8-7.7) K/mm3 Chloride (98-107) mmol/L Glucose (65-100) mg/dL POC Glucose 123 H 114 H (70-105) 02/12/19 02/12/19 Range/Units 04:39 12:05 WBC (4.5-11.0) K/mm3 Seg Neuts % (Manual) (40.0-70.0) % Lymphocytes % (Manual) (13.4-35.0) % Seg Neutrophils # Man (1.8-7.7) K/mm3 Chloride 108.5 H (98-107) mmol/L Glucose 113 H (65-100) mg/dL POC Glucose 151 H (70-105)
[2019-02-13] MEDS: NORVASC PO SCH (08:24)
[2019-02-13] MEDS: LOVENOX SUB-Q SCH (08:25)
[2019-02-13] MEDS: ECOTRIN PO SCH (08:25)
[2019-02-13] MEDS: HumaLOG SUB-Q SCH ×4 (08:34→21:35)
--- NOTE | 2019-02-13 10:13 | Progress Note ---
Subjective Date of service: 02/13/19 Principal diagnosis: CVA Interval history: 64-year-old female who presented to the ED with stroke symptoms. Stated that she had taken a nap and woke up with right facial droop and dysarthria. She was outside the therapeutic window for TPA and was not a candidate for thrombectomy. She was worked up for CVA and the brain MRI showed small left internal capsule lacunar infarct. Hemoglobin A1c at outside hospital was 5.3. She has a history of previous strokes in the past. She and her son state that she had recovered from previous strokes without major residual deficits. She is right hand dominant. She lives with family in a single story home and was previously independent with ADLs. She states is been several days since her last bowel movement. She's been sleeping poorly but declines assistance with medication. Secondary prevention was discussed with her and her son. Stroke prognosis and anticipated recovery time was also discussed. No complaints, looking forward to pending discharge. Will need to continue to work on speech issues. GLU ok. Most recent A1c at OSH was 5.3. Will need to follow up with PCP at discharge to reassess need for restarting glipizide. Has been ok off of medication but she may change eating habits once she is home. Encouraged to continue PO fluid intake. Vital signs within normal limits. Patient is participating in therapy and making reasonable progress. Taking rest breaks as needed. +BM. Denies pain, palpitations, dyspnea, cough, N/V or joint pain. Right inattention improving. All records, vitals, labs and medications were reviewed. No other issues per patient, nursing or therapy. Objective - Exam Narrative Exam: MUSCULOSKELETAL SPECIALTY EXAM CONSTITUTIONAL: Well developed, well nourished, appropriately groomed. RIGHT hand dominant. RESPIRATORY: Clear to auscultation bilaterally, no increased work of breathing CARDIOVASCULAR: Regular Rate/ Rhythm, no swelling, edema or tenderness in BUE or BLE. All extremities warm. GI: + bowel sounds, soft, NTTP, nondistended. INTEGUMENTARY: Normal, no lesion, rash, masses or bruising noted in extremities. MUSCULOSKELETAL: BUE and BLE normal without defect, crepitus, subluxation, effusion, arthritic changes or TTP. SA EF WE EE FF FA HF KE ADF EHL APF R 4-/5 4-/5 4-/5 4-/5 4-/5 4-/5 4-/5 4-/5 4-/5 4-/5 4-/5 L 5/5 5/5 5/5 5/5 5/5 5 /5 5/5 5/5 5/5 5/5 5/5 ROM full Tone normal NEURO: CN II - XII intact except Right facial droop Sensation intact in all extremities with extinction present on RLE No tremor noted in 4 extremities. Naming and repetition intact. Follows 2 step commands. Dysarthria present Dysphagia present Some right sided inattention when ambulating. Continue to push for improvement in scanning with walking. POSTURE and GAIT: Sitting posture good. Balance appears fair. Gait slowed, with improving gait pattern. PSYCH: Alert, orientated x3, affect appears flat. Insight appears intact. - Constitutional Vitals: Vital Signs - 12hr 02/13/19 02/13/19 02/13/19 04:44 07:30 08:24 Temperature 36.9 C 36.7 C Pulse Rate 53 L 62 62 Respiratory 16 18 Rate Blood Pressure 133/85 130/78 Blood Pressure 130/75 [Left] O2 Sat by Pulse 100 100 Oximetry 02/13/19 09:36 Temperature Pulse Rate Respiratory Rate Blood Pressure Blood Pressure [Left] O2 Sat by Pulse 100 Oximetry - Allied health notes Allied health notes reviewed: nursing, PT, ST, OT FIMS assessment as documented by PT/OT/ST: Grooming Patient cleans teeth/dentures: Yes Patient blanco/brushes hair: Yes Patient washes, rinses and Yes dries face: Patient washes, rinses and Yes dries hands: Patient shaves: No Patient applies make-up: No Patient performs (no make-up/ 3/4 (75%) shaving): Patient performs (w/ make-up/ 3/5 (60%) shaving): Grooming FIM Score 5. Supervision ([place] applies toothpaste or opens containers.) Toileting Toileting Device Commode over Toilet Patient able to: Adjust clothes before,Clean self,Adjust clothes after Patient able to perform: 3/3 (100%) Toileting FIM Score 5. Supv./Set-Up (Needs stand-by, set-up, applying prosth/orth.) Social interaction/Memory/Problem solving Social Interaction FIM Score 4. Minimal Assistance (Interacts appropriately 75-90%.) Memory FIM Score 5. Supervision (Needs cueing <10%, stressful/ unfamiliar situations.) Problem Solving FIM Score 5. Supervision (Needs cueing <10% to solve routine problems.) Transfers Mode of Locomotion: Wheelchair Bed/Chair/Wheelchair Transfers 5. Supervision (Needs supv. or set-up for FIM Score sliding board, foot rests.) Toilet Transfers FIM Score 4. Minimal Assistance (Patient = 75% or more. Needs touching.) Patient transferred to: Shower Shower Transfers FIM Score 4. Minimal Assistance (Patient = 75% or more. Needs touching.) Locomotion- Stairs Device used on Stairs Handrail/s Number of Stairs Ascended/ 12 Descended Patient used handrail/support: Yes Stairs FIM Score 5. Supervision (12-14 stairs w/ supv. 4-6 stairs independently.) Locomotion- walk/wheelchair Most Frequent Mode of Wheelchair Locomotion: Ambulation Distance 340 Walking FIM Score 5. Supervision (Minimum 150 ft. supv./cues or 50 ft. independently.) Wheelchair Propulsion Distance 340 Wheelchair FIM Score 5. Supervision (Minimum 150 ft. supv./cues or 50 ft. independently.) Eating Eating FIM Score 5. Supervision/Set-Up (Needs help w/ containers, cutting meat, etc.) Dressing-Upper body Patient retrieves clothing Yes items: Patient applies/removes UE No: N/A prosthesis or orthosis: Upper Body Dressing FIM Score 5. Supv./Set-Up ([place] sets out clothes or applies pros./orth.) Dressing-lower body Patient retrieves clothing Yes items: Patient applies/removes LE No: N/A prosthesis or orthosis: Lower Body Dressing FIM Score 5. Supv./Set-Up ([place] sets out clothes or applies pros./orth.) - Labs CBC & Chem 7: 02/12/19 04:39 02/12/19 04:39 Labs: Laboratory Results - last 72 hr 02/10/19 02/10/19 02/10/19 11:02 18:16 21:20 WBC RBC Hgb Hct MCV MCH MCHC RDW Plt Count Lymph % (Auto) Add Manual Diff Total Counted Seg Neutrophils % Seg Neuts % (Manual) Band Neutrophils % Lymphocytes % (Manual) Reactive Lymphs % (Man) Monocytes % (Manual) Eosinophils % (Manual) Basophils % (Manual) Metamyelocytes % Myelocytes % Promyelocytes % Blast Cells % Nucleated RBC % Seg Neutrophils # Man Band Neutrophils # Lymphocytes # (Manual) Abs React Lymphs (Man) Monocytes # (Manual) Eosinophils # (Manual) Basophils # (Manual) Metamyelocytes # Myelocytes # Promyelocytes # Blast Cells # WBC Morphology Hypersegmented Neuts Hyposegmented Neuts Hypogranular Neuts Smudge Cells Toxic Granulation Toxic Vacuolation Dohle Bodies Pelger-Huet Anomaly [place] Rods Platelet Estimate Clumped Platelets Plt Clumps, EDTA Large Platelets Giant Platelets Platelet Satelliting Plt Morphology Comment RBC Morphology Dimorphic RBCs Polychromasia Hypochromasia Poikilocytosis Anisocytosis Microcytosis Macrocytosis Spherocytes Pappenheimer Bodies Sickle Cells Target Cells Tear Drop Cells Ovalocytes Helmet Cells Estrada-[place] Bodies [place] Rings Brian Cells Bite Cells Crenated Cell Elliptocytes Acanthocytes (Spur) Rouleaux Hemoglobin C Crystals Schistocytes Malaria parasites Ritesh Bodies Hem Pathologist Commnt Sodium Potassium Chloride Carbon Dioxide Anion Gap BUN Creatinine Estimated GFR BUN/Creatinine Ratio Glucose POC Glucose 161 H 79 158 H Calcium 02/11/19 02/11/19 02/11/19 07:28 12:02 16:10 WBC RBC Hgb Hct MCV MCH MCHC RDW Plt Count Lymph % (Auto) Add Manual Diff Total Counted Seg Neutrophils % Seg Neuts % (Manual) Band Neutrophils % Lymphocytes % (Manual) Reactive Lymphs % (Man) Monocytes % (Manual) Eosinophils % (Manual) Basophils % (Manual) Metamyelocytes % Myelocytes % Promyelocytes % Blast Cells % Nucleated RBC % Seg Neutrophils # Man Band Neutrophils # Lymphocytes # (Manual) Abs React Lymphs (Man) Monocytes # (Manual) Eosinophils # (Manual) Basophils # (Manual) Metamyelocytes # Myelocytes # Promyelocytes # Blast Cells # WBC Morphology Hypersegmented Neuts Hyposegmented Neuts Hypogranular Neuts Smudge Cells Toxic Granulation Toxic Vacuolation Dohle Bodies Pelger-Huet Anomaly [place] Rods Platelet Estimate Clumped Platelets Plt Clumps, EDTA Large Platelets Giant Platelets Platelet Satelliting Plt Morphology Comment RBC Morphology Dimorphic RBCs Polychromasia Hypochromasia Poikilocytosis Anisocytosis Microcytosis Macrocytosis Spherocytes Pappenheimer Bodies Sickle Cells Target Cells Tear Drop Cells Ovalocytes Helmet Cells Estrada-[place] Bodies [place] Rings Brian Cells Bite Cells Crenated Cell Elliptocytes Acanthocytes ([place]) Rouleaux Hemoglobin C Crystals Schistocytes Malaria parasites Ritesh Bodies Hem Pathologist Commnt Sodium Potassium Chloride Carbon Dioxide Anion Gap BUN Creatinine Estimated GFR BUN/Creatinine Ratio Glucose POC Glucose 113 H 142 H 123 H Calcium 02/11/19 02/12/19 02/12/19 23:03 04:39 04:39 WBC 3.8 L RBC 3.67 Hgb 10.2 Hct 31.0 MCV 84 MCH 28 MCHC 33 RDW 14.2 Plt Count 226 Lymph % (Auto) Automatic Buffing Wheel Former Add Manual Diff Complete Total Counted 100 Seg Neutrophils % Automatic Buffing Wheel Former Seg Neuts % (Manual) 39.0 L Band Neutrophils % 0 Lymphocytes % (Manual) 54.0 H Reactive Lymphs % (Man) 0 Monocytes % (Manual) 3.0 Eosinophils % (Manual) 4.0 Basophils % (Manual) 0 Metamyelocytes % 0 Myelocytes % 0 Promyelocytes % 0 Blast Cells % 0 Nucleated RBC % Not Reportable Seg Neutrophils # Man 1.5 L Band Neutrophils # 0.0 Lymphocytes # (Manual) 2.1 Abs React Lymphs (Man) 0.0 Monocytes # (Manual) 0.1 Eosinophils # (Manual) 0.2 Basophils # (Manual) 0.0 Metamyelocytes # 0.0 Myelocytes # 0.0 Promyelocytes # 0.0 Blast Cells # 0.0 WBC Morphology Not Reportable Hypersegmented Neuts Not Reportable Hyposegmented Neuts Not Reportable Hypogranular Neuts Not Reportable Smudge Cells Not Reportable Toxic Granulation Not Reportable Toxic Vacuolation Not Reportable Dohle Bodies Not Reportable Pelger-Huet Anomaly Not Reportable [place] Rods Not Reportable Platelet Estimate Appears normal Clumped Platelets Not Reportable Plt Clumps, EDTA Not Reportable Large Platelets Not Reportable Giant Platelets Not Reportable Platelet Satelliting Not Reportable Plt Morphology Comment Not Reportable RBC Morphology Normal Dimorphic RBCs Not Reportable Polychromasia Not Reportable Hypochromasia Not Reportable Poikilocytosis Not Reportable Anisocytosis Not Reportable Microcytosis Not Reportable Macrocytosis Not Reportable Spherocytes Not Reportable Pappenheimer Bodies Not Reportable Sickle Cells Not Reportable Target Cells Not Reportable Tear Drop Cells Not Reportable Ovalocytes Not Reportable Helmet Cells Not Reportable Estrada-[place] Bodies Not Reportable [place] Rings Not Reportable Brian Cells Not Reportable Bite Cells Not Reportable Crenated Cell Not Reportable Elliptocytes Not Reportable Acanthocytes ([place]) Not Reportable Rouleaux Not Reportable Hemoglobin C Crystals Not Reportable Schistocytes Not Reportable Malaria parasites Not Reportable Ritesh Bodies Not Reportable Hem Pathologist Commnt No Sodium 145 Potassium 4.1 Chloride 108.5 H Carbon Dioxide 27 Anion Gap 14 BUN 17 Creatinine 1.0 Estimated GFR > 60 BUN/Creatinine Ratio 17 Glucose 113 H POC Glucose 114 H Calcium 9.0 02/12/19 02/12/19 02/12/19 12:05 16:35 21:40 WBC RBC Hgb Hct MCV MCH MCHC RDW Plt Count Lymph % (Auto) Add Manual Diff Total Counted Seg Neutrophils % Seg Neuts % (Manual) Band Neutrophils % Lymphocytes % (Manual) Reactive Lymphs % (Man) Monocytes % (Manual) Eosinophils % (Manual) Basophils % (Manual) Metamyelocytes % Myelocytes % Promyelocytes % Blast Cells % Nucleated RBC % Seg Neutrophils # Man Band Neutrophils # Lymphocytes # (Manual) Abs React Lymphs (Man) Monocytes # (Manual) Eosinophils # (Manual) Basophils # (Manual) Metamyelocytes # Myelocytes # Promyelocytes # Blast Cells # WBC Morphology Hypersegmented Neuts Hyposegmented Neuts Hypogranular Neuts Smudge Cells Toxic Granulation Toxic Vacuolation Dohle Bodies Pelger-Huet Anomaly [place] Rods Platelet Estimate Clumped Platelets Plt Clumps, EDTA Large Platelets Giant Platelets Platelet Satelliting Plt Morphology Comment RBC Morphology Dimorphic RBCs Polychromasia Hypochromasia Poikilocytosis Anisocytosis Microcytosis Macrocytosis Spherocytes Pappenheimer Bodies Sickle Cells Target Cells Tear Drop Cells Ovalocytes Helmet Cells Estrada-[place] Bodies [place] Rings Brian Cells Bite Cells Crenated Cell Elliptocytes Acanthocytes (Sp[place]) Rouleaux Hemoglobin C Crystals Schistocytes Malaria parasites Ritesh Bodies Hem Pathologist Commnt Sodium Potassium Chloride Carbon Dioxide Anion Gap BUN Creatinine Estimated GFR BUN/Creatinine Ratio Glucose POC Glucose 151 H 100 159 H Calcium 02/13/19 02/13/19 04:56 07:12 WBC RBC Hgb Hct MCV MCH MCHC RDW Plt Count Lymph % (Auto) Add Manual Diff Total Counted Seg Neutrophils % Seg Neuts % (Manual) Band Neutrophils % Lymphocytes % (Manual) Reactive Lymphs % (Man) Monocytes % (Manual) Eosinophils % (Manual) Basophils % (Manual) Metamyelocytes % Myelocytes % Promyelocytes % Blast Cells % Nucleated RBC % Seg Neutrophils # Man Band Neutrophils # Lymphocytes # (Manual) Abs React Lymphs (Man) Monocytes # (Manual) Eosinophils # (Manual) Basophils # (Manual) Metamyelocytes # Myelocytes # Promyelocytes # Blast Cells # WBC Morphology Hypersegmented Neuts Hyposegmented Neuts Hypogranular Neuts Smudge Cells Toxic Granulation Toxic Vacuolation Dohle Bodies Pelger-Huet Anomaly [place] Rods Platelet Estimate Clumped Platelets Plt Clumps, EDTA Large Platelets Giant Platelets Platelet Satelliting Plt Morphology Comment RBC Morphology Dimorphic RBCs Polychromasia Hypochromasia Poikilocytosis Anisocytosis Microcytosis Macrocytosis Spherocytes Pappenheimer Bodies Sickle Cells Target Cells Tear Drop Cells Ovalocytes Helmet Cells Estrada-[place] Bodies [place] Cells Bite Cells Crenated Cell Elliptocytes Acanthocytes (Sp[place]) Rouleaux Hemoglobin C Crystals Schistocytes Malaria parasites Ritesh Bodies Hem Pathologist Commnt Sodium Potassium Chloride Carbon Dioxide Anion Gap BUN Creatinine Estimated GFR BUN/Creatinine Ratio Glucose POC Glucose 78 123 H Calcium Assessment and Plan I69.351 CVA with hemiparesis of the right dominant side: Continue secondary stroke prevention. Monitor for post stroke depression and CRPS. Continue therapy in order to improve stroke recovery. Monitor for change in neurologic function or worsening of stroke symptoms. I69.391 Dysphagia: Continue dysphagia diet and advance as safely able. TRICK RODEO RIDER senait dailey and may use FEES and/or MBS to assess for safe diet upgrade. E-stim if needed. Discussed advancing to thin liquids I69.322 Dysarthria: Continue TRICK RODEO RIDER strategies to improve vocalization and are al ternative methods of communication if needed. K59.00 Constipation: Start MiraLAX monitor for improvement. Bisacodyl supp prn Z73.6 ADL dysfunction: OT will work on improving ability to perform ADLs ( including assistive devices) to increase independence and decrease caregiver burden and improve functional transfers and mobility training. R26.2 Difficulty walking: PT will work on gait training and proper use of assistive devices and advance as appropriate to use of stairs and outside ambulation on uneven surfaces. R26.81 Unsteadiness on feet: PT will work on improving static and dynamic sitting and standing balance as well as proper use of assistive devices to decrease risk of falls. R26.89 Abnormality of gait: PT will work to improve safety and efficiency of gait through neuromotor training and gait training along with instruction on proper use of assistive devices. M62.81 Muscle weakness: PT & OT will work on strengthening exercises to improve functional strength including mixture of closed and open kinetic chain exercises. R53.81 Debility: PT & OT will work on improving overall functional status to improve participation with ADLs, mobility and social involvement. R53.83 Fatigue: PT & OT will work on improving endurance through aerobic exercises and therapeutic activity while monitoring patients tolerance for activity and vital signs as needed. Internal medicine consultation for management of diabetes and hypertension. Appreciate their assistance. BP improving. GLU better DVT ppx: Lovenox Pain: Continue physical modalities in therapy and pain medications as needed to achieve functional pain control. Sleep: Monitor and address as needed. Bowel: Monitor and address as needed. Appetite: Monitor and address as needed. Discharge planning: Pending therapy progress and care plan meeting. Will continue discussion with therapy team, SW, patient and family. Restrictions/ Precautions: Falls, swallow WB status: FWB Functional Hx: ADLs: Independent Cognition: Independent Mobility: No AD Barriers to Discharge: Decreased mobility and ability to perform self care, balance deficits, weakness, dominant hemiparesis, dysphagia and dysarthria Estimated Length of Stay: 14-21 days. May be able to discharge this weekend. She will need periodic assistance and supervision. Family will need to attend family training prior to d/c. Discharge Destination: Home with family
[2019-02-13] MEDS: MIRALAX 3350 PO SCH (16:00)
[2019-02-14] MEDS: HumaLOG SUB-Q SCH (07:29)
[2019-02-14] MEDS: ECOTRIN PO SCH (08:15)
[2019-02-14] MEDS: NORVASC PO SCH (08:15)
[2019-02-14] MEDS: LOVENOX SUB-Q SCH (08:16)
[2019-02-14] MEDS: MIRALAX 3350 PO SCH (08:16)
--- NOTE | 2019-02-14 11:36 | Progress Note ---
Assessment and Plan --History of CVA; with right-sided weakness/dysarthria Not a candidate for TPA or thrombectomy, aspirin and statin Continue PT,OT,ST and rehabilitation --Poor oral intake/moderate malnutrition and hypoalbuminemia Encourage patient to increase her nutrition, nutritional supplements --Hypertension; well controlled Continue amlodipine, PRN hydralazine --Type 2 DM; glipizide dced due to hypoglycemia. A1c 9.7, SSC, encourage oral nutrition --Dyslipidemia; on statin, low cholesterol diet --Mild/moderate malnutrition hypoalbuminemia; nutrition supplements --DVT prophylaxis; Lovenox --Full code Status Plan of care reviewed with the patient and her nurse Continue PT/OT, discharge plan per rehab Brief History 64-year-old female patient recently diagnosed acute left CVA, not a candidate for TPA Right hemiparesis with dysarthria, and acute rehabilitation for PT OT ST and rehabilitation Hospitalists for medical management Hospitalist Physical General appearance: Present: no acute distress, well-nourished - EENT Eyes: Present: PERRL, EOM intact - Neck Neck: Present: supple, normal ROM - Respiratory Respiratory effort: normal Respiratory: bilateral: diminished, negative: rales, rhonchi, wheezing - Cardiovascular Rhythm: regular Heart Sounds: Present: S1 & S2 - Extremities Extremities: no ischemia, No edema - Abdominal General gastrointestinal: soft, non-tender, non-distended, normal bowel sounds - Integumentary Integumentary: Present: clear, warm - Psychiatric Psychiatric: appropriate mood/affect, cooperative - Neurologic Neurologic: moves all extremities, other (dysarthria, residual right-sided weakness) Subjective Date of service: 02/13/19 Principal diagnosis: CVA Interval history: Patient seen and examined medical records reviewed no new complaints, tolerating diet Alert and awake mild dysarthria Vital signs noted Objective - Constitutional Vitals: Vital Signs - 12hr 02/14/19 02/14/19 02/14/19 04:13 08:00 08:03 Temperature 97.7 F 98 F Pulse Rate 55 L 51 L 49 L Respiratory 16 18 Rate Blood Pressure 111/68 Blood Pressure 132/74 [Left] O2 Sat by Pulse 99 100 Oximetry - Labs CBC & Chem 7: 02/12/19 04:39 02/12/19 04:39 Labs: Abnormal lab results 02/13/19 02/13/19 Range/Units 16:25 21:37 POC Glucose 114 H 136 H (70-105)
[2019-02-15] MEDS: HumaLOG SUB-Q SCH ×5 (00:30→22:43)
[2019-02-15] MEDS: NORVASC PO SCH (09:35)
[2019-02-15] MEDS: ECOTRIN PO SCH (09:36)
[2019-02-15] MEDS: LOVENOX SUB-Q SCH (09:36)
[2019-02-15] MEDS: MIRALAX 3350 PO SCH (13:15)
--- NOTE | 2019-02-15 17:03 | Progress Note ---
Assessment and Plan --History of CVA; with right-sided weakness/dysarthria Not a candidate for TPA or thrombectomy, aspirin and statin Continue PT,OT,ST and rehabilitation --Poor oral intake/moderate malnutrition and hypoalbuminemia Encourage patient to increase her nutrition, nutritional supplements --Hypertension; well controlled Continue amlodipine, PRN hydralazine --Type 2 DM; glipizide dced due to hypoglycemia. A1c 9.7, SSC, encourage oral nutrition --Dyslipidemia; on statin, low cholesterol diet --Mild/moderate malnutrition hypoalbuminemia; nutrition supplements --DVT prophylaxis; Lovenox --Full code Status Plan of care reviewed with the patient and her nurse Continue PT/OT, discharge plan per rehab Brief History 64-year-old female patient recently diagnosed acute left CVA, not a candidate for TPA Right hemiparesis with dysarthria, and acute rehabilitation for PT OT ST and rehabilitation Hospitalists for medical management Hospitalist Physical General appearance: Present: no acute distress, well-nourished - EENT Eyes: Present: PERRL, EOM intact - Neck Neck: Present: supple, normal ROM - Respiratory Respiratory effort: normal Respiratory: bilateral: diminished, negative: rales, rhonchi, wheezing - Cardiovascular Rhythm: regular Heart Sounds: Present: S1 & S2 - Extremities Extremities: no ischemia, No edema - Abdominal General gastrointestinal: soft, non-tender, non-distended, normal bowel sounds - Integumentary Integumentary: Present: clear, warm - Psychiatric Psychiatric: appropriate mood/affect, cooperative - Neurologic Neurologic: moves all extremities, other (dysarthria, residual right-sided weakness) Subjective Date of service: 02/15/19 Principal diagnosis: CVA Interval history: Patient seen and examined medical records reviewed no new complaints, tolerating diet Alert and awake mild dysarthria Vital signs noted Objective - Constitutional Vitals: Vital Signs - 12hr 02/15/19 02/15/19 02/15/19 07:35 09:35 12:05 Temperature 98.8 F 98.4 F Pulse Rate 76 76 94 H Respiratory 18 18 Rate Blood Pressure 147/96 Blood Pressure 147/96 138/98 [Left] O2 Sat by Pulse 99 99 Oximetry 02/15/19 16:55 Temperature 98.6 F Pulse Rate 62 Respiratory 18 Rate Blood Pressure Blood Pressure 128/76 [Left] O2 Sat by Pulse 98 Oximetry - Labs CBC & Chem 7: 02/12/19 04:39 02/12/19 04:39 Labs: Abnormal lab results 02/14/19 02/15/19 02/15/19 Range/Units 21:39 08:00 16:11 POC Glucose 124 H 112 H 111 H (70-105)
[2019-02-16] MEDS: HumaLOG SUB-Q SCH ×2 (09:17→12:15)
[2019-02-16] MEDS: LOVENOX SUB-Q SCH (09:51)
[2019-02-16] MEDS: ECOTRIN PO SCH (09:51)
[2019-02-16] MEDS: MIRALAX 3350 PO SCH (09:51)
[2019-02-16] MEDS: NORVASC PO SCH (09:51)
--- NOTE | 2019-02-16 11:41 | Discharge Summary ---
Providers - Providers Date of Admission: 01/26/19 19:49 Date of discharge: 02/16/19 Attending physician: DAPHNE WYATT III, MD 01/26/19 19:12 Consult to Dietitian/Nutrition [CONS] Routine Physician Instructions: Reason For Exam: Reason for Consult: Diet education Consult to Physician [CONS] Routine Comment: CONSULT COMPLETED - CARLOS Consulting Provider: CHARANJIT DEL RIO Physician Instructions: Reason For Exam: DM, HTN management Occupational Therapy Evaluate and Treat [CONS] Routine Comment: Reason For Exam: ADL dysfunction Physical Therapy Evaluation and Treat [CONS] Routine Comment: Reason For Exam: Mobility Dysfunction Speech Therapy Evaluation and Treat [CONS] Routine Reason For Exam: Dysphagia, cognition eval & treat 01/26/19 19:20 Consult to Case Management [CONS] Routine Services Needed at Discharge: Home Health Services Notified:: adrianna notified Primary care physician: CONTROL INSPECTOR Hospitalization Reason for admission: CVA Condition: Good Pertinent studies: NA Procedures: NA Hospital course: 64-year-old female who presented to the ED with stroke symptoms. Stated that she had taken a nap and woke up with right facial droop and dysarthria. She was outside the therapeutic window for TPA and was not a candidate for thrombectomy. She was worked up for CVA and the brain MRI showed small left internal capsule lacunar infarct. Hemoglobin A1c at outside hospital was 5.3. She has a history of previous strokes in the past. She and her son state that she had recovered from previous strokes without major residual deficits. She is right hand dominant. She lives with family in a single story home and was previously independent with ADLs. She states is been several days since her last bowel movement. She's been sleeping poorly but declines assistance with medication. Secondary prevention was discussed with her and her son. Stroke prognosis and anticipated recovery time was also discussed. Patient progressed well from a therapy standpoint and was able to ambulate with a rolling walker with supervision. She was standby assist for most ADLs. I advised her and family of the importance of secondary stroke prevention. She was taken off of diabetic medications due to hypoglycemia. We first attempted to wean her down on lower doses but she remained hypoglycemic. May have with oral intake and she should be monitored as an outpatient to ensure she does not need to return to taking her glipizide. Her most recent A1c at the outside hospital was 5.3. Disposition: DC-01 TO HOME OR SELFCARE Time spent for discharge: >30 MINS - Discharge Diagnoses (1) CVA (cerebral vascular accident) Status: Acute Qualifiers: Laterality of affected vessel: left Core Measure Documentation - Palliative Care Palliative Care/ Comfort Measures: Not Applicable - Core Measures Any of the following diagnoses?: stroke - Stroke Discharge Requirements Statin for LDL = or >70 mg/dl on DC: Yes Anticoag for atrial fib/atrial flutter: Not Applicable Antithrombotic for ischemic stroke: Yes Exam - Physical Exam Narrative exam: MUSCULOSKELETAL SPECIALTY EXAM CONSTITUTIONAL: Well developed, well nourished, appropriately groomed. RIGHT hand dominant. RESPIRATORY: Clear to auscultation bilaterally, no increased work of breathing CARDIOVASCULAR: Regular Rate/ Rhythm, no swelling, edema or tenderness in BUE or BLE. All extremities warm. GI: + bowel sounds, soft, NTTP, nondistended. INTEGUMENTARY: Normal, no lesion, rash, masses or bruising noted in extremities. MUSCULOSKELETAL: BUE and BLE normal without defect, crepitus, subluxation, effusion, arthritic changes or TTP. SA EF WE EE FF FA HF KE ADF EHL APF R 4/5 4/5 4/5 4/5 4/5 4/5 4/5 4/5 4/5 4/5 4/5 L 5/5 5/5 5/5 5/5 5/5 5 /5 5/5 5/5 5/5 5/5 5/5 ROM full Tone normal NEURO: CN II - XII intact except Right facial droop Sensation intact in all extremities with extinction present on RLE No tremor noted in 4 extremities. Naming and repetition intact. Follows 2 step commands. Dysarthria present Dysphagia present Slight right sided inattention when ambulating. Continue to push for improvement in scanning with walking. POSTURE and GAIT: Sitting posture good. Balance appears fair. Gait slowed, with improving gait pattern. PSYCH: Alert, orientated x3, affect appears flat. Insight appears intact. - Constitutional Vitals: Temp Pulse Resp BP Pulse Ox 37.1 C 66 18 136/96 100 02/16/19 08:40 02/16/19 09:51 02/16/19 08:40 02/16/19 09:51 02/16/19 08:40 Plan Activity: advance as tolerated, no driving until cleared by PCP, fall precautions Weight Bearing Status: Full Weight Bearing Diet: diabetic, other ([facility] Soft / Ground / Thin Liquids) Special Instructions: record blood sugar diary, smoking cessation, physical therapy, occupational therapy Durable Medical Equipment Needed Upon Discharge: Walker-Rolling Follow up with: PRIMARY CARE,MD [Primary Care Provider] - 7 Days Prescriptions: AtorvaSTATin [Lipitor] 40 mg PO QHS 30 Days #30 tablet Aspirin EC [Aspirin Enteric Coated TAB] 325 mg PO QDAY 30 Days #30 tablet Polyethylene Glycol 3350 [Miralax 3350] 17 gm PO QDAY 30 Days #30 powd.pack amLODIPine [Norvasc] 10 mg PO QDAY 30 Days #30 tablet
[2019-02-16 12:26] VITALS: BP 128/82
--- NOTE | 2019-02-16 13:01 | Progress Note ---
Assessment and Plan --History of CVA; with right-sided weakness/dysarthria Not a candidate for TPA or thrombectomy, aspirin and statin Continue PT,OT,ST and rehabilitation --Poor oral intake/moderate malnutrition and hypoalbuminemia Encourage patient to increase her nutrition, nutritional supplements --Hypertension; well controlled Continue amlodipine, PRN hydralazine --Type 2 DM; glipizide dced due to hypoglycemia. A1c 9.7, SSC, encourage oral nutrition --Dyslipidemia; on statin, low cholesterol diet --Mild/moderate malnutrition hypoalbuminemia; nutrition supplements --DVT prophylaxis; Lovenox --Full code Status Plan of care reviewed with the patient and her nurse Continue PT/OT, discharge plan per rehab Brief History 64-year-old female patient recently diagnosed acute left CVA, not a candidate for TPA Right hemiparesis with dysarthria, and acute rehabilitation for PT OT ST and rehabilitation Hospitalists for medical management Hospitalist Physical General appearance: Present: no acute distress, well-nourished - EENT Eyes: Present: PERRL, EOM intact - Neck Neck: Present: supple, normal ROM - Respiratory Respiratory effort: normal Respiratory: bilateral: diminished, negative: rales, rhonchi, wheezing - Cardiovascular Rhythm: regular Heart Sounds: Present: S1 & S2 - Extremities Extremities: no ischemia, No edema - Abdominal General gastrointestinal: soft, non-tender, non-distended, normal bowel sounds - Integumentary Integumentary: Present: clear, warm - Psychiatric Psychiatric: appropriate mood/affect, cooperative - Neurologic Neurologic: moves all extremities, other (dysarthria, residual right-sided weakness) Subjective Date of service: 02/16/19 Principal diagnosis: CVA Interval history: Patient seen and examined medical records reviewed no new complaints, tolerating diet Alert and awake mild dysarthria Vital signs noted Objective - Constitutional Vitals: Vital Signs - 12hr 02/16/19 02/16/19 02/16/19 03:31 08:40 09:51 Temperature 98.7 F Pulse Rate 63 66 66 Respiratory 18 Rate Blood Pressure 135/85 136/96 136/96 O2 Sat by Pulse 99 100 Oximetry 02/16/19 12:16 Temperature 98.1 F Pulse Rate 60 Respiratory 18 Rate Blood Pressure 128/82 O2 Sat by Pulse 97 Oximetry - Labs CBC & Chem 7: 02/12/19 04:39 02/12/19 04:39 Labs: Abnormal lab results 02/15/19 02/16/19 Range/Units 16:11 08:46 POC Glucose 111 H 115 H (70-105)
== END 2019-02-16 14:05 | disposition home or self-care (01) | DRG 65 ==
LOC: 3A 17:22 → UNDOADMIN 17:22 → 3B 19:49
PROVIDERS: ADMIT Physical Medicine & Rehabilitation; ATTEND Physical Medicine & Rehabilitation
PROC: BD11YZZ Fluoroscopy of Esophagus using Other Contrast (ICD-10-PCS; principal; 2019-01-28)
DX: I63.9 Cerebral infarction, unspecified (principal); I69.351 Hemiplegia and hemiparesis following cerebral infarction affecting right dominant side; E44.0 Moderate protein-calorie malnutrition; E11.9 Type 2 diabetes mellitus without complications; I10 Essential (primary) hypertension; K59.00 Constipation, unspecified; R47.1 Dysarthria and anarthria; R13.10 Dysphagia, unspecified; R53.81 Other malaise; E78.5 Hyperlipidemia, unspecified; Z82.49 Family history of ischemic heart disease and other diseases of the circulatory system; Z83.3 Family history of diabetes mellitus; Z80.9 Family history of malignant neoplasm, unspecified; Z68.22 Body mass index [BMI] 22.0-22.9, adult
CPT/HCPCS: 36415; 74230; 80048; 80053; 80061; 82962; 83735; 84134; 85007; 85025; G0378; G0515; A9270-GY; J1650; J1815